=== PATIENT | female | born 1940 | race Caucasian/White ===

== ENCOUNTER 2016-12-18 16:09 | Emergency (ER) | payer OTHER ==
[~2016-12-18] VITALS: Ht 152.4 cm; Wt 51.8 kg
[~2016-12-18 16:09] MED LIST: ASPI-99 PO; IMOD2TAB PO; MORP30SU PO; PARO40TA PO; REME15TA PO; REST30CA PO; SYNT50TA PO
[2016-12-18 16:25] VITALS: BP 139/80; PULSE 84; RESP 17; TEMP 97.5; O2SAT 97
[2016-12-18 16:42] VITALS: BP 139/80; PULSE 85; RESP 16; TEMP 98.1; O2SAT 97
[2016-12-18 16:56] VITALS: O2SAT 97
--- NOTE | 2016-12-18 16:56 | PD ---
HPI Chief Complaint: General Weakness Time Seen by Provider: 16:45 Travel History International Travel<30 days: No Contact w/Intl Traveler<30days: No Traveled to known affect area: No History of Present Illness HPI This is a 76-year-old female presents via EMS for evaluation of fatigue. For the past 4-5 days the patient has had excessive fatigue as well as a dry cough, congestion. Her primary care physician Dr. Deng wilburn and a five-day course of azithromycin which she started 4 days ago. She has been feeling improved but she has been sleeping a lot. Today she woke up and went back to bed and reportedly her was attempting to wake her up was unable to and so paramedics were recalled. The patient woke up shortly after the paramedics arrived. The patient reports that she currently feels some fatigue but is otherwise without complaint. She denies chest pain or shortness of breath, nausea or vomiting, abdominal pain, diarrhea or constipation, dysuria, headache , blurred vision. She has a history of COPD, hypothyroidism, chronic back pain for which she takes morphine. She reports that her morphine is locked up at home and she has no axis to it, her administers it to her as prescribed and she has not taken any today. She has been seen here in the past for opiate overdose several times. She has no other complaints at this time. PFSH Past Medical History Arthritis: No Asthma: No Autoimmune Disease: No Blood Disorders: No Anxiety: Yes Depression: Yes Heart Rhythm Problems: No Cancer: No Cardiovascular Problems: No High Cholesterol: No Chemotherapy: No Chest Pain: Yes (AUGUST 2014) Congestive Heart Failure: No COPD: Yes Cerebrovascular Accident: No Diabetes: No Diminished Hearing: No Endocrine: Yes Gastrointestinal Disorders: No GERD: No Genitourinary: No Headaches: No Hiatal Hernia: No Hypertension: No Immune Disorder: No Implanted Vascular Access Dvce: No Kidney Stones: No Musculoskeletal: No Neurologic: Yes (SEIZURES) Psychiatric: No Reproductive: No Respiratory: Yes (?COPD) Immunizations Current: Yes Migraines: No Pneumonia: Yes Radiation Therapy: No Renal Failure: No Seizures: Yes Sickle Cell Disease: No Sleep Apnea: No Thyroid Disease: Yes (HYPOTHYROIDISM) Ulcer: No PNEUMOCCOCAL Vaccine (Year): 1 ?: Not Menopausal: Yes : 12 Para: 8 Miscarriage: 4 Tubal Ligation: Yes Past Surgical History Abdominal Surgery: Yes (cholesectomy) AICD: No Appendectomy: Yes Arteriovenous Shunt: No Cardiac Surgery: No Cholecystectomy: Yes (1984) Ear Surgery: No Endocrine Surgery: No Eye Surgery: No Genitourinary Surgery: No Gynecologic Surgery: Yes Hysterectomy: Yes Insulin Pump: No Joint Replacement: No Neurologic Surgery: No Oral Surgery: No Pacemaker: No Thoracic Surgery: No Other Surgery: Yes Social History Alcohol Use: No Tobacco Use: No Substance Use: No Allergies-Medications (Allergen,Severity, Reaction): Coded Allergies: Phenergan (Verified Allergy, Severe, Restlessness, 12/18/16) Talwin (Verified Allergy, Severe, Hallucinations, 12/18/16) Reported Meds & Prescriptions Reported Meds & Active Scripts Active Imodium A-D (Loperamide HCl) 2 Mg Tab 2 Mg PO ONCE PRN DO NOT EXCEED 8 CAPSULES/TABLETS 24 HOURS Paxil (Paroxetine HCl) 40 Mg Tab 40 Mg PO DAILY Reported Morphine Sulfate Ir 30 mg Tab (Morphine Sulfate) 30 Mg Tab 30 Mg PO Q6H PRN Synthroid 50 mcg (Levothyroxine Sodium) 50 Mcg Tab 50 Mcg PO DAILY Remeron 15 mg (Mirtazapine) 15 Mg Tab 15 Tab PO HS Aspirin 81 Mg Tab 81 Mg PO DAILY Restoril 30 mg (Temazepam) 30 Mg Cap 30 Mg PO HS Review of Systems Except as stated in HPI: all other systems reviewed are Neg Physical Exam Narrative GENERAL: Pleasant well-developed well-nourished female in no acute distress alert and interactive. SKIN: Warm and dry. HEAD: Atraumatic. Normocephalic. EYES: Pupils equal and round. No scleral icterus. No injection or drainage. ENT: No nasal bleeding or discharge. Mucous membranes pink and moist. NECK: Trachea midline. No JVD. CARDIOVASCULAR: Regular rate and rhythm. No murmur appreciated. RESPIRATORY: No accessory muscle use. Clear to auscultation. Breath sounds equal bilaterally. GASTROINTESTINAL: Abdomen soft, non-tender, nondistended. Hepatic and splenic margins not palpable. MUSCULOSKELETAL: No obvious deformities. No clubbing. No cyanosis. No edema. NEUROLOGICAL: Awake and alert. No obvious cranial nerve deficits. Motor grossly within normal limits. Normal speech. PSYCHIATRIC: Appropriate mood and affect; insight and judgment normal. Data Data Last Documented VS Vital Signs Date Time Temp Pulse Resp B/P Pulse Ox O2 Delivery O2 Flow Rate FiO2 12/18/16 16:56 97 Room Air 12/18/16 16:42 98.1 85 16 139/80 Orders Electrocardiogram (12/18/16 16:54) Complete Blood Count With Diff (12/18/16 16:54) Comprehensive Metabolic Panel (12/18/16 16:54) Creatine Kinase (Cpk) (12/18/16 16:54) Troponin I (12/18/16 16:54) Thyroid Stimulating Hormone (12/18/16 16:54) Urinalysis - C+S If Indicated (12/18/16 16:54) Chest, Single Ap (12/18/16 16:54) Ecg Monitoring (12/18/16 16:54) Iv Access Insert/Monitor (12/18/16 16:54) Oximetry (12/18/16 16:54) Sodium Chloride 0.9% Flush (Ns Flush) (12/18/16 17:00) Drug Screen, Random Urine (12/18/16 16:54) Alcohol (Ethanol) (12/18/16 16:54) Influenzae A/B Antigen (12/18/16 16:54) Labs Laboratory Tests Test 12/18/16 12/18/16 12/18/16 17:00 17:30 19:15 White Blood Count 5.6 TH/MM3 Red Blood Count 4.50 MIL/MM3 Hemoglobin 14.0 GM/DL Hematocrit 41.9 % Mean Corpuscular Volume 93.0 FL Mean Corpuscular Hemoglobin 31.1 PG Mean Corpuscular Hemoglobin 33.5 % Concent Red Cell Distribution Width 15.0 % Platelet Count 120 TH/MM3 Mean Platelet Volume 10.0 FL Neutrophils (%) (Auto) 72.0 % Lymphocytes (%) (Auto) 18.3 % Monocytes (%) (Auto) 7.9 % Eosinophils (%) (Auto) 1.1 % Basophils (%) (Auto) 0.7 % Neutrophils # (Auto) 4.0 TH/MM3 Lymphocytes # (Auto) 1.0 TH/MM3 Monocytes # (Auto) 0.4 TH/MM3 Eosinophils # (Auto) 0.1 TH/MM3 Basophils # (Auto) 0.0 TH/MM3 CBC Comment DIFF FINAL Differential Comment Urine Color YELLOW Urine Turbidity CLEAR Urine pH 6.5 Urine Specific [place] 1.007 Urine Protein NEG mg/dL Urine Glucose (UA) NEG mg/dL Urine Ketones TRACE mg/dL Urine Occult Blood NEG Urine Nitrite NEG Urine Bilirubin NEG Urine Urobilinogen LESS THAN 2.0 MG/DL Urine Leukocyte Esterase NEG Urine RBC LESS THAN 1 /hpf Urine WBC LESS THAN 1 /hpf Urine Squamous Epithelial <1 /hpf Cells Microscopic Urinalysis Comment CATH-CULT NOT IND Urine Opiates Screen POS Urine Barbiturates Screen NEG Urine Amphetamines Screen NEG Urine Benzodiazepines Screen POS Urine Cocaine Screen NEG Urine Cannabinoids Screen NEG Sodium Level 141 MEQ/L Potassium Level 4.5 MEQ/L Chloride Level 109 MEQ/L Carbon Dioxide Level 28.5 MEQ/L Anion Gap 4 MEQ/L Blood Urea Nitrogen 8 MG/DL Creatinine 0.79 MG/DL Estimat Glomerular Filtration 71 ML/MIN Rate Random Glucose 102 MG/DL Calcium Level 8.1 MG/DL Total Bilirubin 0.5 MG/DL Aspartate Amino Transf 24 U/L (AST/SGOT) Alanine Aminotransferase 19 U/L (ALT/SGPT) Alkaline Phosphatase 186 U/L Total Creatine Kinase 58 U/L Troponin I LESS THAN 0.02 NG/ML Total Protein 6.2 GM/DL Albumin 3.0 GM/DL Thyroid Stimulating Hormone 0.959 uIU/ML 3rd Gen Ethyl Alcohol Level LESS THAN 3 MG/DL MDM Medical Decision Making Medical Screen Exam Complete: Yes Emergency Medical Condition: Yes Medical Record Reviewed: Yes Differential Diagnosis Opiate overdose, bronchitis, sepsis, pneumonia, COPD exacerbation, electrolyte imbalance, dehydration Narrative Course This is a 76 year old female who has been having increased fatigue as well as a cough and congestion over the past 4-5 days, just completed a five-day course of azithromycin. Reportedly family members were having difficulty arousing her and so paramedics were called. Since her arrival here she has been awake, alert , properly interactive. Physical examination is reassuring. She's been ambulatory back and forth from the restroom with no difficulty. Plan is for basic lab work, chest x-ray, EKG, ECG monitoring pulse oximetry. The patient's laboratory imaging studies been reviewed. CBC reveals a platelet count of 120 otherwise unremarkable. CMP reveals calcium 8.1, ALP 186, total protein 6.2 otherwise unremarkable. TSH 0.959 toxicology positive for opiates and benzodiazepines urinalysis reveals trace ketones. Chest x-ray reveals no evidence of pneumonia. I suspect that her upper respiratory symptoms are viral in nature. This pointed time the plan is to discharge the patient home in the care of her daughter for follow-up with primary care physician. She is stable for discharge. Diagnosis Primary Impression: Upper respiratory infection Qualified Code: J06.9 - Upper respiratory tract infection, unspecified type Additional Impression: Medication side effect Qualified Code: T88.7XXA - Medication side effect, initial encounter Additional Instructions: Stay well-hydrated and well-nourished. Follow-up with primary care physician. Return for any emergent medical conditions. Med/Other Pt SpecificInfo: No Change to Meds Disposition: 01 DISCHARGE HOME Condition: Stable Eliseo Haro Dec 18, 2016 16:56
[2016-12-18] MEDS ORDERED: SODIUM CHLORIDE 0.9% FLUSH 5 ML FLUSH IV FLUSH PRN (17:00)
--- NOTE | 2016-12-18 17:18 | RADRPT ---
EXAM DATE/TIME: 12/18/2016 16:52 [facility] COMPARISON: CHEST SINGLE AP, August 31, 2015, 13:47. INDICATIONS : Cough MEDICAL HISTORY : Hypertension. Myocardial infarction. SURGICAL HISTORY : CABG. ENCOUNTER: Initial ACUITY: 4 - 6 days PAIN SCORE: 0/10 LOCATION: Bilateral chest FINDINGS: A single view of the chest demonstrates the lungs to be symmetrically aerated without evidence of mas s, infiltrate or effusion. Mild cardiomegaly. Osseous structures are intact. CONCLUSION: Mild cardiomegaly. Clear lungs. Thomas Roberts Jr., MD on December 18, 2016 at 17:15 Board Certified Radiologist. This report was verified electronically.
[2016-12-18 17:59] LABS: BASOPHIL % 0.7 % (0.0-2.0); EOSINOPHIL # 0.1 TH/MM3 (0-0.4); EOSINOPHIL % 1.1 % (0.0-4.0); HEMATOCRIT 41.9 % (35.0-46.0); HEMO FLAGS DIFF FINAL; LYMPH % 18.3 % (9.0-44.0); MEAN CORPUSCULAR HEMOGLOBIN 31.1 PG (27.0-34.0); MEAN CORPUSCULAR HGB CONC 33.5 % (32.0-36.0); MONO % 7.9 % (0.0-8.0); PLATELET COUNT 120 TH/MM3 (150-450); WHITE BLOOD COUNT 5.6 TH/MM3 (4.0-11.0)
[2016-12-18 18:06] LABS: BLOOD, URINE NEG (NEG); GLUCOSE,URINE NEG (NEG); KETONE, URINE TRACE mg/dL (NEG); NITRITE,URINE NEG (NEG); PH, URINE 6.5 (5.0-8.5); SQUAMOUS EPITHELIAL CELL URINE <1 /hpf (0-5); URINE COLOR YELLOW (YELLW/STRAW)
[2016-12-18 18:07] LABS: COMMENT (UR) CATH-CULT NOT IND; CULTURE IF INDICATED CATH CULTURE NOT IND
[2016-12-18 18:11] LABS: AMPHETAMINE, URINE NEG (NEG); BARBITURATES, URINE NEG (NEG); COCAINE, URINE NEG (NEG)
[2016-12-18 20:01] LABS: ANION GAP 4 MEQ/L (5-15); AST (GOT) 24 U/L (15-37); BICARBONATE 28.5 MEQ/L (21.0-32.0); BLOOD UREA NITROGEN 8 MG/DL (7-18); CHLORIDE 109 MEQ/L (98-107); GLOMERULAR FILTRATION RATE 71 ML/MIN (>89); POTASSIUM 4.5 MEQ/L (3.5-5.1); SODIUM (NA) 141 MEQ/L (136-145)
[2016-12-18 20:07] LABS: ALT (GPT) 19 U/L (10-53)
[2016-12-18 20:12] LABS: ALKALINE PHOSPHATASE 186 U/L (45-117); TOTAL BILIRUBIN ADULT 0.5 MG/DL (0.2-1.0)
[2016-12-18 20:15] LABS: CREATINE KINASE 58 U/L (26-192)
[2016-12-18 20:41] VITALS: BP 106/74
--- NOTE | 2016-12-19 12:08 | EKG ---
Date Performed: 12/18/2016 Time Performed: 18:26:47 PTAGE: 76 years EKG: Sinus rhythm NORMAL ECG Compared to prior tracing no significant change DOCTOR: Mac Bergman Interpretating Date/Time 12/19/2016 12:06:19
== END 2016-12-18 20:46 | disposition home or self-care (01) ==
LOC: NEDAMB 16:09
DX: J06.9 Acute upper respiratory infection, unspecified (principal); T88.7XXA Unspecified adverse effect of drug or medicament, initial encounter; R53.83 Other fatigue; I51.7 Cardiomegaly; J44.9 Chronic obstructive pulmonary disease, unspecified; E03.9 Hypothyroidism, unspecified; R56.9 Unspecified convulsions; F41.9 Anxiety disorder, unspecified; F32.9 Major depressive disorder, single episode, unspecified
CPT/HCPCS: 71010; 80053; 80307; 81001; 82550; 84443; 84484; 85025; 87804; 93005

== ENCOUNTER 2017-07-08 18:43 | Emergency (ER) | payer OTHER ==
[~2017-07-08] VITALS: Ht 152.4 cm; Wt 47.0 kg
[2017-07-08 18:45] VITALS: BP 134/70; PULSE 102; RESP 13; TEMP 98.7; O2SAT 98
--- NOTE | 2017-07-08 19:13 | PD ---
HPI Chief Complaint: General Weakness Time Seen by Provider: 19:12 Travel History International Travel<30 days: No Contact w/Intl Traveler<30days: No Traveled to known affect area: No History of Present Illness HPI 76-year-old female came to the emergency room with history of not feeling well for past 1 month. Patient says that she has been nauseous and decrease appetite for one month. She has vomited once or twice during that period but overall has lost some weight. No history of diarrhea or constipation. She has had regular bowel movements that's like her usual. No history of blood in her vomit or stool. No history of cough, no history of fever or chills. Patient is a smoker and smokes half a pack for over 25 years. She appeared to be extremely anxious and shaky. Patient says that she has had issues with her nerves and her primary care will did not give anything for her nerves. She thinks that most of her problems are because she is anxious and depressed. Patient says everybody around me is dying. Patient does not have any suicidal thoughts. Vital signs were relatively stable. Patient is on antidepressant medication. She has not discussed about her condition and past 1 month with a primary care physician. Her son brought her in. No history of chest pain or any other new pains. [facility] Past Medical History Narrative Medical List of her past medical, surgical, social and family history is reviewed from the nursing note. Arthritis: No Asthma: No Autoimmune Disease: No Blood Disorders: No Anxiety: Yes Depression: Yes Heart Rhythm Problems: No Cancer: No Cardiovascular Problems: No High Cholesterol: No Chemotherapy: No Chest Pain: Yes (AUGUST 2014) Congestive Heart Failure: No COPD: Yes Cerebrovascular Accident: No Diabetes: No Diminished Hearing: No Endocrine: Yes Gastrointestinal Disorders: No GERD: No Genitourinary: No Headaches: No Hiatal Hernia: No Hypertension: No Immune Disorder: No Implanted Vascular Access Dvce: No Kidney Stones: No Musculoskeletal: No Neurologic: Yes (SEIZURES) Psychiatric: No Reproductive: No Respiratory: Yes (?COPD) Immunizations Current: Yes Migraines: No Pneumonia: Yes Radiation Therapy: No Renal Failure: No Seizures: Yes Sickle Cell Disease: No Sleep Apnea: No Thyroid Disease: Yes (HYPOTHYROIDISM) Ulcer: No PNEUMOCCOCAL Vaccine (Year): 1 Menopausal: Yes : 12 Para: 8 Miscarriage: 4 Tubal Ligation: Yes Past Surgical History Abdominal Surgery: Yes (cholesectomy) AICD: No Appendectomy: Yes Arteriovenous Shunt: No Cardiac Surgery: No Cholecystectomy: Yes (1984) Ear Surgery: No Endocrine Surgery: No Eye Surgery: No Genitourinary Surgery: No Gynecologic Surgery: Yes Hysterectomy: Yes Insulin Pump: No Joint Replacement: No Neurologic Surgery: No Oral Surgery: No Pacemaker: No Thoracic Surgery: No Other Surgery: Yes Social History Alcohol Use: No Tobacco Use: Yes Substance Use: No Allergies-Medications (Allergen,Severity, Reaction): Coded Allergies: pentazocine (Unverified Allergy, Severe, Hallucinations, 01/09/17) promethazine (Unverified Allergy, Severe, Restlessness, 01/09/17) Comments List of her allergies reviewed from the nursing note. Reported Meds & Prescriptions Reported Meds & Active Scripts Active Reported Synthroid (Levothyroxine Sodium) 50 Mcg Tab 50 Mcg PO DAILY Restoril (Temazepam) 30 Mg Cap 30 Mg PO HS PRN Paxil (Paroxetine HCl) 10 Mg Tab 40 Mg PO DAILY Morphabond ER 12 HR (Morphine Sulfate) 30 Mg Tab 30 Mg PO Q6HR Narrative Medication List of her home medications reviewed from the nursing note. Review of Systems Except as stated in HPI: all other systems reviewed are Neg General / Constitutional: Positive: Weight Loss Gastrointestinal: Positive: Loss of Appetite Psychiatric: Positive: Anxiety Physical Exam Narrative GENERAL: Awake, alert, anxious, mild distress SKIN: Focused skin assessment warm/dry. HEAD: Atraumatic. Normocephalic. EYES: Pupils equal and round. No scleral icterus. No injection or drainage. ENT: No nasal bleeding or discharge. Mucous membranes pink and moist. NECK: Trachea midline. No JVD. CARDIOVASCULAR: Regular rate and rhythm. No murmur appreciated. RESPIRATORY: No accessory muscle use. Clear to auscultation. Breath sounds equal bilaterally. GASTROINTESTINAL: Abdomen soft, non-tender, nondistended. Hepatic and splenic margins not palpable. MUSCULOSKELETAL: No obvious deformities. No clubbing. No cyanosis. No edema. NEUROLOGICAL: Awake and alert. No obvious cranial nerve deficits. Motor grossly within normal limits. Normal speech. Fine tremors PSYCHIATRIC: Appropriate mood and affect; insight and judgment normal. Data Data Last Documented VS Vital Signs Date Time Temp Pulse Resp B/P (MAP) Pulse Ox O2 Delivery O2 Flow Rate FiO2 07/08/17 21:42 76 16 131/77 (95) 98 07/08/17 18:45 98.7 Orders Orders Complete Blood Count With Diff (07/08/17 19:20) Comprehensive Metabolic Panel (07/08/17 19:20) Electrocardiogram (07/08/17 ) Urinalysis - C+S If Indicated (07/08/17 19:20) Chest, Single Ap (07/08/17 ) Sodium Chlorid 0.9% 500 Ml Inj (Ns 500 M (07/08/17 19:30) Thyroid Stimulating Hormone (07/08/17 19:23) Ed Discharge Order (07/08/17 21:33) Labs Laboratory Tests Test 07/08/17 19:35 07/08/17 20:45 White Blood Count 4.8 TH/MM3 Red Blood Count 4.24 MIL/MM3 Hemoglobin 13.1 GM/DL Hematocrit 38.6 % Mean Corpuscular Volume 91.0 FL Mean Corpuscular Hemoglobin 30.9 PG Mean Corpuscular Hemoglobin Concent 33.9 % Red Cell Distribution Width 14.6 % Platelet Count 134 TH/MM3 Mean Platelet Volume 9.6 FL Neutrophils (%) (Auto) 58.6 % Lymphocytes (%) (Auto) 31.6 % Monocytes (%) (Auto) 7.7 % Eosinophils (%) (Auto) 1.0 % Basophils (%) (Auto) 1.1 % Neutrophils # (Auto) 2.8 TH/MM3 Lymphocytes # (Auto) 1.5 TH/MM3 Monocytes # (Auto) 0.4 TH/MM3 Eosinophils # (Auto) 0.0 TH/MM3 Basophils # (Auto) 0.1 TH/MM3 CBC Comment DIFF FINAL Differential Comment Blood Urea Nitrogen 15 MG/DL Creatinine 1.02 MG/DL Random Glucose 90 MG/DL Total Protein 6.4 GM/DL Albumin 3.3 GM/DL Calcium Level 8.0 MG/DL Alkaline Phosphatase 148 U/L Aspartate Amino Transf (AST/SGOT) 16 U/L Alanine Aminotransferase (ALT/SGPT) 14 U/L Total Bilirubin 0.3 MG/DL Sodium Level 135 MEQ/L Potassium Level 4.0 MEQ/L Chloride Level 102 MEQ/L Carbon Dioxide Level 25.0 MEQ/L Anion Gap 8 MEQ/L Estimat Glomerular Filtration Rate 53 ML/MIN Thyroid Stimulating Hormone 3rd Gen 3.040 uIU/ML Urine Color LIGHT-YELLOW Urine Turbidity CLEAR Urine pH 7.0 Urine Specific [place] 1.007 Urine Protein NEG mg/dL Urine Glucose (UA) NEG mg/dL Urine Ketones NEG mg/dL Urine Occult Blood NEG Urine Nitrite NEG Urine Bilirubin NEG Urine Urobilinogen LESS THAN 2.0 MG/DL Urine Leukocyte Esterase MOD Urine RBC 2 /hpf Urine WBC 1 /hpf Urine Squamous Epithelial Cells 2 /hpf Urine Bacteria RARE /hpf Microscopic Urinalysis Comment CULT NOT INDICATED MDM Medical Decision Making Medical Screen Exam Complete: Yes Emergency Medical Condition: Yes Medical Record Reviewed: Yes Interpretation(s) Twelve-lead EKG was reviewed by me. Normal sinus rhythm, normal axis, nonspecific ST-T wave changes. Heart rate of 87 bpm. Differential Diagnosis Left right abnormality, dehydration, lung malignancy, Narrative Course 8:38 PM blood test results are back mostly and they're within acceptable limits. TSH is pending. Chest x-rays negative. Patient was given some IV fluid bolus. At this point her symptoms have been prolonged and rather vague. Initial test results are within normal limit. I have let her know that she would need to follow up with her primary care and need to address this if any further testing is needed. Any other testing would be beyond the realm of emergency room given her vagueness of the complaint. Patient understands. Awaiting for the UA. If UA is negative patient will be discharged home. Procedures EKG Prior to Arrival: No Diagnosis Primary Impression: Generalized weakness Additional Impression: Anxiety Referrals: Primary Care Physician Additional Instructions: Please follow-up with your primary care in next couple days. Please reiterate all your symptoms to primary care and asked for a psychiatric referral. If your primary care feels necessary he could order some more tests as an outpatient. Return to the ER if condition worsens or any other new concerns. Med/Other Pt SpecificInfo: No Change to Meds Disposition: 01 DISCHARGE HOME Condition: Stable Zeb Tran MD Jul 08, 2017 19:13
[2017-07-08] MEDS ORDERED: SODIUM CHLORID 0.9% 500 ML INJ 500 ML IV ONE (19:30)
[2017-07-08] MEDS ORDERED: REST30CA PO (19:41)
[2017-07-08] MEDS ORDERED: PAXI10TA8 PO (19:41)
[2017-07-08] MEDS ORDERED: LEVO.05 PO (19:41)
[2017-07-08] MEDS ORDERED: MORP-44 PO (19:41)
[2017-07-08 19:59] LABS: AUTOMATED NEUTROPHIL # 2.8 TH/MM3 (1.8-7.7); BASOPHIL # 0.1 TH/MM3 (0-0.2); BASOPHIL % 1.1 % (0.0-2.0); HEMATOCRIT 38.6 % (35.0-46.0); HEMOGLOBIN 13.1 GM/DL (11.6-15.3); LYMPH % 31.6 % (9.0-44.0); LYMPHOCYTE # 1.5 TH/MM3 (1.0-4.8); MEAN CORPUSCULAR HEMOGLOBIN 30.9 PG (27.0-34.0); MEAN CORPUSCULAR HGB CONC 33.9 % (32.0-36.0); MEAN PLATELET VOLUME 9.6 FL (7.0-11.0); MONO % 7.7 % (0.0-8.0); MONOCYTE # 0.4 TH/MM3 (0-0.9); NEUT % 58.6 % (16.0-70.0); PLATELET COUNT 134 TH/MM3 (150-450); RED BLOOD COUNT 4.24 MIL/MM3 (4.00-5.30); RED CELL DISTRIBUTION WIDTH 14.6 % (11.6-17.2); WHITE BLOOD COUNT 4.8 TH/MM3 (4.0-11.0)
--- NOTE | 2017-07-08 20:04 | RADRPT ---
EXAM DATE/TIME: 07/08/2017 19:29 [facility] COMPARISON: CHEST SINGLE AP, December 18, 2016, 16:52. INDICATIONS : Short of breath. MEDICAL HISTORY : Hypertension. Myocardial infarction. SURGICAL HISTORY : CABG. ENCOUNTER: Initial ACUITY: 1 day PAIN SCORE: 0/10 LOCATION: Bilateral chest FINDINGS: A single view of the chest demonstrates the lungs to be symmetrically aerated without evidence of mas s, infiltrate or effusion. The cardiomediastinal contours are unremarkable. Moderate severity scoli osis of the lumbar spine convex towards the right. Stable healed right rib fractures.. CONCLUSION: The lungs are clear. Thomas Jordan MD on July 08, 2017 at 20:01 Board Certified Radiologist. This report was verified electronically.
[2017-07-08 20:22] LABS: ALBUMIN 3.3 GM/DL (3.4-5.0); AST (GOT) 16 U/L (15-37); BLOOD UREA NITROGEN 15 MG/DL (7-18); CHLORIDE 102 MEQ/L (98-107); CREATININE 1.02 MG/DL (0.50-1.00); GLOMERULAR FILTRATION RATE 53 ML/MIN (>89); GLUCOSE,RANDOM 90 MG/DL (74-106); SODIUM (NA) 135 MEQ/L (136-145)
[2017-07-08 20:23] LABS: ALT (GPT) 14 U/L (10-53)
[2017-07-08 20:25] LABS: ALKALINE PHOSPHATASE 148 U/L (45-117); TOTAL BILIRUBIN ADULT 0.3 MG/DL (0.2-1.0); TOTAL PROTEIN 6.4 GM/DL (6.4-8.2)
[2017-07-08 21:30] LABS: BACTERIA, URINE RARE /hpf; BILIRUBIN, URINE NEG (NEG); BLOOD, URINE NEG (NEG); GLUCOSE,URINE NEG (NEG); KETONE, URINE NEG (NEG); NITRITE,URINE NEG (NEG); SQUAMOUS EPITHELIAL CELL URINE 2 /hpf (0-5); URINE COLOR LIGHT-YELLOW (YELLW/STRAW); URINE LEUKOCYTE ESTERASE MOD (NEG)
[2017-07-08 21:42] VITALS: BP 131/77
--- NOTE | 2017-07-09 10:52 | EKG ---
Date Performed: 07/08/2017 Time Performed: 19:38:16 PTAGE: 76 years EKG: Sinus rhythm LOW QRS VOLTAGE IN EXTREMITY LEADS BORDERLINE ECG Since the prior tracing, there has been no signifi cant change PREVIOUS TRACING : 12/18/2016 18.26 DOCTOR: Ilir Munson Interpretating Date/Time 07/09/2017 10:50:08
== END 2017-07-08 21:44 | disposition home or self-care (01) ==
LOC: NEPC 18:43
DX: R53.1 Weakness (principal); F41.9 Anxiety disorder, unspecified; F32.9 Major depressive disorder, single episode, unspecified; J44.9 Chronic obstructive pulmonary disease, unspecified; R56.9 Unspecified convulsions; E03.9 Hypothyroidism, unspecified; Z72.0 Tobacco use; Z79.899 Other long term (current) drug therapy; Z88.8 Allergy status to other drugs, medicaments and biological substances
CPT/HCPCS: 71045; 80053; 81001; 84443; 85025; 93005; 96360; 99284; J7040

== ENCOUNTER 2018-01-21 23:00 | Inpatient (IN) ==
[2018-01-21] MEDS ORDERED: Thiamine Inj 100 MG in Sodium Chlor 0.9% Inj 100 ML IV.SIG ONE (23:26)
--- NOTE | 2018-01-21 23:53 | XR ---
EXAM DATE: 01/21/2018 11:43 PM EDT AGE/SEX: 77 years / Female INDICATIONS: Cough. CLINICAL DATA: This is the patient's initial encounter. Patient reports that signs and symptoms have been present for 1 day and indicates a pain score of Nonresponsive. MEDICAL/SURGICAL HISTORY: Hypertension. Myocardial infarction. CABG. COMPARISON: [facility] [place], CHEST SINGLE AP, 07/08/2017. . FINDINGS: No acute infiltrate demonstrated. No pleural effusion or pneumothorax. Mild chronic interstitial opac ities are again noted. Old rib fractures with pleural thickening/scarring again seen on the right. Heart size stable, upper limits of normal. CONCLUSION: No acute cardiopulmonary disease demonstrated. Electronically signed by: Jace Pompa MD 01/21/2018 11:52 PM EDT
--- NOTE | 2018-01-22 00:05 | ED ---
HPI General Chief complaint: Overdose Stated complaint: Poss OD Time Seen by Provider: 01/21/18 23:11 Source: patient History of Present Illness HPI narrative: The patient is a 77 year old female who presents to the [facility] emergency department with a history of being brought in by ambulance services after ambulance services were called for an attempted overdose. The history is quite confusing according to ambulance services. The patient lives with her son and daughter. The patient according to the son has her medications administered by him on a daily basis. However, the patient's daughter reports that the patient intentionally overdosed on Unisom, 36 tablets every 3 days. The timeframe was later adjusted by the family to 36 tablets over 8 days. The patient herself denies any suicidal ideations depression. The patient is confused on examination. The patient is oriented only to person , however not place, time, or situation, therefore the patient's history is limited from her. Patient's history will be obtained from reviewing the electronic medical record as the family has not arrived. The patient's family arrived, the patient's daughter reports that they have been administering the patient's normal medications, however somehow she was able to obtain a bottle of Unisom. They estimate that she took approximately 36 tablets over the last 3-8 days. Related Data Home Medications Medication Instructions Recorded Confirmed diphenhydramine HCl [Unisom 50 mg PO Q4-6H PRN 01/22/18 01/22/18 Sleepgels] levothyroxine 50 mcg PO DAILY 01/22/18 01/22/18 mirtazapine 15 mg PO HS 01/22/18 01/22/18 morphine 30 mg PO TID 01/22/18 01/22/18 paroxetine HCl 40 mg PO DAILY 01/22/18 01/22/18 temazepam 1 tab PO DAILY 01/22/18 01/22/18 Allergies Allergy/AdvReac Type Severity Reaction Status Date / Time pentazocine Allergy Severe Hallucinati Unverified 01/09/17 16:28 ons promethazine Allergy Severe Restlessnes Unverified 01/09/17 16:28 s Review of Systems ROS: all other systems reviewed are negative (Except what is mentioned in the HPI.) PMFSH Social History Social History Substance History: No History of Abuse Second Hand Smoke Exposure: No Smoking Status: Never smoker How Often Do You Have a Drink Containing Alcohol: Unable to Obtain Recent Travel in [facility] within the Last 8 Weeks: No Recent Out of Country Travel within the Last 8 Weeks: No Immunization History Tetanus Immunization: Unsure Exam Const General: cooperative, no acute distress and well developed Nutritional Appearance: thin Orientation: alert, awake, oriented to person, not oriented to place, not oriented to time and confused [facility] Head: normocephalic and atraumatic Nose: no nasal discharge and no epistaxis Mouth: moist mucous membranes Throat: posterior oropharynx normal and uvula midline Eyes Sclera: normal sclerae Pupils: PERRL and dilated (8 mm bilaterally. They are reactive to light.) Neck Neck: no meningeal signs, trachea midline and no JVD Resp Effort & Inspection: no use of accessory muscles Auscultation: clear to auscultation bilaterally Cardio Rate: tachycardic (Tachycardia in the 1 teens, no pulse deficits to the extremities on simultaneous auscultation and palpation of her radial artery) Rhythm: regular rhythm Heart Sounds: no gallops, no murmurs and no rubs GI Inspection: non-distended Palpation: soft, no hepatosplenomegaly and nontender Auscultation: normal bowel sounds Back/Spine/Pelvis Back: no CVA tenderness Skin General: dry skin (warm) Neuro General: alert, awake and oriented (Person, however not place, time, or situation.) Cranial Nerves: CN's II-XI intact bilaterally and other Speech: speech normal Motor: strength 5/5 throughout and no movement abnormalities noted Sensory Exam: no sensory deficits noted Extrem General: normal to inspection (No calf tenderness on palpation. 2+ pulses in all 4 extremities.), no clubbing, no cyanosis and no edema Psych Affect: irritable affect Judgment: limited Course Consultations Consultation #1: The patient's case including history, pertinent physical examination findings, and laboratory studies were discussed with Dr. Kennedy. It was agreed that the patient would be admitted to the hospitalist service. Initial Documented Vital Signs Temperature 98 F 01/21/18 23:13 Pulse Rate 114 H 01/21/18 23:13 Respiratory Rate 18 01/21/18 23:13 Blood Pressure 134/74 01/21/18 23:13 Pulse Oximetry 98 01/21/18 23:13 Last Documented Vital Signs Temperature 98.3 F 01/22/18 02:57 Pulse Rate 102 H 01/22/18 02:57 Respiratory Rate 18 01/22/18 02:59 Blood Pressure 137/83 01/22/18 02:59 Pulse Oximetry 98 01/22/18 02:59 Medical Decision Making MDM Narrative Medical decision making narrative: During the course of the patient's emergency department visit, the patient's history, examination, and differential diagnosis were reviewed with the patient. The patient was placed on a site monitor with oximetry and frequent blood pressure monitoring. The patient had IV access obtained and blood work sent for analysis. Diagnostic evaluation was started regarding this patient's altered mentation and possible The patient was initially provided normal saline IV fluids, thiamine 100 mg IV. The patient's diagnostic workup is remarkable for a white count of 13.1, neutrophil percent 89.4, platelets 209, hemoglobin 12.2, PT PTT within normal limits, chemistry is remarkable for a troponin I of less than 0.02, CPK 331, TSH within normal limits, protein corrected calcium 7.5, GFR 66, CK-MB percent 1.6, alk phos 220, albumin 3.2, ammonia level within normal limits. Urinalysis shows trace leukocyte esterase, hazy urine, rare bacteria, 19 WBCs, culture indicated, urine drug screen is positive for opiates, salicylate less than 1.7, seen in 2, alcohol level less than 3. CT scan of the brain shows motion degradation, no acute abnormality, chest x-ray shows no acute cardiopulmonary disease. The patient's results were discussed with the patient, including the plan of care. I explained that further testing and/ or monitoring is indicated based on the patient's history, examination, and/ or laboratory findings. Therefore, I recommended admission for additional evaluation. The patient expressed understanding and was agreeable with this plan. The patient was admitted to the hospital in guarded condition and sent to a bed under the care of the [facility] service. Medical Screen Exam Complete: Yes Emergency Medical Condition: Yes Differential Diagnosis Differential Diagnosis: Anticholinergic toxidrome, versus sympathomimetic toxidrome, versus withdrawal syndrome, versus hepatic encephalopathy, versus electrolyte derangements, versus urinary tract infection, versus intracranial abnormality. Medical Records Medical records reviewed: Yes I reviewed the patient's medical records. Lab Data Lab results reviewed: Yes I reviewed the patient's lab results. Result diagrams: 01/21/18 23:59 01/21/18 23:59 Lab Results 01/21/18 01/21/18 01/21/18 Range/Units 23:55 23:59 23:59 WBC 13.1 H (4.0-11.0) th/mm3 RBC 4.03 (4.00-5.30) mil/mm3 Hgb 12.2 (11.6-15.3) gm/dL Hct 36.7 (35.0-46.0) % MCV 91.1 (80.0-100.0) fL MCH 30.2 (27.0-34.0) pg MCHC 33.1 (32.0-36.0) % RDW 14.3 (11.6-17.2) % Plt Count 209 (150-450) th/mm3 MPV 9.6 (7.0-11.0) fL Neut % (Auto) 89.4 H (16.0-70.0) % Lymph % (Auto) 3.8 L (9.0-44.0) % [place] % (Auto) 6.7 (0.0-8.0) % Eos % (Auto) 0.0 (0.0-4.0) % Baso % (Auto) 0.1 (0.0-2.0) % Neut # (Auto) 11.7 H (1.8-7.7) th/mm3 Lymph # (Auto) 0.5 L (1.0-4.8) th/mm3 [place] # (Auto) 0.9 (0.0-0.9) th/mm3 Eos # (Auto) 0.0 (0.0-0.4) th/mm3 Baso # (Auto) 0.0 (0.0-0.2) th/mm3 WBC Differential . Differential Comment Auto diff final PT 11.4 (9.8-11.6) sec INR 1.1 Ratio APTT 27.1 (24.3-30.1) sec Sodium (136-145) meq/L Potassium (3.5-5.1) meq/L Chloride (98-107) meq/L Carbon Dioxide (21.0-32.0) meq/L Anion Gap (5-15) meq/L BUN (7-18) mg/dL Creatinine (0.50-1.00) mg/dL Estimated GFR (>89) mL/min Random Glucose (74-106) mg/dL Calcium (8.5-10.1) mg/dL Prot Corrected Calcium (8.5-10.1) mg/dL Total Bilirubin (0.2-1.0) mg/dL AST (15-37) U/L ALT (10-53) U/L Alkaline Phosphatase (45-117) U/L Ammonia 31 (11-32) mcmol/L Total Creatine Kinase (26-192) U/L CK-MB (CK-2) (0.5-3.6) ng/mL CK-MB (CK-2) % (0.0-4.0) % Troponin I (0.02-0.05) ng/mL Total Protein (6.4-8.2) g/dL Albumin (3.4-5.0) g/dL TSH (0.358-3.740) uIU/mL Urine Color (Yellw/Straw) Urine Clarity (Clear) Urine pH (5.0-8.5) Ur Specific [place] (1.002-1.035) Urine Protein (Neg-Trace) mg/dL Urine Glucose (UA) (Negative) mg/dL Urine Ketones (Negative) mg/dL Urine Occult Blood (Negative) Urine Nitrate (Negative) Urine Bilirubin (Negative) Urine Urobilinogen (Less than 2) mg/dL Ur Leukocyte Esterase (Negative) Urine RBC (0-3) /hpf Urine WBC (0-5) /hpf Ur Squamous Epith Cells (0-5) /hpf Urine Bacteria (None) /hpf Hyaline Casts (0-3) /lpf Urine Mucus (Occasional) /lpf Micro UA Comment Ur Microscopic Review Urine Culture Comments Salicylates (2.8-20.0) mg/dL Urine Opiates Screen (Neg) Acetaminophen (10.0-30.0) mcg/mL Ur Barbiturates Screen (Neg) Ur Amphetamines Screen (Neg) U Benzodiazepines Scrn (Neg) Urine Cocaine Screen (Neg) U Cannabinoids Screen (Neg) Serum Alcohol (0-5) mg/dL 01/21/18 01/21/18 01/22/18 Range/Units 23:59 23:59 01:20 WBC (4.0-11.0) th/mm3 RBC (4.00-5.30) mil/mm3 Hgb (11.6-15.3) gm/dL Hct (35.0-46.0) % MCV (80.0-100.0) fL MCH (27.0-34.0) pg MCHC (32.0-36.0) % RDW (11.6-17.2) % Plt Count (150-450) th/mm3 MPV (7.0-11.0) fL Neut % (Auto) (16.0-70.0) % Lymph % (Auto) (9.0-44.0) % [place] % (Auto) (0.0-8.0) % Eos % (Auto) (0.0-4.0) % Baso % (Auto) (0.0-2.0) % Neut # (Auto) (1.8-7.7) th/mm3 Lymph # (Auto) (1.0-4.8) th/mm3 [place] # (Auto) (0.0-0.9) th/mm3 Eos # (Auto) (0.0-0.4) th/mm3 Baso # (Auto) (0.0-0.2) th/mm3 WBC Differential Differential Comment PT (9.8-11.6) sec INR Ratio APTT (24.3-30.1) sec Sodium 138 (136-145) meq/L Potassium 3.5 (3.5-5.1) meq/L Chloride 102 (98-107) meq/L Carbon Dioxide 24.9 (21.0-32.0) meq/L Anion Gap 11 (5-15) meq/L BUN 8 (7-18) mg/dL Creatinine 0.84 (0.50-1.00) mg/dL Estimated GFR 66 L (>89) mL/min Random Glucose 106 (74-106) mg/dL Calcium 7.4 L* (8.5-10.1) mg/dL Prot Corrected Calcium 7.5 L (8.5-10.1) mg/dL Total Bilirubin 0.7 (0.2-1.0) mg/dL AST 25 (15-37) U/L ALT 16 (10-53) U/L Alkaline Phosphatase 220 H (45-117) U/L Ammonia (11-32) mcmol/L Total Creatine Kinase 331 H (26-192) U/L CK-MB (CK-2) 5.4 H (0.5-3.6) ng/mL CK-MB (CK-2) % 1.6 (0.0-4.0) % Troponin I Less than 0.02 L (0.02-0.05) ng/mL Total Protein 6.9 (6.4-8.2) g/dL Albumin 3.2 L (3.4-5.0) g/dL TSH 1.040 (0.358-3.740) uIU/mL Urine Color (Yellw/Straw) Urine Clarity (Clear) Urine pH (5.0-8.5) Ur Specific [place] (1.002-1.035) Urine Protein (Neg-Trace) mg/dL Urine Glucose (UA) (Negative) mg/dL Urine Ketones (Negative) mg/dL Urine Occult Blood (Negative) Urine Nitrate (Negative) Urine Bilirubin (Negative) Urine Urobilinogen (Less than 2) mg/dL Ur Leukocyte Esterase (Negative) Urine RBC (0-3) /hpf Urine WBC (0-5) /hpf Ur Squamous Epith Cells (0-5) /hpf Urine Bacteria (None) /hpf Hyaline Casts (0-3) /lpf Urine Mucus (Occasional) /lpf Micro UA Comment Ur Microscopic Review Urine Culture Comments Salicylates Less than 1.7 L (2.8-20.0) mg/dL Urine Opiates Screen Pos H (Neg) Acetaminophen Less than 2.0 L (10.0-30.0) mcg/mL Ur Barbiturates Screen Neg (Neg) Ur Amphetamines Screen Neg (Neg) U Benzodiazepines Scrn Neg (Neg) Urine Cocaine Screen Neg (Neg) U Cannabinoids Screen Neg (Neg) Serum Alcohol Less than 3 (0-5) mg/dL 01/22/18 Range/Units 01:20 WBC (4.0-11.0) th/mm3 RBC (4.00-5.30) mil/mm3 Hgb (11.6-15.3) gm/dL Hct (35.0-46.0) % MCV (80.0-100.0) fL MCH (27.0-34.0) pg MCHC (32.0-36.0) % RDW (11.6-17.2) % Plt Count (150-450) th/mm3 MPV (7.0-11.0) fL Neut % (Auto) (16.0-70.0) % Lymph % (Auto) (9.0-44.0) % [place] % (Auto) (0.0-8.0) % Eos % (Auto) (0.0-4.0) % Baso % (Auto) (0.0-2.0) % Neut # (Auto) (1.8-7.7) th/mm3 Lymph # (Auto) (1.0-4.8) th/mm3 [place] # (Auto) (0.0-0.9) th/mm3 Eos # (Auto) (0.0-0.4) th/mm3 Baso # (Auto) (0.0-0.2) th/mm3 WBC Differential Differential Comment PT (9.8-11.6) sec INR Ratio APTT (24.3-30.1) sec Sodium (136-145) meq/L Potassium (3.5-5.1) meq/L Chloride (98-107) meq/L Carbon Dioxide (21.0-32.0) meq/L Anion Gap (5-15) meq/L BUN (7-18) mg/dL Creatinine (0.50-1.00) mg/dL Estimated GFR (>89) mL/min Random Glucose (74-106) mg/dL Calcium (8.5-10.1) mg/dL Prot Corrected Calcium (8.5-10.1) mg/dL Total Bilirubin (0.2-1.0) mg/dL AST (15-37) U/L ALT (10-53) U/L Alkaline Phosphatase (45-117) U/L Ammonia (11-32) mcmol/L Total Creatine Kinase (26-192) U/L CK-MB (CK-2) (0.5-3.6) ng/mL CK-MB (CK-2) % (0.0-4.0) % Troponin I (0.02-0.05) ng/mL Total Protein (6.4-8.2) g/dL Albumin (3.4-5.0) g/dL TSH (0.358-3.740) uIU/mL Urine Color Yellow (Yellw/Straw) Urine Clarity Hazy H (Clear) Urine pH 7.0 (5.0-8.5) Ur Specific [place] 1.010 (1.002-1.035) Urine Protein Negative (Neg-Trace) mg/dL Urine Glucose (UA) Negative (Negative) mg/dL Urine Ketones Negative (Negative) mg/dL Urine Occult Blood Negative (Negative) Urine Nitrate Negative (Negative) Urine Bilirubin Negative (Negative) Urine Urobilinogen 2.0 H (Less than 2) mg/dL Ur Leukocyte Esterase Trace H (Negative) Urine RBC Less than 1 (0-3) /hpf Urine WBC 19 H (0-5) /hpf Ur Squamous Epith Cells <1 (0-5) /hpf Urine Bacteria Rare H (None) /hpf Hyaline Casts 1 (0-3) /lpf Urine Mucus Few H (Occasional) /lpf Micro UA Comment Cath-culture ind Ur Microscopic Review Not Reportable Urine Culture Comments Cath-cult indicated Salicylates (2.8-20.0) mg/dL Urine Opiates Screen (Neg) Acetaminophen (10.0-30.0) mcg/mL Ur Barbiturates Screen (Neg) Ur Amphetamines Screen (Neg) U Benzodiazepines Scrn (Neg) Urine Cocaine Screen (Neg) U Cannabinoids Screen (Neg) Serum Alcohol (0-5) mg/dL Imaging Data Radiologist's impression: Chest X-Ray 01/21/18 23:26 CONCLUSION: No acute cardiopulmonary disease demonstrated. Head CT 01/21/18 23:26 CONCLUSION: Motion degraded study. No acute abnormality demonstrated. . ECG Data Attestation: I personally reviewed and interpreted this ECG as follows: Interpretation: The patient had a EKG done on arrival. The patient's EKG revealed sinus tachycardia rate of 104, QRS duration 82 ms, QTC 408 ms. Nonspecific T-wave abnormalities are noted. No acute ST segment elevation. Discharge Plan Discharge Disposition Patient Disposition: 30 Still Patient Discharge Details Diagnosis: Altered mental status, Acute drug overdose Physicians Team ED Provider: Kristen Bergman Primary Care Provider: Bibi Vilchis Attending Provider: Juventino Kennedy Other Providers: [employer] Status ED Status: Admitted Observation Patient
[2018-01-22 00:07] LABS: Baso % (Auto) 0.1 % (0.0-2.0); Hematocrit 36.7 % (35.0-46.0); Hemoglobin 12.2 gm/dL (11.6-15.3); Lymph # (Auto) 0.5 th/mm3 (1.0-4.8); Lymph % (Auto) 3.8 % (9.0-44.0); Mean Corpuscular HGB Conc 33.1 % (32.0-36.0); Mean Corpuscular Hemoglobin 30.2 pg (27.0-34.0); Mean Corpuscular Volume 91.1 fL (80.0-100.0); Mean Platelet Volume 9.6 fL (7.0-11.0); Mono # (Auto) 0.9 th/mm3 (0.0-0.9); Mono % (Auto) 6.7 % (0.0-8.0); Neut # (Auto) 11.7 th/mm3 (1.8-7.7); Neut % (Auto) 89.4 % (16.0-70.0); Platelet Count 209 th/mm3 (150-450); Red Blood Count 4.03 mil/mm3 (4.00-5.30); Red Cell Distribution Width 14.3 % (11.6-17.2); White Blood Count 13.1 th/mm3 (4.0-11.0)
--- NOTE | 2018-01-22 00:08 | CT ---
EXAM DATE: 01/21/2018 11:59 PM EDT AGE/SEX: 77 years / Female INDICATIONS: Altered mental status. CLINICAL DATA: This is the patient's initial encounter. Patient reports that signs and symptoms have been present for 1 day and indicates a pain score of Nonresponsive. MEDICAL/SURGICAL HISTORY: Non-responsive. Non-responsive. RADIATION DOSE: 29.22 CTDI (mGy) [place] [facility] [place]. . TECHNIQUE: CT of the head without contrast. Using automated exposure control and adjustment of the mA and/or kV according to patient size, radiation dose was kept as low as reasonably achievable to ob tain optimal diagnostic quality images. DICOM format image data is available electronically for revi ew and comparison. FINDINGS: Study is motion degraded. Cerebrum: The ventricles are normal for age. No evidence of midline shift, mass lesion, hemorrhage or acute infarction. No extraaxial fluid collections are seen. Atrophy and chronic white matter mancini ges are again noted. Posterior Fossa: The cerebellum and brainstem are intact. The 4th ventricle is midline. The cerebe llopontine angle is unremarkable. Extracranial: The visualized portion of the orbits is intact. Skull: The calvaria is intact. No evidence of skull fracture. CONCLUSION: Motion degraded study. No acute abnormality demonstrated. . Electronically signed by: Jace Pompa MD 01/22/2018 12:07 AM EDT
[2018-01-22 00:23] LABS: Activated Partial Thrombo Time 27.1 sec (24.3-30.1); INR 1.1 Ratio; Prothrombin Time 11.4 sec (9.8-11.6)
[2018-01-22] MEDS: Sod Chloride 0.9% Inj 1,000 ML IV.CONT SCH ×5 (00:41→17:44)
[2018-01-22 00:48] LABS: Alanine Aminotransferase 16 U/L (10-53); Albumin 3.2 g/dL (3.4-5.0); Alkaline Phosphatase 220 U/L (45-117); Anion Gap 11 meq/L (5-15); Aspartate Aminotransferase 25 U/L (15-37); Blood Urea Nitrogen 8 mg/dL (7-18); Calcium 7.4 mg/dL (8.5-10.1); Carbon Dioxide 24.9 meq/L (21.0-32.0); Chloride 102 meq/L (98-107); Creatine Kinase 331 U/L (26-192); Glomerular Filtration Rate 66 mL/min (>89); Glucose,Random 106 mg/dL (74-106); Potassium 3.5 meq/L (3.5-5.1); Sodium 138 meq/L (136-145); Total Protein 6.9 g/dL (6.4-8.2)
[2018-01-22 01:04] LABS: CKMB Percent 1.6 % (0.0-4.0); Creatine Kinase MB 5.4 ng/mL (0.5-3.6)
[2018-01-22 01:42] LABS: Bacteria,Urine Rare /hpf; Bilirubin,Urine Negative (Negative); Clarity,Urine Hazy (Clear); Color,Urine Yellow (Yellw/Straw); Glucose,Urine (UA) Negative (Negative); Hyaline Casts,Urine 1 /lpf (0-3); Leukocyte Esterase,Urine Trace (Negative); Mucus,Urine Few /lpf (Occasional); Nitrite,Urine Negative (Negative); Squamous Epithelial Cell,Urine <1 /hpf (0-5)
[2018-01-22 01:45] LABS: Amphetamine Screen,Urine Neg (Neg); Barbiturate Screen,Urine Neg (Neg); Cannabinoid Screen,Urine Neg (Neg); Cocaine Screen,Urine Neg (Neg)
[2018-01-22 01:46] LABS: Opiate Screen,Urine Pos (Neg)
[2018-01-22] MEDS ORDERED: Bisacodyl 10 MG Supp RECTAL PRN (02:31)
--- NOTE | 2018-01-22 04:56 | P.HPIM ---
History of Present Illness Primary Care Physician: Bibi Vilchis MD History of Present Illness: 77-year-old female with history of hypothyroidism, insomnia, chronic pain who presents with altered mental status. Patient appears to have internal stimuli. Family reports that she has had about 36 tablets of Unisom over the past week. Patient denies any pain, however is very distracted and with disjointed speech. Family not at bedside during exam, and history is obtained from chart review. Review of Systems All other systems reviewed negative except as stated in HPI [facility] - History History Provided By: Patient - Medical History Medical History: Medical History (Last Updated 01/22/18 @ 04:51 by Juventino Kennedy MD) COPD (chronic obstructive pulmonary disease) Chronic back pain History of hysterectomy Hypertension Hypothyroidism Seizure disorder - Surgical History Surgical History: Surgical History (Last Updated 01/22/18 @ 04:51 by Juventino Kennedy MD) History of cholecystectomy - Family History Family History: Family History (Last Updated 01/22/18 @ 04:52 by Juventino Kennedy MD) Other Family history unobtainable - Tobacco History Second Hand Smoke Exposure: No Smoking Status: Never smoker - Alcohol History How Often Do You Have a Drink Containing Alcohol: Unable to Obtain - Substance Use History Substance History: No History of Abuse - Travel History Recent Travel in the [place] Within the Last 8 Weeks: No Recent Travel Out of the Country Within the Last 8 Weeks: No - Immunization History Tetanus Immunization: Unsure Medications and Allergies Active Medications: Active Medications Al Hydroxide/Mg Hydroxide (Milk Of Magnesia Liq) 30 ml PO Q12H PRN PRN Reason: Mild Constipation Bisacodyl (Dulcolax Supp) 10 mg RECTAL DAILY PRN PRN Reason: SEVERE CONSITIPATION Sodium Chloride (Ns Inj) 1,000 mls @ 125 mls/hr IV.CONT .Q8H JOSEPH Last Infusion: 01/22/18 04:03 Dose: 100 mls/hr Ceftriaxone Sodium 1,000 mg/ (Sodium Chloride) 100 mls @ 200 mls/hr IV.SIG Q24H JOSEPH Last Admin: 01/22/18 03:15 Dose: 200 mls/hr Sodium Chloride (Ns Inj) 1,000 mls @ 100 mls/hr IV.CONT .Q10H JOSEPH Lactulose (Lactulose Liq) 30 ml PO DAILY PRN PRN Reason: SEVERE CONSITIPATION Sennosides (Senokot) 17.2 mg PO Q12H PRN PRN Reason: Moderate Constipation Sodium Chloride (Ns Flush) 2 ml IV.FLUSH PRN PRN PRN Reason: FLUSH AFTER USING IV ACCESS Allergies Allergy/AdvReac Type Severity Reaction Status Date / Time pentazocine Allergy Severe Hallucinati Verified 01/22/18 04:04 ons promethazine Allergy Severe Restlessnes Verified 01/22/18 04:04 s Home Medications Medication Instructions Recorded Confirmed Type diphenhydramine HCl [Unisom 50 mg PO Q4-6H PRN 01/22/18 01/22/18 History Sleepgels] levothyroxine 50 mcg PO DAILY 01/22/18 01/22/18 History mirtazapine 15 mg PO HS 01/22/18 01/22/18 History morphine 30 mg PO TID 01/22/18 01/22/18 History paroxetine HCl 40 mg PO DAILY 01/22/18 01/22/18 History temazepam 1 tab PO DAILY 01/22/18 01/22/18 History Exam Vital signs: Vital Signs 01/21/18 23:13 01/21/18 23:40 01/22/18 02:57 Temperature 98 F 98.3 F Pulse Rate 114 H 102 H Respiratory Rate 18 18 Blood Pressure 134/74 Pulse Oximetry 98 98 01/22/18 02:59 Temperature Pulse Rate Respiratory Rate 18 Blood Pressure 137/83 Pulse Oximetry 98 Intake & Output 01/21/18 01/21/18 01/22/18 06:59 18:59 06:59 Weight 45.359 kg Narrative: GENERAL: Patient lying in bed. Appears comfortable. Disoriented. SKIN: Warm and dry. HEAD: Atraumatic. Normocephalic. EYES: Pupils equal and round. No scleral icterus. No injection or drainage. ENT: No nasal bleeding or discharge. Mucous membranes pink and moist. NECK: Trachea midline. No JVD. CARDIOVASCULAR: Regular rate and rhythm. RESPIRATORY: No accessory muscle use. Clear to auscultation. Breath sounds equal bilaterally. GASTROINTESTINAL: Abdomen soft, non-tender, nondistended. Hepatic and splenic margins not palpable. MUSCULOSKELETAL: Extremities without clubbing, cyanosis, or edema. No obvious deformities. NEUROLOGICAL: Awake. No obvious cranial nerve deficits, with the exception of patient refuses to open her eyes. Patient with bilateral upper lower extremity dyskinesia PSYCHIATRIC: Appropriate mood and affect; insight and judgment normal. Results - Labs CBC & Chem 7: 01/21/18 23:59 01/21/18 23:59 Labs: Short CBC 01/21/18 Range/Units 23:59 WBC 13.1 H (4.0-11.0) th/mm3 Hgb 12.2 (11.6-15.3) gm/dL Hct 36.7 (35.0-46.0) % Plt Count 209 (150-450) th/mm3 BMP 01/21/18 23:59 Sodium 138 Potassium 3.5 Chloride 102 Carbon Dioxide 24.9 BUN 8 Creatinine 0.84 Calcium 7.4 L* Cardiac Enzymes 01/21/18 Range/Units 23:59 Total Creatine Kinase 331 H (26-192) U/L CK-MB (CK-2) 5.4 H (0.5-3.6) ng/mL Troponin I Less than 0.02 L (0.02-0.05) ng/mL Liver Function 01/21/18 Range/Units 23:59 Total Bilirubin 0.7 (0.2-1.0) mg/dL AST 25 (15-37) U/L ALT 16 (10-53) U/L Alkaline Phosphatase 220 H (45-117) U/L Albumin 3.2 L (3.4-5.0) g/dL Urine 01/22/18 Range/Units 01:20 Urine Color Yellow (Yellw/Straw) Urine Clarity Hazy H (Clear) Urine pH 7.0 (5.0-8.5) Ur Specific [place] 1.010 (1.002-1.035) Urine Protein Negative (Neg-Trace) mg/dL Urine Glucose (UA) Negative (Negative) mg/dL - Imaging Impressions Chest X-Ray 01/21/18 23:26 CONCLUSION: No acute cardiopulmonary disease demonstrated. Head CT 01/21/18 23:26 CONCLUSION: Motion degraded study. No acute abnormality demonstrated. . Caprini VTE Risk Assessment Caprini VTE Risk Assessment: Moderate/High Risk (score >= 2) Caprini Risk Assessment Model: Point Value = 1 Point Value = 2 Point Value = 3 Point Value = 5 Age 41-60 Minor surgery BMI > 25 kg/m2 Swollen legs Varicose veins or History of unexplained or recurrent spontaneous Oral contraceptives or hormone replacement Sepsis (< 1 month) Serious lung disease, including pneumonia (< 1 month) Abnormal pulmonary function Acute myocardial infarction Congestive heart failure (< 1 month) History of inflammatory bowel disease Medical patient at bed rest Age 61-74 Arthroscopic surgery Major open surgery (> 45 min) Laparoscopic surgery (> 45 min) Malignancy Confined to bed (> 72 hours) Immobilizing plaster cast Central venous access Age >= 75 History of VTE Family history of VTE Factor V Leiden Prothrombin 42912P Lupus anticoagulant Anticardiolipin antibodies Elevated serum homocysteine Heparin-induced thrombocytopenia Other congenital or acquired thrombophilia Stroke (< 1 month) Elective arthroplasty Hip, pelvis, or leg fracture Acute spinal cord injury (< 1 month) Prophylaxis Regimen: Total Risk Factor Score Risk Level Prophylaxis Regimen 0-1 Low Early ambulation 2 Moderate Order ONE of the following: *Sequential Compression Device (SCD) *Heparin 5000 units SQ BID 3-4 Higher Order ONE of the following medications: *Heparin 5000 units SQ TID *Enoxaparin/Lovenox 40 mg SQ daily (WT < 150 kg, CrCl > 30 mL/min) *Enoxaparin/Lovenox 30 mg SQ daily (WT < 150 kg, CrCl > 10-29 mL/min) *Enoxaparin/Lovenox 30 mg SQ BID (WT < 150 kg, CrCl > 30 mL/min) AND/OR *Sequential Compression Device (SCD) 5 or more Highest Order ONE of the following medications: *Heparin 5000 units SQ TID (Preferred with Epidurals) *Enoxaparin/Lovenox 40 mg SQ daily (WT < 150 kg, CrCl > 30 mL/min) *Enoxaparin/Lovenox 30 mg SQ daily (WT < 150 kg, CrCl > 10-29 mL/min) *Enoxaparin/Lovenox 30 mg SQ BID (WT < 150 kg, CrCl > 30 mL/min) AND *Sequential Compression Device (SCD) Assessment and Plan - Plan //Suspected overdose //Toxic encephalopathy = Patient reportedly overdosed on 36 tablets of Unisom over the past week Placed on normal saline at 100 mL/h. Avoid sedating medications Order EEG. //Seizure disorder. Will check EEG. //Hypothyroidism. On replacement. Will check TSH. //COPD. Duo nebs as needed. //Chronic back pain. Patient is on high-dose narcotic pain meds at home. Hold narcotic meds for now. Discussed Condition With: Patient, nurse, ED physician.
--- NOTE | 2018-01-22 09:01 | P.CONNEU ---
History of Present Illness Service: Neurology Primary Care Provider: Bibi Vilchis MD Family Provider: Bibi Vilchis MD Chief Complaint: Involuntary movements History of Present Illness: 77-year-old female brought in by [facility] for apparent overdose of Unisom. Neurology consult for involuntary movements. She seen in 2016 felt of a possible drug-induced, metabolic encephalopathy from opiates and benzos. There is also some history of seizures. EEG done at that time was negative for any active seizure activity. CT brain scan in the ER was negative for any acute lesion. Patient is a very poor historian medical chart reviewed. Review of Systems All other systems reviewed negative except as stated in HPI [facility] - History History Provided By: Patient - Medical History Medical History: Medical History (Last Updated 01/22/18 @ 04:51 by Juventino Kennedy MD) COPD (chronic obstructive pulmonary disease) Chronic back pain History of hysterectomy Hypertension Hypothyroidism Seizure disorder - Surgical History Surgical History: Surgical History (Last Updated 01/22/18 @ 04:51 by Juventino Kennedy MD) History of cholecystectomy - Family History Family History: Family History (Last Updated 01/22/18 @ 04:52 by Juventino Kennedy MD) Other Family history unobtainable - Tobacco History Second Hand Smoke Exposure: No Smoking Status: Never smoker - Alcohol History How Often Do You Have a Drink Containing Alcohol: Unable to Obtain - Substance Use History Substance History: No History of Abuse - Travel History Recent Travel in the USA Within the Last 8 Weeks: No Recent Travel Out of the Country Within the Last 8 Weeks: No - Immunization History Tetanus Immunization: Unsure Medications and Allergies Active Medications: Active Medications Al Hydroxide/Mg Hydroxide (Milk Of Magnamarjit Liq) 30 ml PO Q12H PRN PRN Reason: Mild Constipation Albuterol (Duoneb Neb (Prn)) 1 ampul NEB Q2HR NEB PRN PRN Reason: SHORTNESS OF BREATH Bisacodyl (Dulcolax Supp) 10 mg RECTAL DAILY PRN PRN Reason: SEVERE CONSITIPATION Sodium Chloride (Ns Inj) 1,000 mls @ 125 mls/hr IV.CONT .Q8H [facility] Last Infusion: 01/22/18 07:35 Dose: 125 mls/hr Ceftriaxone Sodium 1,000 mg/ (Sodium Chloride) 100 mls @ 200 mls/hr IV.SIG Q24H [facility] Last Admin: 01/22/18 03:15 Dose: 200 mls/hr Sodium Chloride (Ns Inj) 1,000 mls @ 100 mls/hr IV.CONT .Q10H [facility] Last Admin: 01/22/18 05:02 Dose: Not Given Lactulose (Lactulose Liq) 30 ml PO DAILY PRN PRN Reason: SEVERE CONSITIPATION Sennosides (Senokot) 17.2 mg PO Q12H PRN PRN Reason: Moderate Constipation Sodium Chloride (Ns Flush) 2 ml IV.FLUSH PRN PRN PRN Reason: FLUSH AFTER USING IV ACCESS Allergies Allergy/AdvReac Type Severity Reaction Status Date / Time pentazocine Allergy Severe Hallucinati Verified 01/22/18 04:04 ons promethazine Allergy Severe Restlessnes Verified 01/22/18 04:04 s Home Medications Medication Instructions Recorded Confirmed Type diphenhydramine HCl [Unisom 50 mg PO Q4-6H PRN 01/22/18 01/22/18 History Sleepgels] levothyroxine 50 mcg PO DAILY 01/22/18 01/22/18 History mirtazapine 15 mg PO HS 01/22/18 01/22/18 History morphine 30 mg PO TID 01/22/18 01/22/18 History paroxetine HCl 40 mg PO DAILY 01/22/18 01/22/18 History temazepam 1 tab PO DAILY 01/22/18 01/22/18 History Exam Vital signs: Vital Signs 01/21/18 23:13 01/21/18 23:40 01/22/18 02:57 Temperature 98 F 98.3 F Pulse Rate 114 H 102 H Respiratory Rate 18 18 Blood Pressure 134/74 Pulse Oximetry 98 98 01/22/18 02:59 01/22/18 06:34 01/22/18 07:37 Temperature 99.7 F H Pulse Rate 104 H 98 H Respiratory Rate 18 19 15 Blood Pressure 137/83 141/65 H 122/76 Pulse Oximetry 98 96 Intake & Output 01/21/18 01/22/18 01/22/18 18:59 06:59 18:59 Intake Total Balance Weight 45.359 kg Intake: IV Narrative: GENERAL: Patient lying in bed. Appears comfortable. Disoriented. SKIN: Warm and dry. HEAD: Atraumatic. Normocephalic. EYES: Pupils equal and round. No scleral icterus. No injection or drainage. ENT: No nasal bleeding or discharge. Mucous membranes pink and moist. NECK: Trachea midline. No JVD. CARDIOVASCULAR: Regular rate and rhythm. RESPIRATORY: No accessory muscle use. Clear to auscultation. GASTROINTESTINAL: Abdomen soft, non-tender, nondistended. MUSCULOSKELETAL: Extremities without clubbing, cyanosis, or edema. No obvious deformities. NEUROLOGICAL: Awake alert but confused articulate speech not following not oriented, resist pupillary exam, oral buccal, oral lingual dyskinesias, no involuntary movements are limbs localized all 4 limbs no tremors PSYCHIATRIC: Confused - Constitutional no acute distress - Routine HEENT Exam Head: Present: normocephalic Results - Labs CBC & Chem 7: 01/21/18 23:59 01/21/18 23:59 Labs: Laboratory Results - last 24 hr 01/21/18 01/21/18 01/21/18 23:55 23:59 23:59 WBC 13.1 H RBC 4.03 Hgb 12.2 Hct 36.7 MCV 91.1 MCH 30.2 MCHC 33.1 RDW 14.3 Plt Count 209 MPV 9.6 Neut % (Auto) 89.4 H Lymph % (Auto) 3.8 L [place] % (Auto) 6.7 Eos % (Auto) 0.0 Baso % (Auto) 0.1 Neut # (Auto) 11.7 H Lymph # (Auto) 0.5 L [place] # (Auto) 0.9 Eos # (Auto) 0.0 Baso # (Auto) 0.0 WBC Differential . Differential Comment Auto diff final PT 11.4 INR 1.1 APTT 27.1 Sodium Potassium Chloride Carbon Dioxide Anion Gap BUN Creatinine Estimated GFR Random Glucose Calcium Prot Corrected Calcium Total Bilirubin AST ALT Alkaline Phosphatase Ammonia 31 Total Creatine Kinase CK-MB (CK-2) CK-MB (CK-2) % Troponin I Total Protein Albumin TSH Urine Color Urine Clarity Urine pH Ur Specific [place] Urine Protein Urine Glucose (UA) Urine Ketones Urine Occult Blood Urine Nitrate Urine Bilirubin Urine Urobilinogen Ur Leukocyte Esterase Urine RBC Urine WBC Ur Squamous Epith Cells Urine Bacteria Hyaline Casts Urine Mucus Micro UA Comment Ur Microscopic Review Urine Culture Comments Salicylates Urine Opiates Screen Acetaminophen Ur Barbiturates Screen Ur Amphetamines Screen U Benzodiazepines Scrn Urine Cocaine Screen U Cannabinoids Screen Serum Alcohol 01/21/18 01/21/18 01/21/18 23:59 23:59 23:59 WBC RBC Hgb Hct MCV MCH MCHC RDW Plt Count MPV Neut % (Auto) Lymph % (Auto) [place] % (Auto) Eos % (Auto) Baso % (Auto) Neut # (Auto) Lymph # (Auto) [place] # (Auto) Eos # (Auto) Baso # (Auto) WBC Differential Differential Comment PT INR APTT Sodium 138 Potassium 3.5 Chloride 102 Carbon Dioxide 24.9 Anion Gap 11 BUN 8 Creatinine 0.84 Estimated GFR 66 L Random Glucose 106 Calcium 7.4 L* Prot Corrected Calcium 7.5 L Total Bilirubin 0.7 AST 25 ALT 16 Alkaline Phosphatase 220 H Ammonia Total Creatine Kinase 331 H CK-MB (CK-2) 5.4 H CK-MB (CK-2) % 1.6 Troponin I Less than 0.02 L Total Protein 6.9 Albumin 3.2 L TSH 1.040 1.030 Urine Color Urine Clarity Urine pH Ur Specific [place] Urine Protein Urine Glucose (UA) Urine Ketones Urine Occult Blood Urine Nitrate Urine Bilirubin Urine Urobilinogen Ur Leukocyte Esterase Urine RBC Urine WBC Ur Squamous Epith Cells Urine Bacteria Hyaline Casts Urine Mucus Micro UA Comment Ur Microscopic Review Urine Culture Comments Salicylates Less than 1.7 L Urine Opiates Screen Acetaminophen Less than 2.0 L Ur Barbiturates Screen Ur Amphetamines Screen U Benzodiazepines Scrn Urine Cocaine Screen U Cannabinoids Screen Serum Alcohol Less than 3 01/22/18 01/22/18 01:20 01:20 WBC RBC Hgb Hct MCV MCH MCHC RDW Plt Count MPV Neut % (Auto) Lymph % (Auto) [place] % (Auto) Eos % (Auto) Baso % (Auto) Neut # (Auto) Lymph # (Auto) [place] # (Auto) Eos # (Auto) Baso # (Auto) WBC Differential Differential Comment PT INR APTT Sodium Potassium Chloride Carbon Dioxide Anion Gap BUN Creatinine Estimated GFR Random Glucose Calcium Prot Corrected Calcium Total Bilirubin AST ALT Alkaline Phosphatase Ammonia Total Creatine Kinase CK-MB (CK-2) CK-MB (CK-2) % Troponin I Total Protein Albumin TSH Urine Color Yellow Urine Clarity Hazy H Urine pH 7.0 Ur Specific [place] 1.010 Urine Protein Negative Urine Glucose (UA) Negative Urine Ketones Negative Urine Occult Blood Negative Urine Nitrate Negative Urine Bilirubin Negative Urine Urobilinogen 2.0 H Ur Leukocyte Esterase Trace H Urine RBC Less than 1 Urine WBC 19 H Ur Squamous Epith Cells <1 Urine Bacteria Rare H Hyaline Casts 1 Urine Mucus Few H Micro UA Comment Cath-culture ind Ur Microscopic Review Not Reportable Urine Culture Comments Cath-cult indicated Salicylates Urine Opiates Screen Pos H Acetaminophen Ur Barbiturates Screen Neg Ur Amphetamines Screen Neg U Benzodiazepines Scrn Neg Urine Cocaine Screen Neg U Cannabinoids Screen Neg Serum Alcohol - Imaging Impressions Chest X-Ray 01/21/18 23:26 CONCLUSION: No acute cardiopulmonary disease demonstrated. Head CT 01/21/18 23:26 CONCLUSION: Motion degraded study. No acute abnormality demonstrated. . Review/Management - Diagnosis (1) Acute encephalopathy Code(s): G93.40 - Encephalopathy, unspecified Status: Acute Current Visit: Yes (2) Altered mental status Code(s): R41.82 - Altered mental status, unspecified Status: Acute Current Visit: Yes (3) Acute drug overdose Code(s): T50.901A - Poisoning by unspecified drugs, medicaments and biological substances, accidental (unintentional), initial encounter Status: Acute Current Visit: Yes - Review/Management Plan: Oral buccal dyskinesias, encephalopathy likely related to excessive medication intake and thus likely a drug-induced encephalopathy UA essentially negative. Mild leukocytosis Recommendations EEG Hydration Telemetry monitoring Corrected calcium Check an ammonia level, ESR CRP and B12 We will consider Cogentin in the future if needed Follow exam (2) Altered mental status Qualifiers: Altered mental status type: disorientation Qualified Code(s): R41.0 - Disorientation, unspecified (3) Acute drug overdose Qualifiers: Encounter type: initial encounter Injury intent: undetermined intent Qualified Code(s): T50.904A - Poisoning by unspecified drugs, medicaments and biological substances, undetermined, initial encounter
--- NOTE | 2018-01-22 09:57 | P.PNIM ---
Subjective Interval history: 77-year-old female with history of hypothyroidism, insomnia, chronic pain who presents with altered mental status. Patient appears to have internal stimuli. Family reports that she has had about 36 tablets of Unisom over the past week. Patient denies any pain, however is very distracted and with disjointed speech. Family not at bedside during exam, and history is obtained from chart review. 01-22 PATIENT REMAINS VERY CONFUSED HAVING LIP SMACKING MOVEMENTS NOT ABLE TO GIVE GOOD HISTORY NOT SURE IF THIS IS BASELINE OR DUE TO UNISOM FARIHA RN AND PT AND PSYCHIATRY AM LAB Physical Exam Vital signs: Vital Signs 01/21/18 23:13 01/21/18 23:40 01/22/18 02:57 Temperature 98 F 98.3 F Pulse Rate 114 H 102 H Respiratory Rate 18 18 Blood Pressure 134/74 Pulse Oximetry 98 98 01/22/18 02:59 01/22/18 06:34 01/22/18 07:37 Temperature 99.7 F H Pulse Rate 104 H 98 H Respiratory Rate 18 19 15 Blood Pressure 137/83 141/65 H 122/76 Pulse Oximetry 98 96 Intake & Output 01/21/18 01/22/18 01/22/18 18:59 06:59 18:59 Intake Total 101 / 101 Balance 101 / 101 Weight 45.359 kg Intake: IV / 101 Narrative: GENERAL: Patient lying in bed. Appears comfortable. Disoriented.--VERY CONFUSED-LIP SMACKING BEHAVIORS--APPEARS MUCH OLDER THAN STATED AGE SKIN: Warm and dry. HEAD: Atraumatic. Normocephalic. EYES: Pupils equal and round. No scleral icterus. No injection or drainage. ENT: No nasal bleeding or discharge. Mucous membranes pink and moist. NECK: Trachea midline. No JVD. CARDIOVASCULAR: Regular rate and rhythm. S1, S2 NO S3 OR S4 RESPIRATORY: No accessory muscle use. Clear to auscultation. Breath sounds equal bilaterally. GASTROINTESTINAL: Abdomen soft, non-tender, nondistended. Hepatic and splenic margins not palpable. MUSCULOSKELETAL: Extremities without clubbing, cyanosis, or edema. No obvious deformities. NEUROLOGICAL: Awake. No obvious cranial nerve deficits, with the exception of patient refuses to open her eyes. Patient with bilateral upper lower extremity dyskinesia PSYCHIATRIC: INAppropriate mood and affect; insight and judgment ANnormal. Results - Labs CBC & Chem 7: 01/21/18 23:59 01/21/18 23:59 Laboratory Results - last 24 hr 01/21/18 01/21/18 01/21/18 23:55 23:59 23:59 WBC 13.1 H RBC 4.03 Hgb 12.2 Hct 36.7 MCV 91.1 MCH 30.2 MCHC 33.1 RDW 14.3 Plt Count 209 MPV 9.6 Neut % (Auto) 89.4 H Lymph % (Auto) 3.8 L [place] % (Auto) 6.7 Eos % (Auto) 0.0 Baso % (Auto) 0.1 Neut # (Auto) 11.7 H Lymph # (Auto) 0.5 L [place] # (Auto) 0.9 Eos # (Auto) 0.0 Baso # (Auto) 0.0 WBC Differential . Differential Comment Auto diff final PT 11.4 INR 1.1 APTT 27.1 Sodium Potassium Chloride Carbon Dioxide Anion Gap BUN Creatinine Estimated GFR Random Glucose Calcium Prot Corrected Calcium Total Bilirubin AST ALT Alkaline Phosphatase Ammonia 31 Total Creatine Kinase CK-MB (CK-2) CK-MB (CK-2) % Troponin I Total Protein Albumin TSH Urine Color Urine Clarity Urine pH Ur Specific [place] Urine Protein Urine Glucose (UA) Urine Ketones Urine Occult Blood Urine Nitrate Urine Bilirubin Urine Urobilinogen Ur Leukocyte Esterase Urine RBC Urine WBC Ur Squamous Epith Cells Urine Bacteria Hyaline Casts Urine Mucus Micro UA Comment Ur Microscopic Review Urine Culture Comments Salicylates Urine Opiates Screen Acetaminophen Ur Barbiturates Screen Ur Amphetamines Screen U Benzodiazepines Scrn Urine Cocaine Screen U Cannabinoids Screen Serum Alcohol 01/21/18 01/21/18 01/21/18 23:59 23:59 23:59 WBC RBC Hgb Hct MCV MCH MCHC RDW Plt Count MPV Neut % (Auto) Lymph % (Auto) [place] % (Auto) Eos % (Auto) Baso % (Auto) Neut # (Auto) Lymph # (Auto) [place] # (Auto) Eos # (Auto) Baso # (Auto) WBC Differential Differential Comment PT INR APTT Sodium 138 Potassium 3.5 Chloride 102 Carbon Dioxide 24.9 Anion Gap 11 BUN 8 Creatinine 0.84 Estimated GFR 66 L Random Glucose 106 Calcium 7.4 L* Prot Corrected Calcium 7.5 L Total Bilirubin 0.7 AST 25 ALT 16 Alkaline Phosphatase 220 H Ammonia Total Creatine Kinase 331 H CK-MB (CK-2) 5.4 H CK-MB (CK-2) % 1.6 Troponin I Less than 0.02 L Total Protein 6.9 Albumin 3.2 L TSH 1.040 1.030 Urine Color Urine Clarity Urine pH Ur Specific [place] Urine Protein Urine Glucose (UA) Urine Ketones Urine Occult Blood Urine Nitrate Urine Bilirubin Urine Urobilinogen Ur Leukocyte Esterase Urine RBC Urine WBC Ur Squamous Epith Cells Urine Bacteria Hyaline Casts Urine Mucus Micro UA Comment Ur Microscopic Review Urine Culture Comments Salicylates Less than 1.7 L Urine Opiates Screen Acetaminophen Less than 2.0 L Ur Barbiturates Screen Ur Amphetamines Screen U Benzodiazepines Scrn Urine Cocaine Screen U Cannabinoids Screen Serum Alcohol Less than 3 01/22/18 01/22/18 01:20 01:20 WBC RBC Hgb Hct MCV MCH MCHC RDW Plt Count MPV Neut % (Auto) Lymph % (Auto) [place] % (Auto) Eos % (Auto) Baso % (Auto) Neut # (Auto) Lymph # (Auto) [place] # (Auto) Eos # (Auto) Baso # (Auto) WBC Differential Differential Comment PT INR APTT Sodium Potassium Chloride Carbon Dioxide Anion Gap BUN Creatinine Estimated GFR Random Glucose Calcium Prot Corrected Calcium Total Bilirubin AST ALT Alkaline Phosphatase Ammonia Total Creatine Kinase CK-MB (CK-2) CK-MB (CK-2) % Troponin I Total Protein Albumin TSH Urine Color Yellow Urine Clarity Hazy H Urine pH 7.0 Ur Specific [place] 1.010 Urine Protein Negative Urine Glucose (UA) Negative Urine Ketones Negative Urine Occult Blood Negative Urine Nitrate Negative Urine Bilirubin Negative Urine Urobilinogen 2.0 H Ur Leukocyte Esterase Trace H Urine RBC Less than 1 Urine WBC 19 H Ur Squamous Epith Cells <1 Urine Bacteria Rare H Hyaline Casts 1 Urine Mucus Few H Micro UA Comment Cath-culture ind Ur Microscopic Review Not Reportable Urine Culture Comments Cath-cult indicated Salicylates Urine Opiates Screen Pos H Acetaminophen Ur Barbiturates Screen Neg Ur Amphetamines Screen Neg U Benzodiazepines Scrn Neg Urine Cocaine Screen Neg U Cannabinoids Screen Neg Serum Alcohol - Imaging Impressions Chest X-Ray 01/21/18 23:26 CONCLUSION: No acute cardiopulmonary disease demonstrated. Head CT 01/21/18 23:26 CONCLUSION: Motion degraded study. No acute abnormality demonstrated. . Assessment and Plan - Plan Suspected overdose Toxic encephalopathy = Patient reportedly overdosed on 36 tablets of Unisom over the past week Placed on normal saline at 100 mL/h. Avoid sedating medications Order EEG.--WAS REFUSED BY PATINENT Seizure disorder. Will check EEG. Hypothyroidism. On replacement. Will check TSH. COPD. Duo nebs as needed. Chronic back pain. Patient is on high-dose narcotic pain meds at home. Hold narcotic meds for now. CONSULT PSYCHIATRY PT AND OT ST MAY NEED SNF VS INPATIENT PSYCHIATRY AM LABS Code Status: FULL CODE Discussed Condition With: RN AND PT AND PSYCHIATRY Discharge Planning: SNF VS INPATIENT PSYCHIATRY
[2018-01-22 11:30] LABS: C-Reactive Protein 5.57 mg/dL (0.00-0.30)
[2018-01-22] MEDS: Levothyroxine 50 MCG Tablet PO SCH (13:24)
--- NOTE | 2018-01-22 14:59 | P.CONPSY ---
Provisional Diagnosis Admission Date: January 22, 2018 02:09 Pike I.: R/O benzo withdrawal, R/O MDD History of Present Illness Service: ER Primary Care Provider: Bibi Vilchis MD Family Provider: Bibi Vilchis MD Chief Complaint: Involuntary movements History of Present Illness: The patient is a 77-year-old woman, domiciled with her son and in [facility], retired, with no previous psychiatric history, no previous suicide attempts, no prepsychotic hospitalizations, who has been taking medications for sleep, brought in by [facility] for apparent overdose of Unisom. I n 2016 felt of a possible drug-induced, metabolic encephalopathy from opiates and benzos. There is also some history of seizures. EEG done at that time was negative for any active seizure activity. CT brain scan in the ER was negative for any acute lesion. Patient was consulted to psychiatry to address potential suicidal overdose. However, the patient is known cooperative, very disorganized , having continuous involuntary movement of the periorbital region. Unable to provide any significant information for the psychiatric assessment at this moment. However, I spoke with her son Sami Stephenson, , clarifies that the patient does not have any psychiatric history. He does not think that the patient tried to commit suicide. Even though he states that the patient has been coping poorly with the of her youngest son a couple years ago, but he does not think that she is depressed enough to commit suicide. He is very is that the patient was on benzodiazepines for insomnia for a long time, her PCP discontinue this medication and the patient could not sleep for a couple weeks and then she "overtook" the [id number] medications. PPHx: The patient does not have any previous psychiatric history. No previous suicide attempts, no previous psychiatric hospitalizations Substance Hx: Not substance or alcohol use history Family Hx: No family psychiatric Social: The patient was born and raised in [place], she lives in [facility] [place] with her and son, she is retired, her highest level of education is high school [employer] - History History Provided By: Patient - Medical History Medical History: Medical History (Last Reviewed 01/22/18 @ 14:27 by Mario Muir) COPD (chronic obstructive pulmonary disease) Chronic back pain History of hysterectomy Hypertension Hypothyroidism Seizure disorder - Surgical History Surgical History: Surgical History (Last Reviewed 01/22/18 @ 14:27 by Mario Muir) History of cholecystectomy - Family History Family History: Family History (Last Updated 01/22/18 @ 04:52 by Juventino Kennedy MD) Other Family history unobtainable - Tobacco History Second Hand Smoke Exposure: No Smoking Status: Never smoker - Alcohol History How Often Do You Have a Drink Containing Alcohol: Unable to Obtain - Substance Use History Substance History: No History of Abuse - Travel History Recent Travel in the [place] Within the Last 8 Weeks: No Recent Travel Out of the Country Within the Last 8 Weeks: No - Immunization History Tetanus Immunization: Unsure Medications and Allergies Active Medications: Active Medications Al Hydroxide/Mg Hydroxide (Milk Of Magnesia Liq) 30 ml PO Q12H PRN PRN Reason: Mild Constipation Albuterol (Duoneb Neb (Prn)) 1 ampul NEB Q2HR NEB PRN PRN Reason: SHORTNESS OF BREATH Bisacodyl (Dulcolax Supp) 10 mg RECTAL DAILY PRN PRN Reason: SEVERE CONSITIPATION Sodium Chloride (Ns Inj) 1,000 mls @ 125 mls/hr IV.CONT .Q8H [facility] Last Admin: 01/22/18 11:13 Dose: 125 mls/hr Ceftriaxone Sodium 1,000 mg/ (Sodium Chloride) 100 mls @ 200 mls/hr IV.SIG Q24H [facility] Last Infusion: 01/22/18 04:00 Dose: Infused Sodium Chloride (Ns Inj) 1,000 mls @ 100 mls/hr IV.CONT .Q10H [facility] Last Admin: 01/22/18 05:02 Dose: Not Given Lactulose (Lactulose Liq) 30 ml PO DAILY PRN PRN Reason: SEVERE CONSITIPATION Levothyroxine Sodium (Synthroid) 50 mcg PO DAILY@0600 [facility] Last Admin: 01/22/18 13:24 Dose: 50 mcg Sennosides (Senokot) 17.2 mg PO Q12H PRN PRN Reason: Moderate Constipation Sodium Chloride (Ns Flush) 2 ml IV.FLUSH PRN PRN PRN Reason: FLUSH AFTER USING IV ACCESS Allergies Allergy/AdvReac Type Severity Reaction Status Date / Time pentazocine Allergy Severe Hallucinati Verified 01/22/18 04:04 ons promethazine Allergy Severe Restlessnes Verified 01/22/18 04:04 s Home Medications Medication Instructions Recorded Confirmed Type diphenhydramine HCl [Unisom 50 mg PO Q4-6H PRN 01/22/18 01/22/18 History Sleepgels] levothyroxine 50 mcg PO DAILY 01/22/18 01/22/18 History mirtazapine 15 mg PO HS 01/22/18 01/22/18 History morphine 30 mg PO TID 01/22/18 01/22/18 History paroxetine HCl 40 mg PO DAILY 01/22/18 01/22/18 History temazepam 1 tab PO DAILY 01/22/18 01/22/18 History Exam Vital signs: Vital Signs 01/21/18 23:13 01/21/18 23:40 01/22/18 02:57 Temperature 98 F 98.3 F Pulse Rate 114 H 102 H Respiratory Rate 18 18 Blood Pressure 134/74 Pulse Oximetry 98 98 01/22/18 02:59 01/22/18 06:34 01/22/18 07:37 Temperature 99.7 F H Pulse Rate 104 H 98 H Respiratory Rate 18 19 15 Blood Pressure 137/83 141/65 H 122/76 Pulse Oximetry 98 96 01/22/18 11:40 Temperature 98.7 F Pulse Rate 113 H Respiratory Rate Blood Pressure 132/76 Pulse Oximetry 94 L Intake & Output 01/21/18 01/22/18 01/22/18 18:59 06:59 18:59 Intake Total 201 / 201 1000 / 1000 Balance 201 / 201 1000 / 1000 Weight 45.359 kg Intake: IV 201 / 201 1000 / 1000 NS Inj 1,000 ML @ 125 mls/hr IV 1000 / [address] [facility] Rx#:[id number] Rocephin Inj 1,000 MG In NS Inj 100 / 100 100 ML @ 200 mls/hr IV.SIG Q24H [facility] Rx#:[id number] Mental Status Examination Appearance: Appropriate Consciousness: Clouded Orientation: Person Speech: Incoherent Suicidal Ideation: No Suicidal Plan: No Suicidal Intention: No Homicidal Ideation: No Homicidal Plan: No Homicidal Intention: No Insight: Poor Judgment: Poor (MSE is limited due to altered mental status.) Assessment and Plan - Assessment (1) Acute drug overdose Code(s): T50.901A - Poisoning by unspecified drugs, medicaments and biological substances, accidental (unintentional), initial encounter Status: Acute (2) Delirium due to another medical condition Code(s): F05 - Delirium due to known physiological condition Status: Acute - Plan Plan: Estimated LOS: [] days The patient presents poorly cooperative, lethargic, with abnormal perioral movements. No providing any significant information for the psychiatric assessment at this moment. However she seems to be a little bit restless, with autonomic instability, elevated heart rate and blood pressure, her son suggested the patient has not been taking benzodiazepine for a couple of days. Benzodiazepine withdrawal in this case should be highly suspected. Order [facility] protocol. No psychiatric admission is indicated at this moment. I will follow- up. Justification for Continued Inpatient Stay: No admission is indicated at the moment (1) Acute drug overdose Qualifiers: Encounter type: initial encounter Injury intent: undetermined intent Qualified Code(s): T50.904A - Poisoning by unspecified drugs, medicaments and biological substances, undetermined, initial encounter
--- NOTE | 2018-01-22 16:14 | ECG ---
Date Performed: 01/22/2018 Time Performed: 03:09:06 PTAGE: 77 years EKG: SINUS TACHYCARDIA NONSPECIFIC T-WAVE ABNORMALITY Since the previous tracing, no significant change noted ABNORMAL RHYTHM ECG NO PREVIOUS TRACING DOCTOR: Tobias Weldon Interpretating Date/Time 01/22/2018 16:12:42
--- NOTE | 2018-01-22 16:15 | ECG ---
Date Performed: 01/22/2018 Time Performed: 09:16:29 PTAGE: 77 years EKG: SINUS TACHYCARDIA LOW QRS VOLTAGE IN EXTREMITY LEADS NONSPECIFIC T-WAVE ABNORMALITY Since t he previous tracing, no significant change noted ABNORMAL RHYTHM ECG PREVIOUS TRACING : 01/22/2018 03.09 DOCTOR: Tobias Weldon Interpretating Date/Time 01/22/2018 16:12:51
[2018-01-22] MEDS: Folic Acid 1 MG Tablet PO SCH (17:43)
[2018-01-22] MEDS: LORazepam 1 MG Tablet PO PRN (17:44)
[2018-01-22] MEDS: Multivitamin/Minerals Therapeutic Tablet PO SCH (17:47)
[2018-01-22] MEDS: Haloperidol Inj 5 MG/ML Ampul IV.PUSH PRN (21:46)
[2018-01-23] MEDS: Sod Chloride 0.9% Inj 1,000 ML IV.CONT SCH ×6 (00:27→23:10)
[2018-01-23] MEDS ORDERED: Gadobutrol PF 2 MMOL/2 ML Vial (for RAD) IV.SIG ONE ×2 (02:10→21:26)
[2018-01-23] MEDS: LORazepam 1 MG Tablet PO PRN (05:01)
[2018-01-23] MEDS: Levothyroxine 50 MCG Tablet PO SCH (05:04)
[2018-01-23 08:54] LABS: Baso % (Auto) 0.2 % (0.0-2.0); Hematocrit 31.5 % (35.0-46.0); Hemoglobin 10.5 gm/dL (11.6-15.3); Lymph # (Auto) 0.7 th/mm3 (1.0-4.8); Lymph % (Auto) 6.3 % (9.0-44.0); Mean Corpuscular HGB Conc 33.4 % (32.0-36.0); Mean Corpuscular Hemoglobin 30.6 pg (27.0-34.0); Mean Corpuscular Volume 91.7 fL (80.0-100.0); Mean Platelet Volume 9.4 fL (7.0-11.0); Mono # (Auto) 0.9 th/mm3 (0.0-0.9); Mono % (Auto) 8.5 % (0.0-8.0); Neut # (Auto) 8.9 th/mm3 (1.8-7.7); Platelet Count 173 th/mm3 (150-450); Red Blood Count 3.43 mil/mm3 (4.00-5.30); Red Cell Distribution Width 14.4 % (11.6-17.2); White Blood Count 10.5 th/mm3 (4.0-11.0)
[2018-01-23 09:06] LABS: INR 1.3 Ratio; Prothrombin Time 13.4 sec (9.8-11.6)
--- NOTE | 2018-01-23 09:17 | P.PNNEU ---
Subjective Subjective Comments: No acute events, still confused Active Medications: Active Medications Al Hydroxide/Mg Hydroxide (Milk Of Magnesia Liq) 30 ml PO Q12H PRN PRN Reason: Mild Constipation Albuterol (Duoneb Neb (Prn)) 1 ampul NEB Q2HR NEB PRN PRN Reason: SHORTNESS OF BREATH Bisacodyl (Dulcolax Supp) 10 mg RECTAL DAILY PRN PRN Reason: SEVERE CONSITIPATION Clonidine HCl (Catapres) 0.1 mg PO Q6H PRN PRN Reason: For SBP >/= 180, DBP >/= 100 Flumazenil (Romazecon Inj) 0.2 mg IV.PUSH Q1M PRN PRN Reason: OVERSEDATION Folic Acid (Folic Acid) 1 mg PO DAILY [facility] Stop: 01/27/18 16:29 Last Admin: 01/22/18 17:43 Dose: Not Given Haloperidol Lactate (Haldol Inj) 1 mg IV.PUSH Q15M PRN PRN Reason: for severe agitation Last Admin: 01/22/18 21:46 Dose: 1 mg Sodium Chloride (Ns Inj) 1,000 mls @ 125 mls/hr IV.CONT .Q8H [facility] Last Admin: 01/23/18 02:33 Dose: 125 mls/hr Ceftriaxone Sodium 1,000 mg/ (Sodium Chloride) 100 mls @ 200 mls/hr IV.SIG Q24H [facility] Last Infusion: 01/23/18 06:23 Dose: Infused Sodium Chloride (Ns Inj) 1,000 mls @ 100 mls/hr IV.CONT .Q10H [facility] Last Admin: 01/23/18 00:27 Dose: Not Given Lactulose (Lactulose Liq) 30 ml PO DAILY PRN PRN Reason: SEVERE CONSITIPATION Levothyroxine Sodium (Synthroid) 50 mcg PO DAILY@0600 [facility] Last Admin: 01/23/18 05:04 Dose: 50 mcg Lorazepam (Ativan) 1 mg PO Q4H PRN PRN Reason: for CIWA 8-10 Last Admin: 01/23/18 05:01 Dose: 1 mg Lorazepam (Ativan) 2 mg PO Q2H PRN PRN Reason: for CIWA 11-14 Lorazepam (Ativan Inj) 2 mg IV.PUSH Q2H PRN PRN Reason: for CIWA 11-14 Lorazepam (Ativan Inj) 2 mg IV.PUSH Q1H PRN PRN Reason: for CIWA 15-20 Lorazepam (Ativan Inj) 2 mg IV.PUSH Q15M PRN PRN Reason: for CIWA > 20 Lorazepam (Ativan Inj) 1 mg IV.PUSH Q4H PRN PRN Reason: for CIWA 8-10 Last Admin: 01/22/18 17:56 Dose: 1 mg Multivitamins/Minerals (Theragran-M) 1 tab PO DAILY [facility] Stop: 01/27/18 16:29 Last Admin: 01/22/18 17:47 Dose: Not Given Ondansetron HCl (Zofran Inj) 4 mg IV.PUSH Q6H PRN PRN Reason: NAUSEA OR VOMITING Pantoprazole Sodium (Protonix) 40 mg PO DAILY [facility] Last Admin: 01/22/18 17:44 Dose: Not Given Sennosides (Senokot) 17.2 mg PO Q12H PRN PRN Reason: Moderate Constipation Sodium Chloride (Ns Flush) 2 ml IV.FLUSH PRN PRN PRN Reason: FLUSH AFTER USING IV ACCESS Thiamine HCl (Vitamin B1) 100 mg PO DAILY [facility] Last Admin: 01/22/18 17:44 Dose: Not Given Allergies/Adverse Reactions: Allergies Allergy/AdvReac Type Severity Reaction Status Date / Time pentazocine Allergy Severe Hallucinati Verified 01/22/18 04:04 ons promethazine Allergy Severe Restlessnes Verified 01/22/18 04:04 s Review of Systems All other systems reviewed negative except as stated in HPI Physical Exam Vital signs: Vital Signs 01/22/18 11:40 01/22/18 16:00 01/22/18 16:20 Temperature 98.7 F 98.4 F Pulse Rate 113 H 108 H 101 H Respiratory Rate 18 Blood Pressure 132/76 126/80 Pulse Oximetry 94 L 94 L 01/22/18 19:36 01/22/18 20:01 01/22/18 23:23 Temperature 99.7 F H 98.2 F 100.5 F H Pulse Rate 123 H 98 H 113 H Respiratory Rate 18 17 Blood Pressure 123/61 133/72 130/76 Pulse Oximetry 97 90 L 94 L 01/23/18 03:48 01/23/18 07:56 01/23/18 08:11 Temperature 98.7 F 98.5 F Pulse Rate 99 H 110 H 108 H Respiratory Rate 18 22 Blood Pressure 140/71 123/77 Pulse Oximetry 94 L 96 Intake & Output 01/22/18 01/23/18 01/23/18 18:59 06:59 18:59 Intake Total 1999 1100 / 1100 Balance 1999 1100 / 1100 Weight 44.9 kg Intake: IV 1999 1100 / 1100 NS Inj 1,000 ML @ 125 mls/hr IV 1999 1000 / 1000 .CONT .Q8H [facility] Rx#:[id number] Rocephin Inj 1,000 MG In NS Inj 100 / 100 100 ML @ 200 mls/hr IV.SIG Q24H [facility] Rx#:[id number] Narrative: GENERAL: Patient lying in bed. Appears comfortable. Disoriented. SKIN: Warm and dry. HEAD: Atraumatic. Normocephalic. EYES: Pupils equal and round. No scleral icterus. No injection or drainage. ENT: No nasal bleeding or discharge. Mucous membranes pink and moist. NECK: Trachea midline. No JVD. CARDIOVASCULAR: Regular rate and rhythm. RESPIRATORY: No accessory muscle use. Clear to auscultation. Breath sounds equal bilaterally. GASTROINTESTINAL: Abdomen soft, non-tender, nondistended. Hepatic and splenic margins not palpable. MUSCULOSKELETAL: Extremities without clubbing, cyanosis, or edema. No obvious deformities. NEUROLOGICAL: Awake mild orofacial dyskinesias, not following mumbles, moving all limbs to gravity no resting tremor no rigidity PSYCHIATRIC: Confused poor insight - Constitutional no acute distress - Routine HEENT Exam Head: Present: normocephalic Eye: Present: EOMI Objective Laboratory Results - last 24 hr 01/22/18 01/22/18 01/22/18 10:57 10:57 10:57 WBC RBC Hgb Hct MCV MCH MCHC RDW Plt Count MPV Neut % (Auto) Lymph % (Auto) [place] % (Auto) Eos % (Auto) Baso % (Auto) Neut # (Auto) Lymph # (Auto) [place] # (Auto) Eos # (Auto) Baso # (Auto) WBC Differential Differential Comment ESR 37 H PT INR POC Glucose C-Reactive Protein 5.57 H Vitamin B12 353 TSH Free T4 1.17 01/22/18 01/22/18 01/22/18 10:57 17:21 23:35 WBC RBC Hgb Hct MCV MCH MCHC RDW Plt Count MPV Neut % (Auto) Lymph % (Auto) [place] % (Auto) Eos % (Auto) Baso % (Auto) Neut # (Auto) Lymph # (Auto) [place] # (Auto) Eos # (Auto) Baso # (Auto) WBC Differential Differential Comment ESR PT INR POC Glucose 86 95 C-Reactive Protein Vitamin B12 TSH 0.642 Free T4 01/23/18 01/23/18 08:10 08:10 WBC 10.5 RBC 3.43 L Hgb 10.5 L Hct 31.5 L MCV 91.7 MCH 30.6 MCHC 33.4 RDW 14.4 Plt Count 173 MPV 9.4 Neut % (Auto) 85.0 H Lymph % (Auto) 6.3 L [place] % (Auto) 8.5 H Eos % (Auto) 0.0 Baso % (Auto) 0.2 Neut # (Auto) 8.9 H Lymph # (Auto) 0.7 L [place] # (Auto) 0.9 Eos # (Auto) 0.0 Baso # (Auto) 0.0 WBC Differential . Differential Comment Auto diff final ESR PT 13.4 H INR 1.3 POC Glucose C-Reactive Protein Vitamin B12 TSH Free T4 Review/Management - Diagnosis (1) Acute encephalopathy Code(s): G93.40 - Encephalopathy, unspecified Status: Acute Current Visit: Yes (2) Altered mental status Code(s): R41.82 - Altered mental status, unspecified Status: Acute Current Visit: Yes (3) Acute drug overdose Code(s): T50.901A - Poisoning by unspecified drugs, medicaments and biological substances, accidental (unintentional), initial encounter Status: Acute Current Visit: Yes - Review/Management Plan: Oral buccal dyskinesias, encephalopathy likely related to excessive medication intake and thus likely a drug-induced encephalopathy UA essentially negative. Mild leukocytosis Patient had a trial of IV Ativan Recommendations EEG pending MRI brain scan pending Discussed with RN Follow exam (2) Altered mental status Qualifiers: Altered mental status type: disorientation Qualified Code(s): R41.0 - Disorientation, unspecified (3) Acute drug overdose Qualifiers: Encounter type: initial encounter Injury intent: undetermined intent Qualified Code(s): T50.904A - Poisoning by unspecified drugs, medicaments and biological substances, undetermined, initial encounter
[2018-01-23 09:38] LABS: Albumin 2.8 g/dL (3.4-5.0); Calcium 6.9 mg/dL (8.5-10.1); Carbon Dioxide 19.6 meq/L (21.0-32.0); Magnesium 1.8 mg/dL (1.5-2.5); Phosphorus 1.6 mg/dL (2.5-4.9); Total Protein 6.3 g/dL (6.4-8.2)
[2018-01-23 09:44] LABS: Potassium 2.8 meq/L (3.5-5.1)
[2018-01-23] MEDS: SODIUM CHLOR 0.9% IV.SIG SCH ×2 (10:52→19:37)
[2018-01-23] MEDS: ACYCLOVIR IV.SIG SCH ×2 (10:52→19:37)
--- NOTE | 2018-01-23 10:57 | P.PNIM ---
Subjective Interval history: 77-year-old female with history of hypothyroidism, insomnia, chronic pain who presents with altered mental status. Patient appears to have internal stimuli. Family reports that she has had about 36 tablets of Unisom over the past week. Patient denies any pain, however is very distracted and with disjointed speech. Family not at bedside during exam, and history is obtained from chart review. 01-22 PATIENT REMAINS VERY CONFUSED HAVING LIP SMACKING MOVEMENTS NOT ABLE TO GIVE GOOD HISTORY NOT SURE IF THIS IS BASELINE OR DUE TO UNISOM DW RN AND PT AND PSYCHIATRY AM LAB 01-23 PATIENT STILL DOING LIP SMACKING MOVEMENTS NOT ABLE TO GET GOOD HISTORY MAKE FULL ADMIT CONSULT PALLIATIVE CARE REPLACE POTASSIUM AND MAGNESIUM FARIHA RN AND CM Physical Exam Vital signs: Vital Signs 01/22/18 11:40 01/22/18 16:00 01/22/18 16:20 Temperature 98.7 F 98.4 F Pulse Rate 113 H 108 H 101 H Respiratory Rate 18 Blood Pressure 132/76 126/80 Pulse Oximetry 94 L 94 L 01/22/18 19:36 01/22/18 20:01 01/22/18 23:23 Temperature 99.7 F H 98.2 F 100.5 F H Pulse Rate 123 H 98 H 113 H Respiratory Rate 18 17 Blood Pressure 123/61 133/72 130/76 Pulse Oximetry 97 90 L 94 L 01/23/18 03:48 01/23/18 07:56 01/23/18 08:11 Temperature 98.7 F 98.5 F Pulse Rate 99 H 110 H 108 H Respiratory Rate 18 22 Blood Pressure 140/71 123/77 Pulse Oximetry 94 L 96 Intake & Output 01/22/18 01/23/18 01/23/18 18:59 06:59 18:59 Intake Total 1999 1100 / 1100 Balance 1999 1100 / 1100 Weight 44.9 kg Intake: IV 1999 1100 / 1100 NS Inj 1,000 ML @ 125 mls/hr IV 1999 1000 / 1000 .CONT .Q8H [facility] Rx#:[id number] Rocephin Inj 1,000 MG In NS Inj 100 / 100 100 ML @ 200 mls/hr IV.SIG Q24H [facility] Rx#:[id number] Narrative: GENERAL: Patient lying in bed. Appears comfortable. Disoriented. SKIN: Warm and dry. HEAD: Atraumatic. Normocephalic. EYES: Pupils equal and round. No scleral icterus. No injection or drainage. ENT: No nasal bleeding or discharge. Mucous membranes pink and moist. NECK: Trachea midline. No JVD. CARDIOVASCULAR: Regular rate and rhythm. RESPIRATORY: No accessory muscle use. Clear to auscultation. Breath sounds equal bilaterally. GASTROINTESTINAL: Abdomen soft, non-tender, nondistended. Hepatic and splenic margins not palpable. MUSCULOSKELETAL: Extremities without clubbing, cyanosis, or edema. No obvious deformities. NEUROLOGICAL: Awake mild orofacial dyskinesias, not following mumbles, moving all limbs to gravity no resting tremor no rigidity PSYCHIATRIC: Confused poor insight Results - Labs CBC & Chem 7: 01/23/18 08:10 01/23/18 08:10 Laboratory Results - last 24 hr 01/22/18 01/22/18 01/22/18 10:57 10:57 10:57 WBC RBC Hgb Hct MCV MCH MCHC RDW Plt Count MPV Neut % (Auto) Lymph % (Auto) [place] % (Auto) Eos % (Auto) Baso % (Auto) Neut # (Auto) Lymph # (Auto) [place] # (Auto) Eos # (Auto) Baso # (Auto) WBC Differential Differential Comment ESR 37 H PT INR Sodium Potassium Chloride Carbon Dioxide Anion Gap BUN Creatinine Estimated GFR POC Glucose Random Glucose Calcium Prot Corrected Calcium Phosphorus Magnesium Total Bilirubin AST ALT Alkaline Phosphatase C-Reactive Protein 5.57 H Total Protein Albumin Vitamin B12 353 TSH Free T4 1.17 01/22/18 01/22/18 01/22/18 10:57 17:21 23:35 WBC RBC Hgb Hct MCV MCH MCHC RDW Plt Count MPV Neut % (Auto) Lymph % (Auto) [place] % (Auto) Eos % (Auto) Baso % (Auto) Neut # (Auto) Lymph # (Auto) [place] # (Auto) Eos # (Auto) Baso # (Auto) WBC Differential Differential Comment ESR PT INR Sodium Potassium Chloride Carbon Dioxide Anion Gap BUN Creatinine Estimated GFR POC Glucose 86 95 Random Glucose Calcium Prot Corrected Calcium Phosphorus Magnesium Total Bilirubin AST ALT Alkaline Phosphatase C-Reactive Protein Total Protein Albumin Vitamin B12 TSH 0.642 Free T4 01/23/18 01/23/18 01/23/18 08:10 08:10 08:10 WBC 10.5 RBC 3.43 L Hgb 10.5 L Hct 31.5 L MCV 91.7 MCH 30.6 MCHC 33.4 RDW 14.4 Plt Count 173 MPV 9.4 Neut % (Auto) 85.0 H Lymph % (Auto) 6.3 L [place] % (Auto) 8.5 H Eos % (Auto) 0.0 Baso % (Auto) 0.2 Neut # (Auto) 8.9 H Lymph # (Auto) 0.7 L [place] # (Auto) 0.9 Eos # (Auto) 0.0 Baso # (Auto) 0.0 WBC Differential . Differential Comment Auto diff final ESR PT 13.4 H INR 1.3 Sodium 146 H Potassium 2.8 L* Chloride 113 H D Carbon Dioxide 19.6 L Anion Gap 13 BUN 12 Creatinine 0.74 Estimated GFR 76 L POC Glucose Random Glucose 90 Calcium 6.9 L* Prot Corrected Calcium 7.3 L* Phosphorus 1.6 L Magnesium 1.8 Total Bilirubin 0.5 AST 37 ALT 17 Alkaline Phosphatase 178 H C-Reactive Protein Total Protein 6.3 L D Albumin 2.8 L Vitamin B12 TSH Free T4 01/23/18 09:35 WBC RBC Hgb Hct MCV MCH MCHC RDW Plt Count MPV Neut % (Auto) Lymph % (Auto) [place] % (Auto) Eos % (Auto) Baso % (Auto) Neut # (Auto) Lymph # (Auto) [place] # (Auto) Eos # (Auto) Baso # (Auto) WBC Differential Differential Comment ESR PT INR Sodium Potassium Chloride Carbon Dioxide Anion Gap BUN Creatinine Estimated GFR POC Glucose 103 Random Glucose Calcium Prot Corrected Calcium Phosphorus Magnesium Total Bilirubin AST ALT Alkaline Phosphatase C-Reactive Protein Total Protein Albumin Vitamin B12 TSH Free T4 - Imaging Chest X-Ray 01/21/18 23:26 CONCLUSION: No acute cardiopulmonary disease demonstrated. Head CT 01/21/18 23:26 CONCLUSION: Motion degraded study. No acute abnormality demonstrated. . - Procedures NONE Assessment and Plan - Plan Suspected overdose Toxic encephalopathy = Patient reportedly overdosed on 36 tablets of Unisom over the past week Placed on normal saline at 100 mL/h. Avoid sedating medications Order EEG.--WAS REFUSED BY PATINENT Seizure disorder. Will check EEG. Hypothyroidism. On replacement. Will check TSH. COPD. Duo nebs as needed. Chronic back pain. Patient is on high-dose narcotic pain meds at home. Hold narcotic meds for now. Hypokalemia will replace and recheck in a.m. Hypomagnesia will replace and recheck in a.m. CONSULT PSYCHIATRY PT AND OT ST MAY NEED SNF VS INPATIENT PSYCHIATRY AM LABS MAKE FULL ADMIT REPLACE POTASSIUM REPLACE MAGNESIUM AM LABS PALLIATIVE CARE CONSULT NGT VS DOBBHOFF IF NOT ABLE TO EAT SOON Code Status: FULL CODE Discussed Condition With: RN AND CM AND PT Discharge Planning: SNF VS INPATIENT PSYCHIATRY
[2018-01-23] MEDS: Haloperidol Inj 5 MG/ML Ampul IV.PUSH PRN ×2 (11:03→11:32)
[2018-01-23] MEDS ORDERED: Magnesium Sulfate Inj 2 GM in Sodium Chlor 0.9% Inj 96 ML IV.SIG ONE (13:00)
[2018-01-23] MEDS ORDERED: Acetaminophen 650 MG Supp RECTAL PRN (13:15)
--- NOTE | 2018-01-23 13:44 | P.CONPAL ---
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 statutes, her will serve as her decision-maker, supported by her children. No prior healthcare surrogate's or living will are available. Goals: To be determined CODE STATUS: FULL CODE by default SYMPTOMS: * Confusion: At this time she does not even appear to be oriented to self. She cannot tell me her name. She has reportedly taken a very large number of Unisom tablets (diphenhydramine) over the prior week. Her son states she has a paradoxical reaction to medications. Family's wish is to continue to monitor for now to see if she regains her baseline mentation. She has Haldol and Ativan available as needed. Restrained use of narcotics is being used due to her age and altered mental status. * Dyskinesia: This is a new finding and neurology is evaluating. There is some suspicion that this could be related to her high doses of diphenhydramine lately. If this becomes a chronic finding, the use of Cogentin and suggested by neurology. SUMMARY This is a 77-year-old female who presented with altered mental status after having imbibed 36 (presumably) 25 mg Unisom (diphenhydramine) over the prior week. She is cared for at home by her and son and is normally able to walk around the home and is conversant. At this time she is hallucinating and unable to follow commands. She is unable to state her name. She is being monitored for benzodiazepine withdrawal with [facility] protocol. Pending family meeting to determine goals of care. She is at risk further decline, complications and readmissions. Palliative care will continue to follow the patient during hospital course as condition evolves, to assist patient/decision-maker with understanding of their medical conditions, weighing benefits/burdens of treatment options, for clarification of goals of treatment. Additionally will assist with any symptoms of palliative concern. . Appreciation Thank you for the opportunity to participate in the care of Sarah Roth. Attestation Attestation: To help prompt me to consider important information that might be impacting today's encounter and assessment, information from prior notes written by myself or my colleagues may have been "brought forward" into today's note. My signature on this note, however, is an attestation that I personally performed the exam, history, and/or decision-making noted today, and, unless otherwise indicated, the interactions with patient, family, and staff as well as the review of records all occurred today. I also attest that the listed assessment and stated plan reflect my best clinical judgment today based on the combination of historical information, prior notes, and today's exam/ interactions. When time spent is documented, it refers only to time spent today by the signer, or if indicated, combined time spent today by collaborating physician/nurse practitioner. .
[2018-01-23] MEDS: Potassium Chloride Inj 20 MEQ in Sodium Chlor 0.9% Inj 100 ML IV.SIG SCH ×2 (14:50→22:38)
[2018-01-23] MEDS: Multivitamin/Minerals Therapeutic Tablet PO SCH (14:51)
[2018-01-23] MEDS: Folic Acid 1 MG Tablet PO SCH (14:51)
--- NOTE | 2018-01-23 16:04 | MG ---
cc: Paolo Che MD, PhD TEST NUMBER: [id number] TECHNIQUE: A 17-channel EEG. DESCRIPTION: Background rhythm reveals alpha rhythm, frequency is about 8 Hz. There is significant muscle artifact throughout the tracing. I do not see any epileptiform discharges or lateralizing features. The patient described as having chewing activity throughout the recording. Photic results in a symmetrical driving response. INTERPRETATION: Overall appears to be normal alpha activity, although somewhat obscured by muscle artifact, but no definite epileptiform features are seen. Paolo Che MD, PhD ADAN/catherine , 03:45 PM , 03:51 PM
[2018-01-23] MEDS: Piperacil/Tazo 3.375 GM Premix 50 ML IV.SIG SCH (17:44)
[2018-01-23 18:10] LABS: Hemoglobin A1c 5.1 % (4.3-6.0)
--- NOTE | 2018-01-23 21:38 | MR ---
EXAM DATE: 01/23/2018 9:28 PM EDT AGE/SEX: 77 years / Female INDICATIONS: Altered mental status. CLINICAL DATA: This is the patient's subsequent encounter. Patient reports that signs and symptoms h ave been present for 2 days and indicates a pain score of 0/10. MEDICAL/SURGICAL HISTORY: . COPD, Chronic Back pain, HTN, Seizure, Hypothyroidism . Gastric By pass (20+yrs) [place] [facility] [place] 05/02/2011. . TECHNIQUE: Multiplanar, multisequence examination of the brain was performed without and with 4ml ml Gadavist (gadobutrol) contrast as a single exam dose. FINDINGS: Cerebrum: The ventricles and cortical sulci are mildly widened. There is expansion of the extra-axia l spaces. There are small old lacunar infarct at the basal ganglia regions. No evidence of midline sh ift, mass lesion, hemorrhage or acute infarction. The pituitary gland and suprasellar cistern are no rmal in configuration. White Matter: There are a few scattered minimal areas of increased signal within the cerebral white matter. Posterior Fossa: The cerebellum and brainstem are intact. The 4th ventricle is midline. The cerebel lopontine angle is unremarkable. The cerebellar tonsils are normal in position. Diffusion Imaging: No focal areas of restricted diffusion are seen. No evidence of acute infarction . Extracranial: The visualized portions of the orbits and paranasal sinuses are unremarkable. Post Contrast: No abnormal areas of parenchymal or dural enhancement. No evidence of blood-brain ba rrier breakdown. CONCLUSION: 1. No acute abnormality. 2. Atrophy. Electronically signed by: Jace Rodriguez MD 01/23/2018 9:36 PM EDT
[2018-01-24] MEDS: Piperacil/Tazo 3.375 GM Premix 50 ML IV.SIG SCH ×4 (00:02→22:54)
[2018-01-24] MEDS: Potassium Chloride Inj 20 MEQ in Sodium Chlor 0.9% Inj 100 ML IV.SIG SCH ×3 (01:44→23:16)
[2018-01-24] MEDS: Sod Chloride 0.9% Inj 1,000 ML IV.CONT SCH ×2 (03:32→05:56)
[2018-01-24] MEDS: SODIUM CHLOR 0.9% IV.SIG SCH ×2 (03:34→14:14)
[2018-01-24] MEDS: ACYCLOVIR IV.SIG SCH ×2 (03:34→14:14)
[2018-01-24 05:18] LABS: Baso % (Auto) 0.3 % (0.0-2.0); Hematocrit 32.3 % (35.0-46.0); Hemoglobin 10.5 gm/dL (11.6-15.3); Lymph # (Auto) 0.8 th/mm3 (1.0-4.8); Lymph % (Auto) 7.1 % (9.0-44.0); Mean Corpuscular HGB Conc 32.6 % (32.0-36.0); Mean Corpuscular Hemoglobin 30.4 pg (27.0-34.0); Mean Corpuscular Volume 93.2 fL (80.0-100.0); Mean Platelet Volume 8.9 fL (7.0-11.0); Mono % (Auto) 9.3 % (0.0-8.0); Neut # (Auto) 9.1 th/mm3 (1.8-7.7); Neut % (Auto) 83.3 % (16.0-70.0); Platelet Count 196 th/mm3 (150-450); Red Blood Count 3.47 mil/mm3 (4.00-5.30); Red Cell Distribution Width 14.6 % (11.6-17.2); White Blood Count 10.9 th/mm3 (4.0-11.0)
[2018-01-24] MEDS ORDERED: Metoprolol Tartrate 25 MG Tablet PO ONE (06:26)
[2018-01-24] MEDS ORDERED: Sodium Chloride 0.45 % Inj 1,000 ML IV.CONT SCH (06:30)
[2018-01-24] MEDS: Levothyroxine 50 MCG Tablet PO SCH (06:50)
[2018-01-24 08:25] LABS: Alanine Aminotransferase 20 U/L (10-53); Albumin 2.7 g/dL (3.4-5.0); Alkaline Phosphatase 156 U/L (45-117); Anion Gap 11 meq/L (5-15); Aspartate Aminotransferase 33 U/L (15-37); Blood Urea Nitrogen 14 mg/dL (7-18); Calcium 7.5 mg/dL (8.5-10.1); Carbon Dioxide 22.5 meq/L (21.0-32.0); Chloride 125 meq/L (98-107); Glomerular Filtration Rate 79 mL/min (>89); Glucose,Random 109 mg/dL (74-106); Magnesium 2.4 mg/dL (1.5-2.5); Phosphorus 1.6 mg/dL (2.5-4.9); Total Protein 6.1 g/dL (6.4-8.2)
[2018-01-24 08:29] LABS: Sodium 158 meq/L (136-145)
[2018-01-24] MEDS ORDERED: ACYCLOVIR IV.SIG SCH ×2 (09:00→14:00)
[2018-01-24] MEDS ORDERED: SODIUM CHLOR 0.9% IV.SIG SCH ×2 (09:00→14:00)
--- NOTE | 2018-01-24 09:27 | P.PNIM ---
Subjective Interval history: 77-year-old female with history of hypothyroidism, insomnia, chronic pain who presents with altered mental status. Patient appears to have internal stimuli. Family reports that she has had about 36 tablets of Unisom over the past week. Patient denies any pain, however is very distracted and with disjointed speech. Family not at bedside during exam, and history is obtained from chart review. 01-22 PATIENT REMAINS VERY CONFUSED HAVING LIP SMACKING MOVEMENTS NOT ABLE TO GIVE GOOD HISTORY NOT SURE IF THIS IS BASELINE OR DUE TO UNISOM DW RN AND PT AND PSYCHIATRY AM LAB 01-23 PATIENT STILL DOING LIP SMACKING MOVEMENTS NOT ABLE TO GET GOOD HISTORY MAKE FULL ADMIT CONSULT PALLIATIVE CARE REPLACE POTASSIUM AND MAGNESIUM DW RN AND CM 01-24 Patient remains quite altered at this time Has been seen by palliative care yesterday Not able to pass swallow eval yet Was given Ativan last night Had issues with heart rate was started on Lopressor Discussed with RN and patient encasement Physical Exam Vital signs: Vital Signs 01/23/18 12:31 01/23/18 12:38 01/23/18 15:56 Temperature 100.7 F H 99.4 F Pulse Rate 117 H 118 H Respiratory Rate 24 45 H 24 Blood Pressure 114/82 139/71 Pulse Oximetry 94 L 94 L 01/23/18 17:07 01/24/18 00:00 01/24/18 04:00 Temperature 98.7 F 99.1 F Pulse Rate 115 H 75 116 H Respiratory Rate 19 18 Blood Pressure 110/68 116/62 Pulse Oximetry 94 L 92 L 01/24/18 07:47 Temperature 98.1 F Pulse Rate 104 H Respiratory Rate 18 Blood Pressure 119/85 Pulse Oximetry 93 L Intake & Output 01/23/18 01/24/18 01/24/18 18:59 06:59 18:59 Intake Total 369 / 369 3688 / 3688 Balance 369 / 369 3688 / 3688 Intake: IV 369 / 369 3688 / 3688 NS Inj 1,000 ML @ 100 mls/hr IV 3000 / 3000 .CONT .Q10H [facility] Rx#:[id number] Zovirax Inj 450 MG In NS Inj 109 / 109 218 / 218 100 ML @ 109 mls/hr IV.SIG Q8H [facility] Rx#:[id number] Magnesium Sulfate Inj 2 GM In 100 / 100 NS Inj 96 ML @ 50 mls/hr IV.SIG ONCE ONE Rx#:[id number] Zosyn 3.375 GM Premix 50 ML @ 50 / 50 50 / 50 100 mls/hr IV.SIG Q8H [facility] Rx#: [id number] KCl Inj 20 MEQ In NS Inj 100 ML 110 / 110 220 / 220 @ 50 mls/hr IV.SIG Q2H [facility] Rx# :[id number] Flagyl 500 MG Inj 100 ML @ 100 200 / 200 mls/hr IV.SIG Q8H [facility] Rx#: [id number] Other: # Voids 3 Date of Last Bowel Movement 01/23/18 # Bowel Movements 3 Narrative: GENERAL: Patient lying in bed. Appears comfortable. Disoriented. SKIN: Warm and dry. HEAD: Atraumatic. Normocephalic. EYES: Pupils equal and round. No scleral icterus. No injection or drainage. ENT: No nasal bleeding or discharge. Mucous membranes pink and moist. Lip smacking NECK: Trachea midline. No JVD. CARDIOVASCULAR: Regular rate and rhythm. RESPIRATORY: No accessory muscle use. Clear to auscultation. Breath sounds equal bilaterally. GASTROINTESTINAL: Abdomen soft, non-tender, nondistended. Hepatic and splenic margins not palpable. MUSCULOSKELETAL: Extremities without clubbing, cyanosis, or edema. No obvious deformities. NEUROLOGICAL: Awake mild orofacial dyskinesias, not following mumbles, moving all limbs to gravity no resting tremor no rigidity PSYCHIATRIC: Confused poor insight Results - Labs CBC & Chem 7: 01/24/18 04:54 01/24/18 07:14 Laboratory Results - last 24 hr 01/22/18 01/22/18 01/22/18 01:20 10:57 10:57 WBC RBC Hgb Hct MCV MCH MCHC RDW Plt Count MPV Neut % (Auto) Lymph % (Auto) [place] % (Auto) Eos % (Auto) Baso % (Auto) Neut # (Auto) Lymph # (Auto) [place] # (Auto) Eos # (Auto) Baso # (Auto) WBC Differential Differential Comment Sodium Potassium Chloride Carbon Dioxide Anion Gap BUN Creatinine Estimated GFR POC Glucose Random Glucose Hemoglobin A1c 5.1 Lactic Acid Calcium Prot Corrected Calcium Phosphorus Magnesium Total Bilirubin AST ALT Alkaline Phosphatase Ammonia Total Protein Albumin Urine Color Yellow Urine Clarity Hazy H Urine pH 7.0 Ur Specific [place] 1.010 Urine Protein Negative Urine Glucose (UA) Negative Urine Ketones Negative Urine Occult Blood Negative Urine Nitrate Negative Urine Bilirubin Negative Urine Urobilinogen 2.0 H Ur Leukocyte Esterase Trace H Urine RBC Less than 1 Urine WBC 19 H Ur Squamous Epith Cells <1 Urine Bacteria Rare H Hyaline Casts 1 Urine Mucus Few H Micro UA Comment Cath-culture ind Urine Culture Comments Cath-cult indicated St C. diff Tox Epid 027 RPR Nonreactive C. difficile (PCR) 01/23/18 01/23/18 01/23/18 08:10 09:35 11:08 WBC RBC Hgb Hct MCV MCH MCHC RDW Plt Count MPV Neut % (Auto) Lymph % (Auto) [place] % (Auto) Eos % (Auto) Baso % (Auto) Neut # (Auto) Lymph # (Auto) [place] # (Auto) Eos # (Auto) Baso # (Auto) WBC Differential Differential Comment Sodium 146 H Potassium 2.8 L* Chloride 113 H D Carbon Dioxide 19.6 L Anion Gap 13 BUN 12 Creatinine 0.74 Estimated GFR 76 L POC Glucose 103 Random Glucose 90 Hemoglobin A1c Lactic Acid Calcium 6.9 L* Prot Corrected Calcium 7.3 L* Phosphorus 1.6 L Magnesium 1.8 Total Bilirubin 0.5 AST 37 ALT 17 Alkaline Phosphatase 178 H Ammonia Total Protein 6.3 L D Albumin 2.8 L Urine Color Urine Clarity Urine pH Ur Specific [place] Urine Protein Urine Glucose (UA) Urine Ketones Urine Occult Blood Urine Nitrate Urine Bilirubin Urine Urobilinogen Ur Leukocyte Esterase Urine RBC Urine WBC Ur Squamous Epith Cells Urine Bacteria Hyaline Casts Urine Mucus Micro UA Comment Urine Culture Comments St C. diff Tox Epid 027 Negative RPR C. difficile (PCR) Negative 01/23/18 01/23/18 01/24/18 13:17 18:20 03:18 WBC RBC Hgb Hct MCV MCH MCHC RDW Plt Count MPV Neut % (Auto) Lymph % (Auto) [place] % (Auto) Eos % (Auto) Baso % (Auto) Neut # (Auto) Lymph # (Auto) [place] # (Auto) Eos # (Auto) Baso # (Auto) WBC Differential Differential Comment Sodium Potassium Chloride Carbon Dioxide Anion Gap BUN Creatinine Estimated GFR POC Glucose 124 H 112 H 116 H Random Glucose Hemoglobin A1c Lactic Acid Calcium Prot Corrected Calcium Phosphorus Magnesium Total Bilirubin AST ALT Alkaline Phosphatase Ammonia Total Protein Albumin Urine Color Urine Clarity Urine pH Ur Specific [place] Urine Protein Urine Glucose (UA) Urine Ketones Urine Occult Blood Urine Nitrate Urine Bilirubin Urine Urobilinogen Ur Leukocyte Esterase Urine RBC Urine WBC Ur Squamous Epith Cells Urine Bacteria Hyaline Casts Urine Mucus Micro UA Comment Urine Culture Comments St C. diff Tox Epid 027 RPR C. difficile (PCR) 01/24/18 01/24/18 01/24/18 04:54 04:54 04:54 WBC 10.9 RBC 3.47 L Hgb 10.5 L Hct 32.3 L MCV 93.2 MCH 30.4 MCHC 32.6 RDW 14.6 Plt Count 196 MPV 8.9 Neut % (Auto) 83.3 H Lymph % (Auto) 7.1 L [place] % (Auto) 9.3 H Eos % (Auto) 0.0 Baso % (Auto) 0.3 Neut # (Auto) 9.1 H Lymph # (Auto) 0.8 L [place] # (Auto) 1.0 H Eos # (Auto) 0.0 Baso # (Auto) 0.0 WBC Differential . Differential Comment Auto diff final Sodium Potassium Chloride Carbon Dioxide Anion Gap BUN Creatinine Estimated GFR POC Glucose Random Glucose Hemoglobin A1c Lactic Acid 0.7 Calcium Prot Corrected Calcium Phosphorus Magnesium Total Bilirubin AST ALT Alkaline Phosphatase Ammonia 43 H Total Protein Albumin Urine Color Urine Clarity Urine pH Ur Specific [place] Urine Protein Urine Glucose (UA) Urine Ketones Urine Occult Blood Urine Nitrate Urine Bilirubin Urine Urobilinogen Ur Leukocyte Esterase Urine RBC Urine WBC Ur Squamous Epith Cells Urine Bacteria Hyaline Casts Urine Mucus Micro UA Comment Urine Culture Comments St C. diff Tox Epid 027 RPR C. difficile (PCR) 01/24/18 07:14 WBC RBC Hgb Hct MCV MCH MCHC RDW Plt Count MPV Neut % (Auto) Lymph % (Auto) [place] % (Auto) Eos % (Auto) Baso % (Auto) Neut # (Auto) Lymph # (Auto) [place] # (Auto) Eos # (Auto) Baso # (Auto) WBC Differential Differential Comment Sodium 158 H* D Potassium 3.0 L Chloride 125 H D Carbon Dioxide 22.5 Anion Gap 11 BUN 14 Creatinine 0.72 Estimated GFR 79 L POC Glucose Random Glucose 109 H Hemoglobin A1c Lactic Acid Calcium 7.5 L Prot Corrected Calcium Phosphorus 1.6 L Magnesium 2.4 D Total Bilirubin 0.5 AST 33 ALT 20 Alkaline Phosphatase 156 H Ammonia Total Protein 6.1 L Albumin 2.7 L Urine Color Urine Clarity Urine pH Ur Specific [place] Urine Protein Urine Glucose (UA) Urine Ketones Urine Occult Blood Urine Nitrate Urine Bilirubin Urine Urobilinogen Ur Leukocyte Esterase Urine RBC Urine WBC Ur Squamous Epith Cells Urine Bacteria Hyaline Casts Urine Mucus Micro UA Comment Urine Culture Comments St C. diff Tox Epid 027 RPR C. difficile (PCR) Microbiology 01/22/18 01:20 Catheterized Urine Urine Culture - Final Escherichia coli 01/23/18 11:08 Stool Stool Occult Blood (JALEN) - Final Hemoccult positive - Imaging Impressions Head MRI 01/23/18 09:17 CONCLUSION: 1. No acute abnormality. 2. Atrophy. - Procedures NONE Assessment and Plan - Plan Suspected overdose Toxic encephalopathy = Patient reportedly overdosed on 36 tablets of Unisom over the past week Placed on normal saline at 100 mL/h. Avoid sedating medications Order EEG.--WAS REFUSED BY PATINENT Seizure disorder. Will check EEG. Hypothyroidism. On replacement. Will check TSH. COPD. Duo nebs as needed. Chronic back pain. Patient is on high-dose narcotic pain meds at home. Hold narcotic meds for now. Hypokalemia will replace and recheck in a.m.-we will replace again with IV Hypernatremia will switch IV fluids around--will replace again Hypomagnesia will replace and recheck in a.m.-- hypophosphatemia- monitor and replace CONSULT PSYCHIATRY PT AND OT ST MAY NEED SNF VS INPATIENT PSYCHIATRY AM LABS MAKE FULL ADMIT REPLACE POTASSIUM REPLACE MAGNESIUM AM LABS PALLIATIVE CARE CONSULT NGT VS DOBBHOFF IF NOT ABLE TO EAT SOON Code Status: FULL CODE Discussed Condition With: RN AND PT AND CM Discharge Planning: SNF VS INPATIENT PSYCHIATRY
[2018-01-24] MEDS: Folic Acid 1 MG Tablet PO SCH (13:15)
[2018-01-24] MEDS: Multivitamin/Minerals Therapeutic Tablet PO SCH (13:20)
[2018-01-24] MEDS: Potassium Chlor 20 mEq Premix 20 MEQ/100 ML PIGGYBACK IV.SIG SCH ×4 (13:55→23:50)
[2018-01-24] MEDS: Dextrose 5% in Water Inj 1,000 ML IV.CONT SCH ×2 (17:52→21:10)
--- NOTE | 2018-01-24 18:56 | P.PNPAL ---
Reason for Visit Reason for visit: a. To assist with evaluation and management of symptoms including: Confusion, dysphasia b. To assist medical decision maker(s) with: better understanding of current medical conditions; weighing benefits/burdens of medical treatment options; making medical treatment decisions. Subjective Subjective/Interval History: Patient seen today for medically necessary visit follow-up on symptoms of confusion and dysphasia and goals of medical treatment. She still remains confused but less tardive dyskinesia and seen yesterday. She is calling for her mother but her speech is improved and more clear today. She does not appear to be hallucinating as she was yesterday. She is not oriented to place, time or purpose. She does know her name today. She states she has to "go home because it is dark". Reminded her that she was in the hospital but received no response to that. She does not focus on the speaker or consistently follow commands. She was seen again by speech therapy today who notes she continues to have severe confusion, partial lethargy, unable to consistently follow commands with variable mentation. Tardive dyskinesia at that evaluation with labial puffing and constant jaw movement resulted in severely impaired bolus control. She was not triggering swallow consistently and majority of the bolus spilled anteriorly. She demonstrated wet cough with trials of thin liquid honey thick liquid and pured. She remains n.p.o. family at this time wishes to avoid placing an NG tube if at all possible. . Family/Friend Interactions: Spoke with patients daughterDarlene regarding patient's condition and gave update regarding patient's clinical condition and progress. Reviewed UA results with daughter. Daughter states that the family wishes her to be a FULL CODE. They state that at baseline she is alert and oriented and able to walk however has frequent falls, so someone always walks with her to prevent falls. Darlene stated that her mother's feet look entirely different than they do at home and are never curled as they are at this time. She is presuming that this is a residual effect from the overdose of diphenhydramine with the hope that this will resolve as her hospital course progresses. She believes her father does have some advanced directive paperwork, which he is trying to retrieve from the bilingual receptionist. We reviewed [place] statutes hierarchy of decision-makers noting that the would be the first decision-maker and if he were unable or unwilling this would default to the majority of her adult children without a completed healthcare surrogate being located. Palliative care contact information was provided future contact. . Objective Vital Signs: Vital Signs 01/24/18 00:00 01/24/18 04:00 01/24/18 07:47 Temperature 98.7 F 99.1 F 98.1 F Pulse Rate 75 116 H 104 H Respiratory Rate 19 18 18 Blood Pressure 110/68 116/62 119/85 Pulse Oximetry 94 L 92 L 93 L 01/24/18 12:00 01/24/18 15:53 Temperature 99.4 F 99.7 F H Pulse Rate 100 H 98 H Respiratory Rate 18 20 Blood Pressure 143/58 H 127/75 Pulse Oximetry 96 92 L Intake & Output 01/23/18 01/24/18 01/24/18 18:59 06:59 18:59 Intake Total 369 / 369 3688 / 3688 100 / 100 Balance 369 / 369 3688 / 3688 100 / 100 Intake: IV 369 / 369 3688 / 3688 100 / 100 NS Inj 1,000 ML @ 100 mls/hr IV 3000 / 3000 .CONT .Q10H JOSEPH Rx#:[id number] Zovirax Inj 450 MG In NS Inj 109 / 109 218 / 218 100 ML @ 109 mls/hr IV.SIG Q8H JOSEPH Rx#:[id number] Magnesium Sulfate Inj 2 GM In 100 / 100 NS Inj 96 ML @ 50 mls/hr IV.SIG ONCE ONE Rx#:[id number] Zosyn 3.375 GM Premix 50 ML @ 50 / 50 50 / 50 100 mls/hr IV.SIG Q8H JOSEPH Rx#: [id number] KCl 20 mEq Premix Inj 20 meq In 100 / 100 100 ml @ 50 mls/hr IV.SIG Q2H JOSEPH Rx#:[id number] KCl Inj 20 MEQ In NS Inj 100 ML 110 / 110 220 / 220 @ 50 mls/hr IV.SIG Q2H JOSEPH Rx# :[id number] Flagyl 500 MG Inj 100 ML @ 100 200 / 200 0 / 0 mls/hr IV.SIG Q8H JOSEPH Rx#: [id number] Other: # Voids 3 Date of Last Bowel Movement 01/23/18 # Bowel Movements 3 Physical Exam: CONSTITUTIONAL/GENERAL: This is an elderly, cachectic female, lying in bed confused, no acute distress. TUBES/LINES/DRAINS: PIV. SKIN: No jaundice, rashes, or lesions. Ecchymoses on upper extremities. No wounds seen anteriorly. Skin temperature appropriate. Not diaphoretic. HEAD: Atraumatic. Normocephalic. EYES: Pupils equal and round and reactive. Extraocular motions intact. No scleral icterus. No injection or drainage. Fundi not examined. ENT: Hearing grossly normal. Nose without bleeding or purulent drainage. Throat without visible erythema, exudates, masses, or lesions. CARDIOVASCULAR: Regular rate and rhythm with 2/6 systolic ejection murmur, without gallops, or rubs. No JVD. Peripheral pulses symmetric. RESPIRATORY/CHEST: Symmetric, unlabored respirations. Clear, diminished to auscultation. Breath sounds equal bilaterally. No wheezes, rales, or rhonchi. GASTROINTESTINAL: Abdomen soft, non-tender, nondistended. No hepato-splenomegaly , or palpable masses. No guarding. Bowel sounds present. GENITOURINARY: Without palpable bladder distension. Otoole catheter in place. MUSCULOSKELETAL: Extremities without clubbing, cyanosis, or edema. No joint tenderness or effusion noted. No calf tenderness. No mottling or clubbing. NEUROLOGICAL: Awake, confused, can tell me her name, moves all extremities spontaneously, not to command. Less dyskinesia after Ativan. Not oriented to time, place or purpose. PSYCHIATRIC: Calmer after receiving Ativan. . Diagnostic Tests Laboratory: Laboratory Results - last 72 hr 01/21/18 01/21/18 01/21/18 23:55 23:59 23:59 WBC 13.1 H RBC 4.03 Hgb 12.2 Hct 36.7 MCV 91.1 MCH 30.2 MCHC 33.1 RDW 14.3 Plt Count 209 MPV 9.6 Neut % (Auto) 89.4 H Lymph % (Auto) 3.8 L Titus % (Auto) 6.7 Eos % (Auto) 0.0 Baso % (Auto) 0.1 Neut # (Auto) 11.7 H Lymph # (Auto) 0.5 L Titus # (Auto) 0.9 Eos # (Auto) 0.0 Baso # (Auto) 0.0 WBC Differential . Differential Comment Auto diff final ESR PT 11.4 INR 1.1 APTT 27.1 Sodium Potassium Chloride Carbon Dioxide Anion Gap BUN Creatinine Estimated GFR POC Glucose Random Glucose Hemoglobin A1c Lactic Acid Calcium Prot Corrected Calcium Phosphorus Magnesium Total Bilirubin AST ALT Alkaline Phosphatase Ammonia 31 Total Creatine Kinase CK-MB (CK-2) CK-MB (CK-2) % Troponin I C-Reactive Protein Total Protein Albumin Vitamin B12 TSH Free T4 Urine Color Urine Clarity Urine pH Ur Specific Lindsay Urine Protein Urine Glucose (UA) Urine Ketones Urine Occult Blood Urine Nitrate Urine Bilirubin Urine Urobilinogen Ur Leukocyte Esterase Urine RBC Urine WBC Ur Squamous Epith Cells Urine Bacteria Hyaline Casts Urine Mucus Micro UA Comment Ur Microscopic Review Urine Culture Comments St C. diff Tox Epid 027 Salicylates Urine Opiates Screen Acetaminophen Ur Barbiturates Screen Ur Amphetamines Screen U Benzodiazepines Scrn Urine Cocaine Screen U Cannabinoids Screen Serum Alcohol RPR C. difficile (PCR) 01/21/18 01/21/18 01/21/18 23:59 23:59 23:59 WBC RBC Hgb Hct MCV MCH MCHC RDW Plt Count MPV Neut % (Auto) Lymph % (Auto) Titus % (Auto) Eos % (Auto) Baso % (Auto) Neut # (Auto) Lymph # (Auto) Titus # (Auto) Eos # (Auto) Baso # (Auto) WBC Differential Differential Comment ESR PT INR APTT Sodium 138 Potassium 3.5 Chloride 102 Carbon Dioxide 24.9 Anion Gap 11 BUN 8 Creatinine 0.84 Estimated GFR 66 L POC Glucose Random Glucose 106 Hemoglobin A1c Lactic Acid Calcium 7.4 L* Prot Corrected Calcium 7.5 L Phosphorus Magnesium Total Bilirubin 0.7 AST 25 ALT 16 Alkaline Phosphatase 220 H Ammonia Total Creatine Kinase 331 H CK-MB (CK-2) 5.4 H CK-MB (CK-2) % 1.6 Troponin I Less than 0.02 L C-Reactive Protein Total Protein 6.9 Albumin 3.2 L Vitamin B12 TSH 1.040 1.030 Free T4 Urine Color Urine Clarity Urine pH Ur Specific Lindsay Urine Protein Urine Glucose (UA) Urine Ketones Urine Occult Blood Urine Nitrate Urine Bilirubin Urine Urobilinogen Ur Leukocyte Esterase Urine RBC Urine WBC Ur Squamous Epith Cells Urine Bacteria Hyaline Casts Urine Mucus Micro UA Comment Ur Microscopic Review Urine Culture Comments St C. diff Tox Epid 027 Salicylates Less than 1.7 L Urine Opiates Screen Acetaminophen Less than 2.0 L Ur Barbiturates Screen Ur Amphetamines Screen U Benzodiazepines Scrn Urine Cocaine Screen U Cannabinoids Screen Serum Alcohol Less than 3 RPR C. difficile (PCR) 01/22/18 01/22/18 01/22/18 01:20 01:20 10:57 WBC RBC Hgb Hct MCV MCH MCHC RDW Plt Count MPV Neut % (Auto) Lymph % (Auto) Titus % (Auto) Eos % (Auto) Baso % (Auto) Neut # (Auto) Lymph # (Auto) Titus # (Auto) Eos # (Auto) Baso # (Auto) WBC Differential Differential Comment ESR PT INR APTT Sodium Potassium Chloride Carbon Dioxide Anion Gap BUN Creatinine Estimated GFR POC Glucose Random Glucose Hemoglobin A1c Lactic Acid Calcium Prot Corrected Calcium Phosphorus Magnesium Total Bilirubin AST ALT Alkaline Phosphatase Ammonia Total Creatine Kinase CK-MB (CK-2) CK-MB (CK-2) % Troponin I C-Reactive Protein 5.57 H Total Protein Albumin Vitamin B12 353 TSH Free T4 Urine Color Yellow Urine Clarity Hazy H Urine pH 7.0 Ur Specific Lindsay 1.010 Urine Protein Negative Urine Glucose (UA) Negative Urine Ketones Negative Urine Occult Blood Negative Urine Nitrate Negative Urine Bilirubin Negative Urine Urobilinogen 2.0 H Ur Leukocyte Esterase Trace H Urine RBC Less than 1 Urine WBC 19 H Ur Squamous Epith Cells <1 Urine Bacteria Rare H Hyaline Casts 1 Urine Mucus Few H Micro UA Comment Cath-culture ind Ur Microscopic Review Not Reportable Urine Culture Comments Cath-cult indicated St C. diff Tox Epid 027 Salicylates Urine Opiates Screen Pos H Acetaminophen Ur Barbiturates Screen Neg Ur Amphetamines Screen Neg U Benzodiazepines Scrn Neg Urine Cocaine Screen Neg U Cannabinoids Screen Neg Serum Alcohol RPR C. difficile (PCR) 01/22/18 01/22/18 01/22/18 10:57 10:57 10:57 WBC RBC Hgb Hct MCV MCH MCHC RDW Plt Count MPV Neut % (Auto) Lymph % (Auto) Titus % (Auto) Eos % (Auto) Baso % (Auto) Neut # (Auto) Lymph # (Auto) Titus # (Auto) Eos # (Auto) Baso # (Auto) WBC Differential Differential Comment ESR 37 H PT INR APTT Sodium Potassium Chloride Carbon Dioxide Anion Gap BUN Creatinine Estimated GFR POC Glucose Random Glucose Hemoglobin A1c 5.1 Lactic Acid Calcium Prot Corrected Calcium Phosphorus Magnesium Total Bilirubin AST ALT Alkaline Phosphatase Ammonia Total Creatine Kinase CK-MB (CK-2) CK-MB (CK-2) % Troponin I C-Reactive Protein Total Protein Albumin Vitamin B12 TSH Free T4 Urine Color Urine Clarity Urine pH Ur Specific Lindsay Urine Protein Urine Glucose (UA) Urine Ketones Urine Occult Blood Urine Nitrate Urine Bilirubin Urine Urobilinogen Ur Leukocyte Esterase Urine RBC Urine WBC Ur Squamous Epith Cells Urine Bacteria Hyaline Casts Urine Mucus Micro UA Comment Ur Microscopic Review Urine Culture Comments St C. diff Tox Epid 027 Salicylates Urine Opiates Screen Acetaminophen Ur Barbiturates Screen Ur Amphetamines Screen U Benzodiazepines Scrn Urine Cocaine Screen U Cannabinoids Screen Serum Alcohol RPR Nonreactive C. difficile (PCR) 01/22/18 01/22/18 01/22/18 10:57 10:57 17:21 WBC RBC Hgb Hct MCV MCH MCHC RDW Plt Count MPV Neut % (Auto) Lymph % (Auto) Titus % (Auto) Eos % (Auto) Baso % (Auto) Neut # (Auto) Lymph # (Auto) Titus # (Auto) Eos # (Auto) Baso # (Auto) WBC Differential Differential Comment ESR PT INR APTT Sodium Potassium Chloride Carbon Dioxide Anion Gap BUN Creatinine Estimated GFR POC Glucose 86 Random Glucose Hemoglobin A1c Lactic Acid Calcium Prot Corrected Calcium Phosphorus Magnesium Total Bilirubin AST ALT Alkaline Phosphatase Ammonia Total Creatine Kinase CK-MB (CK-2) CK-MB (CK-2) % Troponin I C-Reactive Protein Total Protein Albumin Vitamin B12 TSH 0.642 Free T4 1.17 Urine Color Urine Clarity Urine pH Ur Specific Lindsay Urine Protein Urine Glucose (UA) Urine Ketones Urine Occult Blood Urine Nitrate Urine Bilirubin Urine Urobilinogen Ur Leukocyte Esterase Urine RBC Urine WBC Ur Squamous Epith Cells Urine Bacteria Hyaline Casts Urine Mucus Micro UA Comment Ur Microscopic Review Urine Culture Comments St C. diff Tox Epid 027 Salicylates Urine Opiates Screen Acetaminophen Ur Barbiturates Screen Ur Amphetamines Screen U Benzodiazepines Scrn Urine Cocaine Screen U Cannabinoids Screen Serum Alcohol RPR C. difficile (PCR) 01/22/18 01/23/18 01/23/18 23:35 08:10 08:10 WBC 10.5 RBC 3.43 L Hgb 10.5 L Hct 31.5 L MCV 91.7 MCH 30.6 MCHC 33.4 RDW 14.4 Plt Count 173 MPV 9.4 Neut % (Auto) 85.0 H Lymph % (Auto) 6.3 L Titus % (Auto) 8.5 H Eos % (Auto) 0.0 Baso % (Auto) 0.2 Neut # (Auto) 8.9 H Lymph # (Auto) 0.7 L Titus # (Auto) 0.9 Eos # (Auto) 0.0 Baso # (Auto) 0.0 WBC Differential . Differential Comment Auto diff final ESR PT 13.4 H INR 1.3 APTT Sodium Potassium Chloride Carbon Dioxide Anion Gap BUN Creatinine Estimated GFR POC Glucose 95 Random Glucose Hemoglobin A1c Lactic Acid Calcium Prot Corrected Calcium Phosphorus Magnesium Total Bilirubin AST ALT Alkaline Phosphatase Ammonia Total Creatine Kinase CK-MB (CK-2) CK-MB (CK-2) % Troponin I C-Reactive Protein Total Protein Albumin Vitamin B12 TSH Free T4 Urine Color Urine Clarity Urine pH Ur Specific Lindsay Urine Protein Urine Glucose (UA) Urine Ketones Urine Occult Blood Urine Nitrate Urine Bilirubin Urine Urobilinogen Ur Leukocyte Esterase Urine RBC Urine WBC Ur Squamous Epith Cells Urine Bacteria Hyaline Casts Urine Mucus Micro UA Comment Ur Microscopic Review Urine Culture Comments St C. diff Tox Epid 027 Salicylates Urine Opiates Screen Acetaminophen Ur Barbiturates Screen Ur Amphetamines Screen U Benzodiazepines Scrn Urine Cocaine Screen U Cannabinoids Screen Serum Alcohol RPR C. difficile (PCR) 01/23/18 01/23/18 01/23/18 08:10 09:35 11:08 WBC RBC Hgb Hct MCV MCH MCHC RDW Plt Count MPV Neut % (Auto) Lymph % (Auto) Titus % (Auto) Eos % (Auto) Baso % (Auto) Neut # (Auto) Lymph # (Auto) Titus # (Auto) Eos # (Auto) Baso # (Auto) WBC Differential Differential Comment ESR PT INR APTT Sodium 146 H Potassium 2.8 L* Chloride 113 H D Carbon Dioxide 19.6 L Anion Gap 13 BUN 12 Creatinine 0.74 Estimated GFR 76 L POC Glucose 103 Random Glucose 90 Hemoglobin A1c Lactic Acid Calcium 6.9 L* Prot Corrected Calcium 7.3 L* Phosphorus 1.6 L Magnesium 1.8 Total Bilirubin 0.5 AST 37 ALT 17 Alkaline Phosphatase 178 H Ammonia Total Creatine Kinase CK-MB (CK-2) CK-MB (CK-2) % Troponin I C-Reactive Protein Total Protein 6.3 L D Albumin 2.8 L Vitamin B12 TSH Free T4 Urine Color Urine Clarity Urine pH Ur Specific Lindsay Urine Protein Urine Glucose (UA) Urine Ketones Urine Occult Blood Urine Nitrate Urine Bilirubin Urine Urobilinogen Ur Leukocyte Esterase Urine RBC Urine WBC Ur Squamous Epith Cells Urine Bacteria Hyaline Casts Urine Mucus Micro UA Comment Ur Microscopic Review Urine Culture Comments St C. diff Tox Epid 027 Negative Salicylates Urine Opiates Screen Acetaminophen Ur Barbiturates Screen Ur Amphetamines Screen U Benzodiazepines Scrn Urine Cocaine Screen U Cannabinoids Screen Serum Alcohol RPR C. difficile (PCR) Negative 01/23/18 01/23/18 01/24/18 13:17 18:20 03:18 WBC RBC Hgb Hct MCV MCH MCHC RDW Plt Count MPV Neut % (Auto) Lymph % (Auto) Titus % (Auto) Eos % (Auto) Baso % (Auto) Neut # (Auto) Lymph # (Auto) Titus # (Auto) Eos # (Auto) Baso # (Auto) WBC Differential Differential Comment ESR PT INR APTT Sodium Potassium Chloride Carbon Dioxide Anion Gap BUN Creatinine Estimated GFR POC Glucose 124 H 112 H 116 H Random Glucose Hemoglobin A1c Lactic Acid Calcium Prot Corrected Calcium Phosphorus Magnesium Total Bilirubin AST ALT Alkaline Phosphatase Ammonia Total Creatine Kinase CK-MB (CK-2) CK-MB (CK-2) % Troponin I C-Reactive Protein Total Protein Albumin Vitamin B12 TSH Free T4 Urine Color Urine Clarity Urine pH Ur Specific Lindsay Urine Protein Urine Glucose (UA) Urine Ketones Urine Occult Blood Urine Nitrate Urine Bilirubin Urine Urobilinogen Ur Leukocyte Esterase Urine RBC Urine WBC Ur Squamous Epith Cells Urine Bacteria Hyaline Casts Urine Mucus Micro UA Comment Ur Microscopic Review Urine Culture Comments St C. diff Tox Epid 027 Salicylates Urine Opiates Screen Acetaminophen Ur Barbiturates Screen Ur Amphetamines Screen U Benzodiazepines Scrn Urine Cocaine Screen U Cannabinoids Screen Serum Alcohol RPR C. difficile (PCR) 01/24/18 01/24/18 01/24/18 04:54 04:54 04:54 WBC 10.9 RBC 3.47 L Hgb 10.5 L Hct 32.3 L MCV 93.2 MCH 30.4 MCHC 32.6 RDW 14.6 Plt Count 196 MPV 8.9 Neut % (Auto) 83.3 H Lymph % (Auto) 7.1 L Titus % (Auto) 9.3 H Eos % (Auto) 0.0 Baso % (Auto) 0.3 Neut # (Auto) 9.1 H Lymph # (Auto) 0.8 L Titus # (Auto) 1.0 H Eos # (Auto) 0.0 Baso # (Auto) 0.0 WBC Differential . Differential Comment Auto diff final ESR PT INR APTT Sodium Potassium Chloride Carbon Dioxide Anion Gap BUN Creatinine Estimated GFR POC Glucose Random Glucose Hemoglobin A1c Lactic Acid 0.7 Calcium Prot Corrected Calcium Phosphorus Magnesium Total Bilirubin AST ALT Alkaline Phosphatase Ammonia 43 H Total Creatine Kinase CK-MB (CK-2) CK-MB (CK-2) % Troponin I C-Reactive Protein Total Protein Albumin Vitamin B12 TSH Free T4 Urine Color Urine Clarity Urine pH Ur Specific Lindsay Urine Protein Urine Glucose (UA) Urine Ketones Urine Occult Blood Urine Nitrate Urine Bilirubin Urine Urobilinogen Ur Leukocyte Esterase Urine RBC Urine WBC Ur Squamous Epith Cells Urine Bacteria Hyaline Casts Urine Mucus Micro UA Comment Ur Microscopic Review Urine Culture Comments St C. diff Tox Epid 027 Salicylates Urine Opiates Screen Acetaminophen Ur Barbiturates Screen Ur Amphetamines Screen U Benzodiazepines Scrn Urine Cocaine Screen U Cannabinoids Screen Serum Alcohol RPR C. difficile (PCR) 01/24/18 07:14 WBC RBC Hgb Hct MCV MCH MCHC RDW Plt Count MPV Neut % (Auto) Lymph % (Auto) Titus % (Auto) Eos % (Auto) Baso % (Auto) Neut # (Auto) Lymph # (Auto) Titus # (Auto) Eos # (Auto) Baso # (Auto) WBC Differential Differential Comment ESR PT INR APTT Sodium 158 H* D Potassium 3.0 L Chloride 125 H D Carbon Dioxide 22.5 Anion Gap 11 BUN 14 Creatinine 0.72 Estimated GFR 79 L POC Glucose Random Glucose 109 H Hemoglobin A1c Lactic Acid Calcium 7.5 L Prot Corrected Calcium Phosphorus 1.6 L Magnesium 2.4 D Total Bilirubin 0.5 AST 33 ALT 20 Alkaline Phosphatase 156 H Ammonia Total Creatine Kinase CK-MB (CK-2) CK-MB (CK-2) % Troponin I C-Reactive Protein Total Protein 6.1 L Albumin 2.7 L Vitamin B12 TSH Free T4 Urine Color Urine Clarity Urine pH Ur Specific Lindsay Urine Protein Urine Glucose (UA) Urine Ketones Urine Occult Blood Urine Nitrate Urine Bilirubin Urine Urobilinogen Ur Leukocyte Esterase Urine RBC Urine WBC Ur Squamous Epith Cells Urine Bacteria Hyaline Casts Urine Mucus Micro UA Comment Ur Microscopic Review Urine Culture Comments St C. diff Tox Epid 027 Salicylates Urine Opiates Screen Acetaminophen Ur Barbiturates Screen Ur Amphetamines Screen U Benzodiazepines Scrn Urine Cocaine Screen U Cannabinoids Screen Serum Alcohol RPR C. difficile (PCR) Result Diagrams: 01/24/18 04:54 01/24/18 07:14 Microbiology: Microbiology 01/22/18 01:20 Urine Culture - Final Catheterized Urine Escherichia coli 01/23/18 11:08 Stool Occult Blood (JALEN) - Final Stool Hemoccult positive Assessment and Plan Pertinent Non-Medical Issues: Psychosocial: Patient was born in [place] and moved to [place] many years ago. She raised 8 children, 7 of home remain alive. 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 She and her reside with their son for support. Spiritual: Credit Control Manager available. Legal: No advance directives completed. Ethical issues impacting care: None noted. . Important Contacts: Turner Son Jasbir Daughter Christi . Prognosis: Her prognosis is guarded. She is 77 with multiple medical issues to include COPD hypothyroidism pain, hypertension, seizure disorder and encephalopathy with increasingly frequent ED visits. She has chronic nutrition and electrolyte derangements and is in chronic pain. While she has no terminal disease, she has progressively worsening debility and is at risk for continued decline, hospitalizations and complications. . Code Status: Full Code Plan: PLAN: Legal decision maker: Patient is not capacitated to make her own decisions. Per [place] statutes, her will serve as her decision-maker, supported by her children. No prior healthcare surrogate's or living will are available. Goals: To be determined CODE STATUS: FULL CODE by default SYMPTOMS: * Confusion: At this time she does appear to be oriented to self. She can tell me her name. She had reportedly taken a very large number of Unisom tablets ( diphenhydramine) over the prior week. Her son states she has a paradoxical reaction to medications. Family's wish is to continue to monitor for now to see if she regains her baseline mentation. She has Haldol and Ativan available as needed. She has required Ativan today due to agitation. * Dysphasia: She is currently an n.p.o. status secondary to failing speech evaluation and showing clear signs of aspiration with all thicknesses. She remains on IV hydration. Family wishes to avoid placement of an NG tube if at all possible and hope for her recovery soon enough to avoid that. Palliative care will continue to follow the patient during hospital course as condition evolves, to assist patient/decision-maker with understanding of their medical conditions, weighing benefits/burdens of treatment options, for clarification of goals of treatment. Additionally will assist with any symptoms of palliative concern. . Attestation Attestation: To help prompt me to consider important information that might be impacting today's encounter and assessment, information from prior notes written by myself or my colleagues may have been "brought forward" into today's note. My signature on this note, however, is an attestation that I personally performed the exam, history, and/or decision-making noted today, and, unless otherwise indicated, the interactions with patient, family, and staff as well as the review of records all occurred today. I also attest that the listed assessment and stated plan reflect my best clinical judgment today based on the combination of historical information, prior notes, and today's exam/ interactions. When time spent is documented, it refers only to time spent today by the signer, or if indicated, combined time spent today by collaborating physician/nurse practitioner. .
[2018-01-25] MEDS: Dextrose 5% in Water Inj 1,000 ML IV.CONT SCH (06:58)
[2018-01-25] MEDS: ACYCLOVIR IV.SIG SCH (06:59)
[2018-01-25] MEDS: SODIUM CHLOR 0.9% IV.SIG SCH (06:59)
[2018-01-25] MEDS: Levothyroxine 50 MCG Tablet PO SCH (07:02)
--- NOTE | 2018-01-25 08:21 | P.PNNEU ---
Subjective Subjective Comments: No acute events. Denies any headache chest pain focal weakness Active Medications: Active Medications Acetaminophen (Tylenol Supp) 650 mg RECTAL Q6H PRN PRN Reason: FEVER Last Admin: 01/23/18 15:27 Dose: 650 mg Al Hydroxide/Mg Hydroxide (Milk Of Magnesia Liq) 30 ml PO Q12H PRN PRN Reason: Mild Constipation Albuterol (Duoneb Neb (Prn)) 1 ampul NEB Q2HR NEB PRN PRN Reason: SHORTNESS OF BREATH Bisacodyl (Dulcolax Supp) 10 mg RECTAL DAILY PRN PRN Reason: SEVERE CONSITIPATION Clonidine HCl (Catapres) 0.1 mg PO Q6H PRN PRN Reason: For SBP >/= 180, DBP >/= 100 Flumazenil (Romazecon Inj) 0.2 mg IV.PUSH Q1M PRN PRN Reason: OVERSEDATION Folic Acid (Folic Acid) 1 mg PO DAILY [facility] Stop: 01/27/18 16:29 Last Admin: 01/24/18 13:15 Dose: Not Given Haloperidol Lactate (Haldol Inj) 1 mg IV.PUSH Q15M PRN PRN Reason: for severe agitation Last Admin: 01/23/18 11:32 Dose: 1 mg Piperacillin/Tazobactam/Dextrose (Zosyn 3.375 Gm Premix) 50 mls @ 100 mls/hr IV.SIG Q8H [facility] Last Infusion: 01/25/18 00:31 Dose: Infused Metronidazole/Sodium Chloride (Flagyl 500 Mg Inj) 100 mls @ 100 mls/hr IV.SIG Q8H [facility] Last Admin: 01/25/18 06:57 Dose: 100 mls/hr Acyclovir Sodium 450 mg/ (Sodium Chloride) 109 mls @ 109 mls/hr IV.SIG Q12H [facility] Last Infusion: 01/25/18 07:52 Dose: Infused Dextrose (D5w Inj) 1,000 mls @ 100 mls/hr IV.CONT .Q10H [facility] Last Infusion: 01/25/18 07:53 Dose: 100 mls/hr Lactulose (Lactulose Liq) 30 ml PO DAILY PRN PRN Reason: SEVERE CONSITIPATION Lactulose (Lactulose Liq) 30 ml PO QID [facility] Last Admin: 01/24/18 21:07 Dose: Not Given Levothyroxine Sodium (Synthroid) 50 mcg PO DAILY@0600 [facility] Last Admin: 01/25/18 07:02 Dose: Not Given Lorazepam (Ativan) 1 mg PO Q4H PRN PRN Reason: for CIWA 8-10 Last Admin: 01/23/18 05:01 Dose: 1 mg Lorazepam (Ativan) 2 mg PO Q2H PRN PRN Reason: for CIWA 11-14 Lorazepam (Ativan Inj) 2 mg IV.PUSH Q2H PRN PRN Reason: for CIWA 11-14 Last Admin: 01/24/18 03:00 Dose: 2 mg Lorazepam (Ativan Inj) 2 mg IV.PUSH Q1H PRN PRN Reason: for CIWA 15-20 Lorazepam (Ativan Inj) 2 mg IV.PUSH Q15M PRN PRN Reason: for CIWA > 20 Lorazepam (Ativan Inj) 1 mg IV.PUSH Q4H PRN PRN Reason: for CIWA 8-10 Last Admin: 01/22/18 17:56 Dose: 1 mg Multivitamins/Minerals (Theragran-M) 1 tab PO DAILY [facility] Stop: 01/27/18 16:29 Last Admin: 01/24/18 13:20 Dose: Not Given Ondansetron HCl (Zofran Inj) 4 mg IV.PUSH Q6H PRN PRN Reason: NAUSEA OR VOMITING Pantoprazole Sodium (Protonix) 40 mg PO DAILY [facility] Last Admin: 01/24/18 13:16 Dose: Not Given Sennosides (Senokot) 17.2 mg PO Q12H PRN PRN Reason: Moderate Constipation Sodium Chloride (Ns Flush) 2 ml IV.FLUSH PRN PRN PRN Reason: FLUSH AFTER USING IV ACCESS Thiamine HCl (Vitamin B1) 100 mg PO DAILY [facility] Last Admin: 01/24/18 13:19 Dose: Not Given Allergies/Adverse Reactions: Allergies Allergy/AdvReac Type Severity Reaction Status Date / Time pentazocine Allergy Severe Hallucinati Verified 01/22/18 04:04 ons promethazine Allergy Severe Restlessnes Verified 01/22/18 04:04 s Review of Systems All other systems reviewed negative except as stated in HPI Physical Exam Vital signs: Vital Signs 01/24/18 12:00 01/24/18 15:53 01/24/18 20:00 Temperature 99.4 F 99.7 F H 99.1 F Pulse Rate 100 H 98 H 101 H Respiratory Rate 18 20 17 Blood Pressure 143/58 H 127/75 144/78 H Pulse Oximetry 96 92 L 96 01/25/18 00:00 01/25/18 04:00 01/25/18 07:11 Temperature 99.1 F 98.2 F Pulse Rate 98 H 94 H 97 H Respiratory Rate 17 17 Blood Pressure 121/80 129/77 Pulse Oximetry 96 95 Intake & Output 01/24/18 01/25/18 01/25/18 18:59 06:59 18:59 Intake Total 600 / 600 1750 / 1750 109 / 109 Balance 600 / 600 1750 / 1750 109 / 109 Intake: IV 100 / 100 1750 / 1750 109 / 109 Zovirax Inj 450 MG In NS Inj 109 / 109 100 ML @ 109 mls/hr IV.SIG Q12H [facility] Rx#:[id number] Zosyn 3.375 GM Premix 50 ML @ 100 / 100 100 mls/hr IV.SIG Q8H [facility] Rx#: [id number] KCl 20 mEq Premix Inj 20 meq In 100 / 100 300 / 300 100 ml @ 50 mls/hr IV.SIG Q2H [facility] Rx#:[id number] Flagyl 500 MG Inj 100 ML @ 100 0 / 0 200 / 200 mls/hr IV.SIG Q8H [facility] Rx#: [id number] Oral 500 / 500 0 / 0 Other: # Urine Diapers 1 Narrative: GENERAL: Patient lying in bed. Appears comfortable. SKIN: Warm and dry. HEAD: Atraumatic. Normocephalic. EYES: Pupils equal and round. No scleral icterus. No injection or drainage. ENT: No nasal bleeding or discharge. Mucous membranes pink and moist. NECK: Trachea midline. No JVD. CARDIOVASCULAR: Regular rate and rhythm. RESPIRATORY: No accessory muscle use. Clear to auscultation. Breath sounds equal bilaterally. GASTROINTESTINAL: Abdomen soft, non-tender, nondistended. Hepatic and splenic margins not palpable. MUSCULOSKELETAL: Extremities without clubbing, cyanosis, or edema. No obvious deformities. NEUROLOGICAL: More awake and alert but can drift back to sleep. Oriented 2 follows no tremors no facial asymmetry visual barros grossly full blink to threat, no drift PSYCHIATRIC: Calm pleasant - Constitutional no acute distress - Routine HEENT Exam Head: Present: normocephalic Objective Laboratory Results - last 24 hr 01/24/18 07:14 Sodium 158 H* D Potassium 3.0 L Chloride 125 H D Carbon Dioxide 22.5 Anion Gap 11 BUN 14 Creatinine 0.72 Estimated GFR 79 L Random Glucose 109 H Calcium 7.5 L Phosphorus 1.6 L Magnesium 2.4 D Total Bilirubin 0.5 AST 33 ALT 20 Alkaline Phosphatase 156 H Total Protein 6.1 L Albumin 2.7 L Microbiology 01/22/18 01:20 Urine Culture - Final Catheterized Urine Escherichia coli Review/Management - Diagnosis (1) Acute encephalopathy Code(s): G93.40 - Encephalopathy, unspecified Status: Acute Current Visit: Yes (2) Altered mental status Code(s): R41.82 - Altered mental status, unspecified Status: Acute Current Visit: Yes (3) Acute drug overdose Code(s): T50.901A - Poisoning by unspecified drugs, medicaments and biological substances, accidental (unintentional), initial encounter Status: Acute Current Visit: Yes - Review/Management Plan: Oral buccal dyskinesias, encephalopathy likely related to excessive medication intake and thus likely a drug-induced encephalopathy UA essentially negative. Mild leukocytosis Patient had a trial of IV Ativan EEG artifact no obvious seizure activity MRI brain did not show any acute stroke Recommendations Mental status much improved. Oriented 2 follows No tremulousness. Likely wearing off effect of Unisom We will DC IV acyclovir Therapy, and nutritional support Discharge planning the next couple days No driving Supervision over her medications at home may require home health care (2) Altered mental status Qualifiers: Altered mental status type: disorientation Qualified Code(s): R41.0 - Disorientation, unspecified (3) Acute drug overdose Qualifiers: Encounter type: initial encounter Injury intent: undetermined intent Qualified Code(s): T50.904A - Poisoning by unspecified drugs, medicaments and biological substances, undetermined, initial encounter
[2018-01-25] MEDS: Folic Acid 1 MG Tablet PO SCH (09:36)
[2018-01-25] MEDS: Multivitamin/Minerals Therapeutic Tablet PO SCH (09:36)
--- NOTE | 2018-01-25 12:48 | P.PNIM ---
Subjective Interval history: 77-year-old female with history of hypothyroidism, insomnia, chronic pain who presents with altered mental status. Patient appears to have internal stimuli. Family reports that she has had about 36 tablets of Unisom over the past week. Patient denies any pain, however is very distracted and with disjointed speech. Family not at bedside during exam, and history is obtained from chart review. 01-22 PATIENT REMAINS VERY CONFUSED HAVING LIP SMACKING MOVEMENTS NOT ABLE TO GIVE GOOD HISTORY NOT SURE IF THIS IS BASELINE OR DUE TO UNISOM DW RN AND PT AND PSYCHIATRY AM LAB 01-23 PATIENT STILL DOING LIP SMACKING MOVEMENTS NOT ABLE TO GET GOOD HISTORY MAKE FULL ADMIT CONSULT PALLIATIVE CARE REPLACE POTASSIUM AND MAGNESIUM DW RN AND CM 01-24 Patient remains quite altered at this time Has been seen by palliative care yesterday Not able to pass swallow eval yet Was given Ativan last night Had issues with heart rate was started on Lopressor Discussed with RN and patient encasement 01-25 much more ALERT ANSWERING QUESTIONS APPROPRIATELY NOT MOVING MUCH YET PASSED SWALLOW WITH PUREED AND THICKENED LIQUIDS INCREASE ACTIVITY WILL PROBABLY NEED SNF LABS STILL NOT AVAILABLE AM LABS Physical Exam Vital signs: Vital Signs 01/24/18 15:53 01/24/18 20:00 01/25/18 00:00 Temperature 99.7 F H 99.1 F 99.1 F Pulse Rate 98 H 101 H 98 H Respiratory Rate 20 17 17 Blood Pressure 127/75 144/78 H 121/80 Pulse Oximetry 92 L 96 96 01/25/18 04:00 01/25/18 07:11 01/25/18 08:37 Temperature 98.2 F 98.6 F Pulse Rate 94 H 97 H 70 Respiratory Rate 17 20 Blood Pressure 129/77 140/82 Pulse Oximetry 95 96 01/25/18 12:24 Temperature 97.9 F Pulse Rate 62 Respiratory Rate 20 Blood Pressure 140/62 Pulse Oximetry 98 Intake & Output 01/24/18 01/25/18 01/25/18 18:59 06:59 18:59 Intake Total 600 / 600 1750 / 1750 209 / 209 Balance 600 / 600 1750 / 1750 209 / 209 Weight 44.452 kg Intake: IV 100 / 100 1750 / 1750 209 / 209 Zovirax Inj 450 MG In NS Inj 109 / 109 100 ML @ 109 mls/hr IV.SIG Q12H [facility] Rx#:[id number] Zosyn 3.375 GM Premix 50 ML @ 100 / 100 100 mls/hr IV.SIG Q8H [facility] Rx#: [id number] KCl 20 mEq Premix Inj 20 meq In 100 / 100 300 / 300 100 ml @ 50 mls/hr IV.SIG Q2H [facility] Rx#:[id number] Flagyl 500 MG Inj 100 ML @ 100 0 / 0 200 / 200 100 / 100 mls/hr IV.SIG Q8H [facility] Rx#: [id number] Oral 500 / 500 0 / 0 Other: # Urine Diapers 1 Weight On Admission 44.452 kg Narrative: GENERAL: Patient lying in bed. Appears comfortable. SKIN: Warm and dry. HEAD: Atraumatic. Normocephalic. EYES: Pupils equal and round. No scleral icterus. No injection or drainage. ENT: No nasal bleeding or discharge. Mucous membranes pink and moist. NECK: Trachea midline. No JVD. CARDIOVASCULAR: Regular rate and rhythm. RESPIRATORY: No accessory muscle use. Clear to auscultation. Breath sounds equal bilaterally. GASTROINTESTINAL: Abdomen soft, non-tender, nondistended. Hepatic and splenic margins not palpable. MUSCULOSKELETAL: Extremities without clubbing, cyanosis, or edema. No obvious deformities. NEUROLOGICAL: More awake and alert but can drift back to sleep. Oriented 3 follows no tremors no facial asymmetry visual barros grossly full blink to threat, no drift PSYCHIATRIC: Calm pleasant Results - Labs CBC & Chem 7: 01/24/18 04:54 01/24/18 07:14 Laboratory Results - last 24 hr 01/25/18 08:23 POC Glucose 109 - Imaging Chest X-Ray 01/21/18 23:26 CONCLUSION: No acute cardiopulmonary disease demonstrated. Head CT 01/21/18 23:26 CONCLUSION: Motion degraded study. No acute abnormality demonstrated. . Head MRI 01/23/18 09:17 CONCLUSION: 1. No acute abnormality. 2. Atrophy. - Procedures NONE Assessment and Plan - Plan Suspected overdose Toxic encephalopathy = Patient reportedly overdosed on 36 tablets of Unisom over the past week Placed on normal saline at 100 mL/h. Avoid sedating medications Order EEG.--WAS REFUSED BY PATINENT Seizure disorder. Will check EEG. Hypothyroidism. On replacement. Will check TSH. COPD. Duo nebs as needed. Chronic back pain. Patient is on high-dose narcotic pain meds at home. Hold narcotic meds for now. Hypokalemia will replace and recheck in a.m.-we will replace again with IV Hypernatremia will switch IV fluids around--will replace again Hypomagnesia will replace and recheck in a.m.-- hypophosphatemia- monitor and replace CONSULT PSYCHIATRY PT AND OT ST MAY NEED SNF VS INPATIENT PSYCHIATRY AM LABS MAKE FULL ADMIT REPLACE POTASSIUM REPLACE MAGNESIUM AM LABS PALLIATIVE CARE CONSULT PASSED SWALLOW EVAL MUCH MORE ALERT TODAY NO CURRENT COMPLAINTS LABS STILL NOT DONE Code Status: FULL CODE Discussed Condition With: RN AND CM AND PT Discharge Planning: SNF VS INPATIENT PSYCHIATRY
[2018-01-25 13:51] LABS: Baso % (Auto) 0.4 % (0.0-2.0); Eos # (Auto) 0.1 th/mm3 (0.0-0.4); Eos % (Auto) 0.6 % (0.0-4.0); Hematocrit 34.1 % (35.0-46.0); Hemoglobin 11.3 gm/dL (11.6-15.3); Lymph % (Auto) 10.6 % (9.0-44.0); Mean Corpuscular HGB Conc 33.1 % (32.0-36.0); Mean Corpuscular Hemoglobin 30.3 pg (27.0-34.0); Mean Corpuscular Volume 91.7 fL (80.0-100.0); Mono # (Auto) 0.8 th/mm3 (0.0-0.9); Mono % (Auto) 8.5 % (0.0-8.0); Neut # (Auto) 7.9 th/mm3 (1.8-7.7); Neut % (Auto) 79.9 % (16.0-70.0); Platelet Count 191 th/mm3 (150-450); Red Blood Count 3.72 mil/mm3 (4.00-5.30); Red Cell Distribution Width 15.2 % (11.6-17.2); White Blood Count 9.9 th/mm3 (4.0-11.0)
[2018-01-25 14:38] LABS: Alanine Aminotransferase 19 U/L (10-53); Albumin 2.5 g/dL (3.4-5.0); Alkaline Phosphatase 129 U/L (45-117); Anion Gap 11 meq/L (5-15); Aspartate Aminotransferase 18 U/L (15-37); Blood Urea Nitrogen 11 mg/dL (7-18); Calcium 7.5 mg/dL (8.5-10.1); Carbon Dioxide 23.2 meq/L (21.0-32.0); Chloride 122 meq/L (98-107); Glomerular Filtration Rate Greater Than 89 mL/min (>89); Glucose,Random 111 mg/dL (74-106); Magnesium 2.1 mg/dL (1.5-2.5); Phosphorus 0.7 mg/dL (2.5-4.9); Total Protein 5.5 g/dL (6.4-8.2)
[2018-01-25 14:47] LABS: Potassium 2.7 meq/L (3.5-5.1); Sodium 156 meq/L (136-145)
[2018-01-25] MEDS ORDERED: Potassium Bicarbonate 25 MEQ Effervescent Tablet PO ONE ×3 (15:28→18:00)
[2018-01-25] MEDS: Piperacil/Tazo 3.375 GM Premix 50 ML IV.SIG SCH ×2 (15:43→22:42)
[2018-01-25] MEDS: KCL 20 mEq/Dextrose 5% Inj 1,000 ML IV.CONT SCH (16:19)
--- NOTE | 2018-01-25 17:12 | P.PNPAL ---
Reason for Visit Reason for visit: a. To assist with evaluation and management of symptoms including: Confusion, dyskinesias b. To assist medical decision maker(s) with: better understanding of current medical conditions; weighing benefits/burdens of medical treatment options; making medical treatment decisions. Subjective Subjective/Interval History: Patient seen to evaluate symptoms of confusion, dysphagia and assist in goals of medical treatment. She is much less confused today and able to answer questions appropriately. She is still very sleepy and dozes off during conversation. Her speech is much improved and now clear. She knows that she is at [facility], knows her name, states it is December and knows she is . No further dyskinetic movements are noted. No Ativan was required last evening. Her dysphagia has improved as well with improvement in dyskinesia and mental status. She passed her swallow evaluation today and has been cleared for honey consistency thickened liquids and pured food. Her speech is more understandable today. . Family/Friend Interactions: Spoke with patient's daughter, Christi, who does the healthcare communication for the family at the request of the father and the son. She manages several [employer]'s in the area and has more familiarity with medical knowledge. She states that they do not want a intermediate facility but they would be okay with home health. A previous home health company had sent in a nurse who was allergic to cats, which the family has several of, causing "great embarrassment to her parents, and she does not want them put through that again". She will accept [facility] at home as long as the nurses and staff sent to the home do not have issues with being around multiple cats. . Objective Vital Signs: Vital Signs 01/24/18 20:00 01/25/18 00:00 01/25/18 04:00 Temperature 99.1 F 99.1 F 98.2 F Pulse Rate 101 H 98 H 94 H Respiratory Rate 17 17 17 Blood Pressure 144/78 H 121/80 129/77 Pulse Oximetry 96 96 95 01/25/18 07:11 01/25/18 08:37 01/25/18 12:24 Temperature 98.6 F 97.9 F Pulse Rate 97 H 70 62 Respiratory Rate 20 20 Blood Pressure 140/82 140/62 Pulse Oximetry 96 98 Intake & Output 08/30/18 08/31/18 08/31/18 18:59 06:59 18:59 Intake Total 600 / 600 1750 / 1750 409 / 409 Balance 600 / 600 1750 / 1750 409 / 409 Weight 98 lb Intake: IV 100 / 100 1750 / 1750 409 / 409 Zovirax Inj 450 MG In NS Inj 109 / 109 100 ML @ 109 mls/hr IV.SIG Q12H JOSEPH Rx#:[id number] Zosyn 3.375 GM Premix 50 ML @ 100 / 100 100 / 100 100 mls/hr IV.SIG Q8H JOSEPH Rx#: [id number] KCl 20 mEq Premix Inj 20 meq In 100 / 100 300 / 300 100 ml @ 50 mls/hr IV.SIG Q2H JOSEPH Rx#:[id number] Flagyl 500 MG Inj 100 ML @ 100 0 / 0 200 / 200 200 / 200 mls/hr IV.SIG Q8H JOSEPH Rx#: [id number] Oral 500 / 500 0 / 0 Other: # Urine Diapers 1 Weight On Admission 98 lb Physical Exam: CONSTITUTIONAL/GENERAL: This is an elderly, cachectic female, lying in bed, in no acute distress. TUBES/LINES/DRAINS: PIV. SKIN: No jaundice, rashes, or lesions. Ecchymoses on upper extremities. No wounds seen anteriorly. Skin temperature appropriate. Not diaphoretic. HEAD: Atraumatic. Normocephalic. EYES: Pupils equal and round and reactive. Extraocular motions intact. No scleral icterus. No injection or drainage. Fundi not examined. ENT: Hearing grossly normal. Nose without bleeding or purulent drainage. Throat without visible erythema, exudates, masses, or lesions. NECK: Trachea midline. Supple, nontender. No palpable thyroid enlargement or nodularity. CARDIOVASCULAR: Regular rate and rhythm with 2/6 systolic ejection murmur, without gallops, or rubs. No JVD. Peripheral pulses symmetric. RESPIRATORY/CHEST: Symmetric, unlabored respirations. Clear, diminished to auscultation. Breath sounds equal bilaterally. No wheezes, rales, or rhonchi. GASTROINTESTINAL: Abdomen soft, non-tender, nondistended. No hepato-splenomegaly , or palpable masses. No guarding. Bowel sounds present. GENITOURINARY: Without palpable bladder distension. Otoole catheter in place. MUSCULOSKELETAL: Extremities without clubbing, cyanosis, or edema. No joint tenderness or effusion noted. No calf tenderness. No mottling or clubbing. LYMPHATICS: No palpable cervical or supraclavicular adenopathy. NEUROLOGICAL: Awake, oriented 3, no dyskinetic movements noted. Speech greatly improved. PSYCHIATRIC: Calm, lethargic. . Diagnostic Tests Laboratory: Laboratory Results - last 72 hr 01/22/18 01/22/18 01/22/18 01:20 10:57 10:57 WBC RBC Hgb Hct MCV MCH MCHC RDW Plt Count MPV Neut % (Auto) Lymph % (Auto) [place] % (Auto) Eos % (Auto) Baso % (Auto) Neut # (Auto) Lymph # (Auto) [place] # (Auto) Eos # (Auto) Baso # (Auto) WBC Differential Differential Comment PT INR Sodium Potassium Chloride Carbon Dioxide Anion Gap BUN Creatinine Estimated GFR POC Glucose Random Glucose Hemoglobin A1c 5.1 Lactic Acid Calcium Prot Corrected Calcium Phosphorus Magnesium Total Bilirubin AST ALT Alkaline Phosphatase Ammonia Total Protein Albumin Urine Color Yellow Urine Clarity Hazy H Urine pH 7.0 Ur Specific [place] 1.010 Urine Protein Negative Urine Glucose (UA) Negative Urine Ketones Negative Urine Occult Blood Negative Urine Nitrate Negative Urine Bilirubin Negative Urine Urobilinogen 2.0 H Ur Leukocyte Esterase Trace H Urine RBC Less than 1 Urine WBC 19 H Ur Squamous Epith Cells <1 Urine Bacteria Rare H Hyaline Casts 1 Urine Mucus Few H Micro UA Comment Cath-culture ind Urine Culture Comments Cath-cult indicated St C. diff Tox Epid 027 RPR Nonreactive C. difficile (PCR) 01/22/18 01/22/18 01/23/18 17:21 23:35 08:10 WBC 10.5 RBC 3.43 L Hgb 10.5 L Hct 31.5 L MCV 91.7 MCH 30.6 MCHC 33.4 RDW 14.4 Plt Count 173 MPV 9.4 Neut % (Auto) 85.0 H Lymph % (Auto) 6.3 L [place] % (Auto) 8.5 H Eos % (Auto) 0.0 Baso % (Auto) 0.2 Neut # (Auto) 8.9 H Lymph # (Auto) 0.7 L [place] # (Auto) 0.9 Eos # (Auto) 0.0 Baso # (Auto) 0.0 WBC Differential . Differential Comment Auto diff final PT INR Sodium Potassium Chloride Carbon Dioxide Anion Gap BUN Creatinine Estimated GFR POC Glucose 86 95 Random Glucose Hemoglobin A1c Lactic Acid Calcium Prot Corrected Calcium Phosphorus Magnesium Total Bilirubin AST ALT Alkaline Phosphatase Ammonia Total Protein Albumin Urine Color Urine Clarity Urine pH Ur Specific [place] Urine Protein Urine Glucose (UA) Urine Ketones Urine Occult Blood Urine Nitrate Urine Bilirubin Urine Urobilinogen Ur Leukocyte Esterase Urine RBC Urine WBC Ur Squamous Epith Cells Urine Bacteria Hyaline Casts Urine Mucus Micro UA Comment Urine Culture Comments St C. diff Tox Epid 027 RPR C. difficile (PCR) 01/23/18 01/23/18 01/23/18 08:10 08:10 09:35 WBC RBC Hgb Hct MCV MCH MCHC RDW Plt Count MPV Neut % (Auto) Lymph % (Auto) [place] % (Auto) Eos % (Auto) Baso % (Auto) Neut # (Auto) Lymph # (Auto) [place] # (Auto) Eos # (Auto) Baso # (Auto) WBC Differential Differential Comment PT 13.4 H INR 1.3 Sodium 146 H Potassium 2.8 L* Chloride 113 H D Carbon Dioxide 19.6 L Anion Gap 13 BUN 12 Creatinine 0.74 Estimated GFR 76 L POC Glucose 103 Random Glucose 90 Hemoglobin A1c Lactic Acid Calcium 6.9 L* Prot Corrected Calcium 7.3 L* Phosphorus 1.6 L Magnesium 1.8 Total Bilirubin 0.5 AST 37 ALT 17 Alkaline Phosphatase 178 H Ammonia Total Protein 6.3 L D Albumin 2.8 L Urine Color Urine Clarity Urine pH Ur Specific [place] Urine Protein Urine Glucose (UA) Urine Ketones Urine Occult Blood Urine Nitrate Urine Bilirubin Urine Urobilinogen Ur Leukocyte Esterase Urine RBC Urine WBC Ur Squamous Epith Cells Urine Bacteria Hyaline Casts Urine Mucus Micro UA Comment Urine Culture Comments St C. diff Tox Epid 027 RPR C. difficile (PCR) 01/23/18 01/23/18 01/23/18 11:08 13:17 18:20 WBC RBC Hgb Hct MCV MCH MCHC RDW Plt Count MPV Neut % (Auto) Lymph % (Auto) [place] % (Auto) Eos % (Auto) Baso % (Auto) Neut # (Auto) Lymph # (Auto) [place] # (Auto) Eos # (Auto) Baso # (Auto) WBC Differential Differential Comment PT INR Sodium Potassium Chloride Carbon Dioxide Anion Gap BUN Creatinine Estimated GFR POC Glucose 124 H 112 H Random Glucose Hemoglobin A1c Lactic Acid Calcium Prot Corrected Calcium Phosphorus Magnesium Total Bilirubin AST ALT Alkaline Phosphatase Ammonia Total Protein Albumin Urine Color Urine Clarity Urine pH Ur Specific [place] Urine Protein Urine Glucose (UA) Urine Ketones Urine Occult Blood Urine Nitrate Urine Bilirubin Urine Urobilinogen Ur Leukocyte Esterase Urine RBC Urine WBC Ur Squamous Epith Cells Urine Bacteria Hyaline Casts Urine Mucus Micro UA Comment Urine Culture Comments St C. diff Tox Epid 027 Negative RPR C. difficile (PCR) Negative 01/24/18 01/24/18 01/24/18 03:18 04:54 04:54 WBC 10.9 RBC 3.47 L Hgb 10.5 L Hct 32.3 L MCV 93.2 MCH 30.4 MCHC 32.6 RDW 14.6 Plt Count 196 MPV 8.9 Neut % (Auto) 83.3 H Lymph % (Auto) 7.1 L [place] % (Auto) 9.3 H Eos % (Auto) 0.0 Baso % (Auto) 0.3 Neut # (Auto) 9.1 H Lymph # (Auto) 0.8 L [place] # (Auto) 1.0 H Eos # (Auto) 0.0 Baso # (Auto) 0.0 WBC Differential . Differential Comment Auto diff final PT INR Sodium Potassium Chloride Carbon Dioxide Anion Gap BUN Creatinine Estimated GFR POC Glucose 116 H Random Glucose Hemoglobin A1c Lactic Acid 0.7 Calcium Prot Corrected Calcium Phosphorus Magnesium Total Bilirubin AST ALT Alkaline Phosphatase Ammonia Total Protein Albumin Urine Color Urine Clarity Urine pH Ur Specific [place] Urine Protein Urine Glucose (UA) Urine Ketones Urine Occult Blood Urine Nitrate Urine Bilirubin Urine Urobilinogen Ur Leukocyte Esterase Urine RBC Urine WBC Ur Squamous Epith Cells Urine Bacteria Hyaline Casts Urine Mucus Micro UA Comment Urine Culture Comments St C. diff Tox Epid 027 RPR C. difficile (PCR) 01/24/18 01/24/18 01/25/18 04:54 07:14 08:23 WBC RBC Hgb Hct MCV MCH MCHC RDW Plt Count MPV Neut % (Auto) Lymph % (Auto) [place] % (Auto) Eos % (Auto) Baso % (Auto) Neut # (Auto) Lymph # (Auto) [place] # (Auto) Eos # (Auto) Baso # (Auto) WBC Differential Differential Comment PT INR Sodium 158 H* D Potassium 3.0 L Chloride 125 H D Carbon Dioxide 22.5 Anion Gap 11 BUN 14 Creatinine 0.72 Estimated GFR 79 L POC Glucose 109 Random Glucose 109 H Hemoglobin A1c Lactic Acid Calcium 7.5 L Prot Corrected Calcium Phosphorus 1.6 L Magnesium 2.4 D Total Bilirubin 0.5 AST 33 ALT 20 Alkaline Phosphatase 156 H Ammonia 43 H Total Protein 6.1 L Albumin 2.7 L Urine Color Urine Clarity Urine pH Ur Specific [place] Urine Protein Urine Glucose (UA) Urine Ketones Urine Occult Blood Urine Nitrate Urine Bilirubin Urine Urobilinogen Ur Leukocyte Esterase Urine RBC Urine WBC Ur Squamous Epith Cells Urine Bacteria Hyaline Casts Urine Mucus Micro UA Comment Urine Culture Comments St C. diff Tox Epid 027 RPR C. difficile (PCR) 01/25/18 01/25/18 01/25/18 13:26 13:26 14:45 WBC 9.9 RBC 3.72 L Hgb 11.3 L Hct 34.1 L MCV 91.7 MCH 30.3 MCHC 33.1 RDW 15.2 Plt Count 191 MPV 9.0 Neut % (Auto) 79.9 H Lymph % (Auto) 10.6 [place] % (Auto) 8.5 H Eos % (Auto) 0.6 Baso % (Auto) 0.4 Neut # (Auto) 7.9 H Lymph # (Auto) 1.0 [place] # (Auto) 0.8 Eos # (Auto) 0.1 Baso # (Auto) 0.0 WBC Differential . Differential Comment Auto diff final PT INR Sodium 156 H* Potassium 2.7 L* Chloride 122 H Carbon Dioxide 23.2 Anion Gap 11 BUN 11 Creatinine 0.64 Estimated GFR Greater than 89 POC Glucose 106 Random Glucose 111 H Hemoglobin A1c Lactic Acid Calcium 7.5 L Prot Corrected Calcium Phosphorus 0.7 L Magnesium 2.1 Total Bilirubin 0.4 AST 18 ALT 19 Alkaline Phosphatase 129 H Ammonia Total Protein 5.5 L D Albumin 2.5 L Urine Color Urine Clarity Urine pH Ur Specific [place] Urine Protein Urine Glucose (UA) Urine Ketones Urine Occult Blood Urine Nitrate Urine Bilirubin Urine Urobilinogen Ur Leukocyte Esterase Urine RBC Urine WBC Ur Squamous Epith Cells Urine Bacteria Hyaline Casts Urine Mucus Micro UA Comment Urine Culture Comments St C. diff Tox Epid 027 RPR C. difficile (PCR) Result Diagrams: 01/25/18 13:26 01/25/18 13:26 Microbiology: Microbiology 01/22/18 01:20 Urine Culture - Final Catheterized Urine Escherichia coli 01/23/18 11:08 Stool Occult Blood (JALEN) - Final Stool Hemoccult positive Assessment and Plan Pertinent Non-Medical Issues: Psychosocial: Patient was born in [place] and moved to [place] many years ago. She raised 8 children, 7 of home remain alive. 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 She and her reside with their son for support. Spiritual: Pump Station [employer] available. Legal: No advance directives completed. Ethical issues impacting care: None noted. . Important Contacts: Turner Son Jasbir Daughter Christi . Prognosis: Her prognosis is guarded. She is 77 with multiple medical issues to include COPD hypothyroidism pain, hypertension, seizure disorder and encephalopathy with increasingly frequent ED visits. She has chronic nutrition and electrolyte derangements and is in chronic pain. While she has no terminal disease, she has progressively worsening debility and is at risk for continued decline, hospitalizations and complications. . Code Status: Full Code Plan: PLAN: Legal decision maker: Patient is not capacitated to make her own decisions. Per [place] statutes, her will serve as her decision-maker, supported by her children. No prior healthcare surrogate's or living will are available. Goals: To be determined CODE STATUS: FULL CODE by default SYMPTOMS: * Confusion: She is significantly improved in orientation today and appears to have worn off the effects of the Unisom. She is oriented to self with clearer speech and more able to make her needs known. Family wishes to take her home on discharge and is declining SNF. * Dysphasia: She has passed her swallow evaluation and has now been cleared for honey thickened liquids and pured diet. She remains lethargic and dozes off frequently however is able to take oral nutrition and medications. Palliative care will continue to follow the patient during hospital course as condition evolves, to assist patient/decision-maker with understanding of their medical conditions, weighing benefits/burdens of treatment options, for clarification of goals of treatment. Additionally will assist with any symptoms of palliative concern. . Attestation Attestation: To help prompt me to consider important information that might be impacting today's encounter and assessment, information from prior notes written by myself or my colleagues may have been "brought forward" into today's note. My signature on this note, however, is an attestation that I personally performed the exam, history, and/or decision-making noted today, and, unless otherwise indicated, the interactions with patient, family, and staff as well as the review of records all occurred today. I also attest that the listed assessment and stated plan reflect my best clinical judgment today based on the combination of historical information, prior notes, and today's exam/ interactions. When time spent is documented, it refers only to time spent today by the signer, or if indicated, combined time spent today by collaborating physician/nurse practitioner. .
[2018-01-26] MEDS: KCL 20 mEq/Dextrose 5% Inj 1,000 ML IV.CONT SCH ×4 (02:25→23:02)
[2018-01-26] MEDS: Piperacil/Tazo 3.375 GM Premix 50 ML IV.SIG SCH (06:07)
[2018-01-26] MEDS: Levothyroxine 50 MCG Tablet PO SCH (06:07)
[2018-01-26] MEDS: Multivitamin/Minerals Therapeutic Tablet PO SCH (09:00)
[2018-01-26] MEDS: Folic Acid 1 MG Tablet PO SCH (09:00)
[2018-01-26 09:44] LABS: Baso % (Auto) 0.3 % (0.0-2.0); Eos # (Auto) 0.3 th/mm3 (0.0-0.4); Eos % (Auto) 2.7 % (0.0-4.0); Hematocrit 32.4 % (35.0-46.0); Hemoglobin 10.7 gm/dL (11.6-15.3); Lymph % (Auto) 10.2 % (9.0-44.0); Mean Corpuscular HGB Conc 33.1 % (32.0-36.0); Mean Corpuscular Hemoglobin 30.7 pg (27.0-34.0); Mean Corpuscular Volume 92.6 fL (80.0-100.0); Mean Platelet Volume 8.9 fL (7.0-11.0); Mono # (Auto) 0.7 th/mm3 (0.0-0.9); Mono % (Auto) 7.1 % (0.0-8.0); Neut # (Auto) 7.9 th/mm3 (1.8-7.7); Neut % (Auto) 79.7 % (16.0-70.0); Platelet Count 189 th/mm3 (150-450); Red Cell Distribution Width 14.9 % (11.6-17.2); White Blood Count 9.9 th/mm3 (4.0-11.0)
--- NOTE | 2018-01-26 10:18 | P.PN ---
Subjective Interval history: Patient seen and examined this morning, their vitals are stable and the patient is afebrile. States her stomach hurt last night, feels better this morning. Eating crackers and gingerale. Endorse diarrhea, unsure if bloody or dark stools. Patient states she attempted to kill herself by taking the medication, states she feels bad, states she is worried that Bashir will not forgive her. Physical Exam Vital signs: Vital Signs 01/25/18 12:24 01/25/18 17:28 01/25/18 18:05 Temperature 97.9 F 98.2 F 98.2 F Pulse Rate 62 70 70 Respiratory Rate 20 20 20 Blood Pressure 140/62 123/83 123/80 Pulse Oximetry 98 98 96 01/25/18 20:00 01/25/18 22:05 01/26/18 00:00 Temperature 98.4 F 97.7 F 98 F Pulse Rate 110 H 107 H 95 H Respiratory Rate 16 16 16 Blood Pressure 111/68 139/83 132/80 Pulse Oximetry 94 L 100 100 01/26/18 04:00 01/26/18 07:00 01/26/18 08:00 Temperature 98 F 98.0 F Pulse Rate 96 H 95 H 103 H Respiratory Rate 16 16 Blood Pressure 130/81 119/75 Pulse Oximetry 100 98 01/26/18 08:27 Temperature Pulse Rate 77 Respiratory Rate Blood Pressure Pulse Oximetry Intake & Output 01/25/18 01/26/18 01/26/18 18:59 06:59 18:59 Intake Total 409 / 409 950 / 950 1570 / 1570 Balance 409 / 409 950 / 950 1570 / 1570 Weight 47.5 kg Intake: IV 409 / 409 950 / 950 150 / 150 Zovirax Inj 450 MG In NS Inj 109 / 109 100 ML @ 109 mls/hr IV.SIG Q12H JOSEPH Rx#:[id number] Zosyn 3.375 GM Premix 50 ML @ 100 / 100 50 / 50 50 / 50 100 mls/hr IV.SIG Q8H JOSEPH Rx#: [id number] Flagyl 500 MG Inj 100 ML @ 100 200 / 200 100 / 100 100 / 100 mls/hr IV.SIG Q8H JOSEPH Rx#: [id number] Oral 620 / 620 Other 800 / 800 Other: # Incontinent Voids 2 Date of Last Bowel Movement 01/25/18 01/25/18 # Bowel Movements 1 Narrative: GENERAL: Elderly female patient lying in bed. Appears comfortable. SKIN: Warm and dry. HEAD: Atraumatic. Normocephalic. EYES: Pupils equal and round. No scleral icterus. No injection or drainage. ENT: No nasal bleeding or discharge. Mucous membranes pink and moist. NECK: Trachea midline. No JVD. CARDIOVASCULAR: Regular rate and rhythm. RESPIRATORY: No accessory muscle use. Clear to auscultation. Breath sounds equal bilaterally. GASTROINTESTINAL: Abdomen soft, non-tender, nondistended. Hepatic and splenic margins not palpable. MUSCULOSKELETAL: Extremities without clubbing, cyanosis, or edema. No obvious deformities. NEUROLOGICAL: Awake and alert this morning, responds to questions appropriately. PSYCHIATRIC: Calm pleasant Results - Labs CBC & Chem 7: 01/26/18 08:38 01/26/18 08:38 Laboratory Results - last 24 hr 01/25/18 01/25/18 01/25/18 13:26 13:26 14:45 WBC 9.9 RBC 3.72 L Hgb 11.3 L Hct 34.1 L MCV 91.7 MCH 30.3 MCHC 33.1 RDW 15.2 Plt Count 191 MPV 9.0 Neut % (Auto) 79.9 H Lymph % (Auto) 10.6 [place] % (Auto) 8.5 H Eos % (Auto) 0.6 Baso % (Auto) 0.4 Neut # (Auto) 7.9 H Lymph # (Auto) 1.0 [place] # (Auto) 0.8 Eos # (Auto) 0.1 Baso # (Auto) 0.0 WBC Differential . Differential Comment Auto diff final Sodium 156 H* Potassium 2.7 L* Chloride 122 H Carbon Dioxide 23.2 Anion Gap 11 BUN 11 Creatinine 0.64 Estimated GFR Greater than 89 POC Glucose 106 Random Glucose 111 H Calcium 7.5 L Phosphorus 0.7 L Magnesium 2.1 Total Bilirubin 0.4 AST 18 ALT 19 Alkaline Phosphatase 129 H Total Protein 5.5 L D Albumin 2.5 L 01/25/18 01/26/18 01/26/18 21:57 07:55 08:38 WBC 9.9 RBC 3.50 L Hgb 10.7 L Hct 32.4 L MCV 92.6 MCH 30.7 MCHC 33.1 RDW 14.9 Plt Count 189 MPV 8.9 Neut % (Auto) 79.7 H Lymph % (Auto) 10.2 [place] % (Auto) 7.1 Eos % (Auto) 2.7 Baso % (Auto) 0.3 Neut # (Auto) 7.9 H Lymph # (Auto) 1.0 [place] # (Auto) 0.7 Eos # (Auto) 0.3 Baso # (Auto) 0.0 WBC Differential . Differential Comment Auto diff final Sodium Potassium Chloride Carbon Dioxide Anion Gap BUN Creatinine Estimated GFR POC Glucose 125 H 98 Random Glucose Calcium Phosphorus Magnesium Total Bilirubin AST ALT Alkaline Phosphatase Total Protein Albumin - Imaging ITS Impressions Chest X-Ray 01/21/18 23:26 CONCLUSION: No acute cardiopulmonary disease demonstrated. Head CT 01/21/18 23:26 CONCLUSION: Motion degraded study. No acute abnormality demonstrated. . Head MRI 01/23/18 09:17 CONCLUSION: 1. No acute abnormality. 2. Atrophy. - Procedures NONE Assessment and Plan - Plan In summary this is a 77-year-old female patient with a medical history that is significant for hypothyroidism, insomnia, chronic pain who presents to [facility] ED with altered mental status. Per ER report the patient had apparently taken 36 tablets of Unisom over the past week. Toxic encephalopathy Likely suspected overdose -Per review of EMR it appears the patient's mental status is slowly improving. She is on chronic narcotics and her medications have been held. The patient does have a seizure disorder and EEG was ordered. -Patient passed her swallow evaluation and has been cleared for honey thickened liquids and pured diet -Neurology was consulted: Patient had a trial of IV Ativan, EEG artifact no obvious seizure activity. DC IV acyclovir. No driving. Patient will require supervision of her medications. -MR brain did not show any acute stroke - Psych consulted: [facility] protocol, no psych admission is indicated. Patient admitted to [place] that she was attempting suicide. Will ask psych to re-evaluate patient. - patient on zosyn and flagyl, started 01/23, unclear why, patient without leukocytosis & fever, discussed with nurse she is unclear as well--> will stop these and transition to cipro for UTI UTI Urine culture significant for E. coli Cultures and sensitivities resulted, start cipro 250 mg BID x 3 days for simple UTI Hemoccult positive - GI consulted - also with diarrhea--> stop all lactulose and mag oxide Seizure disorder Hypothyroidism - cont synthroid 50 mg daily COPD Not an acute exacerbation, continue duo nebs as needed Chronic back pain Narcotics have been held, currently on a high-dose of pain medications Electrolyte disturbance - persistent Hypokalemia--> replace - Mg is stable - HyperNatremia improving, she is awake, encourage PO hydration Discharge Planning: Palliative care was consulted: Family wishes to take her home on discharge and is currently declining sniff. PT recommends rehab and occupational therapy. Will need to be re-evaluated by psych for D/C planning.
[2018-01-26 10:31] LABS: Albumin 2.3 g/dL (3.4-5.0); Calcium 7.1 mg/dL (8.5-10.1); Carbon Dioxide 22.8 meq/L (21.0-32.0); Magnesium 1.7 mg/dL (1.5-2.5); Phosphorus 0.4 mg/dL (2.5-4.9); Total Protein 5.4 g/dL (6.4-8.2)
[2018-01-26 10:48] LABS: Potassium 2.6 meq/L (3.5-5.1)
[2018-01-26] MEDS ORDERED: Potassium Bicarbonate 25 MEQ Effervescent Tablet PO ONE (11:45)
--- NOTE | 2018-01-26 12:05 | MB ---
cc: Maurizio Eaton MD DATE: 01/26/2018 TYPE OF CONSULTATION: GI consult. REASON FOR CONSULTATION: Hemoccult positive stool. HISTORY OF PRESENT ILLNESS: This is a 77-year-old female patient with multiple comorbid conditions including depression, hypothyroidism, previous history of gastric bypass surgery for weight reduction, who was admitted to the hospital with change in mental status secondary to possible drug overdose and currently being evaluated for this condition. During hospitalization, it was noted that her labs were showing evidence of mild anemia with indices suggestive of chronicity. She had a Hemoccult testing which came back positive. GI consulted for further evaluation and possible endoscopic evaluation. The patient herself is a poor historian, is still confused from the drug overdose. Denies at the current time any symptoms including dysphagia, epigastric pain and change in bowel habit. Denies any hematemesis. Denies any bleeding per rectum. At the current time, she does complain of nausea, but no vomiting. She denies any change in weight or appetite or any other associated symptoms. REVIEW OF SYSTEMS: All 14 point elements are negative other than the ones mentioned in the history of present illness. PAST MEDICAL HISTORY: Chronic obstructive pulmonary disease, chronic back pain, hypertension, hypothyroidism, seizure disorder, possible depression. PAST SURGICAL HISTORY: History of cholecystectomy, gastric bypass surgery 30 years ago. FAMILY HISTORY: Unremarkable. PSYCHOSOCIAL HISTORY: She lives with her son and daughter. Never smoked. No alcohol abuse. MEDICATIONS: Active medications include: 1. Dulcolax. 2. Milk of magnesia. 3. Lactulose. PHYSICAL EXAMINATION: GENERAL: The patient was found to be comfortable, not in pain or in distress, hemodynamically stable, VITAL SIGNS: Respiratory rate of 12, blood pressure of 130/85, pulse oximetry of 98%. HEAD AND NECK: Normocephalic, atraumatic. Pupils equal and reactive to light. NECK: Supple. No lymphadenopathy. No thyromegaly. CHEST: Clear to auscultation bilaterally. No crackles or wheezes. CARDIOVASCULAR: Regular rate and rhythm. No murmurs. ABDOMEN: Soft, nontender. No hepatosplenomegaly. Scar of previous surgery is noted. EXTREMITIES: Normal pulses. No edema. NEUROLOGIC: Difficult to assess. SKIN: No rashes. LABORATORY DATA: Showed most recent hemoglobin of 11.3, hematocrit 34.1, normal MCV, MCH. White count within normal limits. PT, PTT within normal limits. Chemistry showed a sodium of 156, potassium 2.6. ASSESSMENT AND PLAN: This is a 77-year-old female patient with the following conditions: 1. Normochromic, normocytic anemia. 2. Hemoccult positive stool. 3. No previous colonoscopic examination. 4. Status post gastric bypass surgery 30 years ago. 5. Currently with change in mental status and overdose. 6. Severe electrolyte abnormalities in the form of hypokalemia and hypernatremia and severe dehydration. 7. Possible palliative care management in the coming future. RECOMMENDATIONS: For the time being, the patient is not showing any evidence of active significant bleeding. The patient will need some endoscopic evaluation including upper endoscopy and a colonoscopy when she is more stable. At the current time, we will continue with current treatment plan, treatment of chronic constipation, which is difficult to obtain from this patient, but obtained from the chart. Continue aggressive hydration and electrolyte replacement. We will discuss the need for endoscopy when more stable and after discussing her code status and future management plan. For the time being, we will follow up with you periodically. Thank you for the consult. Maurizio Eaton MD GAMAL/ct , 11:19 AM , 11:29 AM
[2018-01-26 16:22] LABS: Anion Gap 11 meq/L (5-15); Blood Urea Nitrogen 5 mg/dL (7-18); Calcium 6.8 mg/dL (8.5-10.1); Carbon Dioxide 25.2 meq/L (21.0-32.0); Chloride 113 meq/L (98-107); Glomerular Filtration Rate Greater Than 89 mL/min (>89); Glucose,Random 143 mg/dL (74-106); Sodium 149 meq/L (136-145)
[2018-01-26 16:25] LABS: Potassium 2.6 meq/L (3.5-5.1)
[2018-01-26 16:37] LABS: Total Protein 5.2 g/dL (6.4-8.2)
[2018-01-26] MEDS: Potassium Chloride Inj 40 MEQ in Dextrose 5% in Water Inj 1,000 ML IV.CONT SCH ×2 (17:55)
[2018-01-26] MEDS: Ciprofloxacin 250 MG Tablet PO SCH (20:30)
[2018-01-27] MEDS: Potassium Chloride Inj 40 MEQ in Dextrose 5% in Water Inj 1,000 ML IV.CONT SCH ×6 (05:05→20:15)
[2018-01-27] MEDS: Levothyroxine 50 MCG Tablet PO SCH (05:05)
--- NOTE | 2018-01-27 08:26 | P.PN ---
Subjective Interval history: Patient seen and examined this morning, their vitals are stable and the patient is afebrile. States abdominal pain is much better after catheter placed. She denies feelings of sadness or hopelessness. She does not remember taking pills which is how she ended up in the hospital. Patient believes she is in the hospital for abdominal pain. Physical Exam Vital signs: Vital Signs 01/26/18 08:27 01/26/18 12:00 01/26/18 16:00 Temperature 98.3 F 96.0 F L Pulse Rate 77 91 H 91 H Respiratory Rate 15 16 Blood Pressure 118/72 113/76 Pulse Oximetry 98 97 01/26/18 20:00 01/27/18 00:00 01/27/18 00:26 Temperature 97.8 F 98.8 F Pulse Rate 102 H 105 H 95 H Respiratory Rate 18 18 Blood Pressure 126/76 127/77 Pulse Oximetry 98 97 01/27/18 04:00 Temperature 98.6 F Pulse Rate 110 H Respiratory Rate 18 Blood Pressure 124/75 Pulse Oximetry 97 Intake & Output 01/26/18 01/27/18 01/27/18 18:59 06:59 18:59 Intake Total 2345 / 2345 2019 Output Total 500 / 500 Balance 2345 / 2345 1520 / 1520 Weight 47.6 kg Intake: IV 150 / 150 2019 D5W + KCL 20 mEq Inj 1,000 ML @ 1000 / 1000 100 mls/hr IV.CONT .Q10H [facility] Rx#:[id number] KCl Inj 40 MEQ In D5W Inj 1,000 1020 / 1020 ML @ 84 mls/hr IV.CONT .Q12H9M [facility] Rx#:[id number] Zosyn 3.375 GM Premix 50 ML @ 50 / 50 100 mls/hr IV.SIG Q8H [facility] Rx#: [id number] Flagyl 500 MG Inj 100 ML @ 100 100 / 100 mls/hr IV.SIG Q8H [facility] Rx#: [id number] Oral 1395 / 1395 Other 800 / 800 Output: Urine 500 / 500 Other: # Voids 5 # Incontinent Voids 2 3 Date of Last Bowel Movement 01/25/18 # Bowel Movements 1 # Incontinent Bowel Movements 1 Narrative: GENERAL: Elderly female patient lying in bed. Appears comfortable. SKIN: Warm and dry. HEAD: Atraumatic. Normocephalic. EYES: Pupils equal and round. No scleral icterus. No injection or drainage. ENT: No nasal bleeding or discharge. Mucous membranes pink and moist. NECK: Trachea midline. No JVD. CARDIOVASCULAR: Regular rate and rhythm. RESPIRATORY: No accessory muscle use. Clear to auscultation. Breath sounds equal bilaterally. GASTROINTESTINAL: Abdomen soft, non-tender, nondistended. Hepatic and splenic margins not palpable. MUSCULOSKELETAL: Extremities without clubbing, cyanosis, or edema. No obvious deformities. NEUROLOGICAL: Awake and alert this morning, responds to questions appropriately. PSYCHIATRIC: Calm pleasant Results - Labs CBC & Chem 7: 01/26/18 08:38 01/26/18 15:26 Laboratory Results - last 24 hr 01/26/18 01/26/18 01/26/18 08:38 08:38 12:14 WBC 9.9 RBC 3.50 L Hgb 10.7 L Hct 32.4 L MCV 92.6 MCH 30.7 MCHC 33.1 RDW 14.9 Plt Count 189 MPV 8.9 Neut % (Auto) 79.7 H Lymph % (Auto) 10.2 [place] % (Auto) 7.1 Eos % (Auto) 2.7 Baso % (Auto) 0.3 Neut # (Auto) 7.9 H Lymph # (Auto) 1.0 [place] # (Auto) 0.7 Eos # (Auto) 0.3 Baso # (Auto) 0.0 WBC Differential . Differential Comment Auto diff final Sodium 150 H Potassium 2.6 L* Chloride 115 H Carbon Dioxide 22.8 Anion Gap 12 BUN 6 L Creatinine 0.68 Estimated GFR 84 L POC Glucose 120 H Random Glucose 106 Calcium 7.1 L* Prot Corrected Calcium 8.0 L Phosphorus 0.4 L Magnesium 1.7 Total Bilirubin 0.5 AST 15 ALT 14 Alkaline Phosphatase 118 H Total Protein 5.4 L Albumin 2.3 L 01/26/18 01/26/18 01/26/18 15:26 17:30 22:33 WBC RBC Hgb Hct MCV MCH MCHC RDW Plt Count MPV Neut % (Auto) Lymph % (Auto) [place] % (Auto) Eos % (Auto) Baso % (Auto) Neut # (Auto) Lymph # (Auto) [place] # (Auto) Eos # (Auto) Baso # (Auto) WBC Differential Differential Comment Sodium 149 H Potassium 2.6 L* Chloride 113 H Carbon Dioxide 25.2 Anion Gap 11 BUN 5 L Creatinine 0.64 Estimated GFR Greater than 89 POC Glucose 136 H 143 H Random Glucose 143 H Calcium 6.8 L* Prot Corrected Calcium 7.8 L Phosphorus Magnesium Total Bilirubin AST ALT Alkaline Phosphatase Total Protein 5.2 L Albumin - Procedures NONE Assessment and Plan - Plan In summary this is a 77-year-old female patient with a medical history that is significant for hypothyroidism, insomnia, chronic pain who presents to [facility] ED with altered mental status. Per ER report the patient had apparently taken 36 tablets of Unisom over the past week. Toxic encephalopathy Likely suspected overdose -Per review of EMR it appears the patient's mental status is slowly improving. She is on chronic narcotics and her medications have been held. The patient does have a seizure disorder and EEG was ordered. -Patient passed her swallow evaluation and has been cleared for honey thickened liquids and pured diet -Neurology was consulted: Patient had a trial of IV Ativan, EEG artifact no obvious seizure activity. DC IV acyclovir. No driving. Patient will require supervision of her medications. -MR brain did not show any acute stroke - Psych consulted: [facility] protocol, no psych admission is indicated. Patient admitted to [facility] on 01/26 that she was attempting suicide. Will ask psych to re- evaluate patient. Depression - restart patients patients remeron and paroxetine UTI Urine culture significant for E. coli Cultures and sensitivities resulted, start cipro 250 mg BID x 3 days for simple UTI Hemoccult positive - GI consulted: will require endoscopy and colonoscopy when more stable - also with diarrhea--> stop all lactulose and mag oxide Seizure disorder Hypothyroidism - cont synthroid 50 mg daily COPD Not an acute exacerbation, continue duo nebs as needed Chronic back pain Narcotics have been held, currently on a high-dose of pain medications Electrolyte disturbance - persistent Hypokalemia-->morning BMP pending - Mg is stable - HyperNatremia improving, she is awake, encourage PO hydration Discharge Planning: To be d/c: patient needs to be re-evaluated by psych, [facility], and then may be D.C to SNF
[2018-01-27] MEDS: Ciprofloxacin 250 MG Tablet PO SCH ×2 (09:54→20:15)
[2018-01-27] MEDS: Multivitamin/Minerals Therapeutic Tablet PO SCH (09:54)
[2018-01-27] MEDS: Folic Acid 1 MG Tablet PO SCH (09:55)
[2018-01-27 10:12] LABS: Anion Gap 6 meq/L (5-15); Blood Urea Nitrogen 2 mg/dL (7-18); Calcium 6.9 mg/dL (8.5-10.1); Carbon Dioxide 23.7 meq/L (21.0-32.0); Chloride 112 meq/L (98-107); Glomerular Filtration Rate Greater Than 89 mL/min (>89); Glucose,Random 118 mg/dL (74-106); Potassium 3.1 meq/L (3.5-5.1); Sodium 142 meq/L (136-145)
[2018-01-27 10:28] LABS: Total Protein 5.2 g/dL (6.4-8.2)
--- NOTE | 2018-01-27 13:39 | P.PNPSY ---
Subjective Remarks: Patient seen in follow-up consultation done by Dr. Mantilla on 01/22. Patient seen in her room with RN, chart reviewed, Dr. Mantilla's consult reviewed. Patient is an alert fairly well oriented frail elderly white female multiple bruises noted over both extremities she is overall alert. He denies suicidality homicidality voices or visions. States she lives with her , and their 2 pet cats, though she also states that when running, low on food recently. She denies any attempt to harm herself. Review of EMR shows patient was seen in consultation with Dr. Paolo García in 2011 with them the medications that she may have been misusing opiates and benzodiazepines. I agree with Dr. Mantilla's assessment. Patient does not meet criteria for inpatient psychiatric care or treatment is okay by psych for discharge for appropriate rehab facility. No specific suggestions for medications at this time thanks for consult will sign off at this time Review of Systems All other systems reviewed negative except as stated in HPI Mental Status Examination Appearance: Appropriate Consciousness: Clouded Orientation: Person, Place, Date/Time Motor Activity: Other Speech: Unremarkable Language: Adequate Fund of Knowledge: Inadequate Memory: Impaired Mood: Other (Euthymic to mildly restricted) Affect: Other (Slight decreased range and intensity) Thought Process & Associations: Linear Thought Content: Appropriate Hallucination Type: None Suicidal Ideation: No Suicidal Plan: No Suicidal Intention: No Homicidal Ideation: No Homicidal Plan: No Homicidal Intention: No Insight: Poor Judgment: Poor (MSE is limited due to altered mental status.) Assessment and Plan - Assessment (1) Acute drug overdose Code(s): T50.901A - Poisoning by unspecified drugs, medicaments and biological substances, accidental (unintentional), initial encounter Status: Acute (2) Delirium due to another medical condition Code(s): F05 - Delirium due to known physiological condition Status: Acute - Plan Plan: Isaac by psych for discharge for appropriate rehab facility. Patient is not a candidate for [facility] or for 4 E. Thanks for consult will sign off at the present time Justification for Continued Inpatient Stay: See treatment team no Discharge Planning: See treatment team note (1) Acute drug overdose Qualifiers: Encounter type: initial encounter Injury intent: undetermined intent Qualified Code(s): T50.904A - Poisoning by unspecified drugs, medicaments and biological substances, undetermined, initial encounter
[2018-01-28] MEDS: Potassium Chloride Inj 40 MEQ in Dextrose 5% in Water Inj 1,000 ML IV.CONT SCH ×4 (05:45→13:31)
[2018-01-28] MEDS: Levothyroxine 50 MCG Tablet PO SCH (05:45)
[2018-01-28] MEDS: Ciprofloxacin 250 MG Tablet PO SCH ×2 (08:30→22:38)
--- NOTE | 2018-01-28 08:30 | P.PN ---
Subjective Interval history: Patient seen and examined this morning, their vitals are stable and the patient is afebrile. She states her stomach is better. She is tolerating diet. Her and her lives with her son and his . Physical Exam Vital signs: Vital Signs 01/27/18 12:00 01/27/18 16:00 01/27/18 20:00 Temperature 97.7 F 98.3 F 98.7 F Pulse Rate 85 100 H 98 H Respiratory Rate 20 20 18 Blood Pressure 116/74 117/73 122/72 Pulse Oximetry 97 98 99 01/28/18 00:00 01/28/18 04:00 01/28/18 04:43 Temperature 98.9 F 98.6 F Pulse Rate 98 H 99 H 105 H Respiratory Rate 18 18 Blood Pressure 133/75 118/68 Pulse Oximetry 99 99 Intake & Output 01/27/18 01/28/18 01/28/18 18:59 06:59 18:59 Intake Total 1020 / 1020 1020 / 1020 Output Total 5 / 5 Balance 1015 / 1015 1020 / 1020 Weight 45.3 kg Intake: IV 1020 / 1020 1020 / 1020 KCl Inj 40 MEQ In D5W Inj 1,000 1020 / 1020 1020 / 1020 ML @ 84 mls/hr IV.CONT .Q12H9M [facility] Rx#:[id number] Output: Urine / Stool / Other: # Incontinent Voids 4 Date of Last Bowel Movement 01/27/18 01/27/18 # Bowel Movements 2 # Incontinent Bowel Movements 1 Narrative: GENERAL: Elderly female patient lying in bed. Appears comfortable. SKIN: Warm and dry. HEAD: Atraumatic. Normocephalic. EYES: Pupils equal and round. No scleral icterus. No injection or drainage. ENT: No nasal bleeding or discharge. Mucous membranes pink and moist. NECK: Trachea midline. No JVD. CARDIOVASCULAR: Regular rate and rhythm. RESPIRATORY: No accessory muscle use. Clear to auscultation. Breath sounds equal bilaterally. GASTROINTESTINAL: Abdomen soft, non-tender, nondistended. Hepatic and splenic margins not palpable. MUSCULOSKELETAL: Extremities without clubbing, cyanosis, or edema. No obvious deformities. NEUROLOGICAL: Awake and alert this morning, responds to questions appropriately. PSYCHIATRIC: Calm pleasant Results - Labs CBC & Chem 7: 01/26/18 08:38 01/27/18 09:03 Laboratory Results - last 24 hr 01/27/18 01/27/18 01/28/18 09:03 18:02 08:12 Sodium 142 Potassium 3.1 L Chloride 112 H Carbon Dioxide 23.7 Anion Gap 6 BUN 2 L Creatinine 0.50 Estimated GFR Greater than 89 POC Glucose 125 H 108 Random Glucose 118 H Calcium 6.9 L* Prot Corrected Calcium 7.9 L Total Protein 5.2 L - Procedures NONE Assessment and Plan - Plan In summary this is a 77-year-old female patient with a medical history that is significant for hypothyroidism, insomnia, chronic pain who presents to [place] ED with altered mental status. Per ER report the patient had apparently taken 36 tablets of Unisom over the past week. Toxic encephalopathy Likely suspected overdose -Per review of EMR it appears the patient's mental status is slowly improving. She is on chronic narcotics and her medications have been held. The patient does have a seizure disorder and EEG was ordered. -Patient passed her swallow evaluation and has been cleared for honey thickened liquids and pured diet -Neurology was consulted: Patient had a trial of IV Ativan, EEG artifact no obvious seizure activity. DC IV acyclovir. No driving. Patient will require supervision of her medications. -MR brain did not show any acute stroke - Psych consulted: [facility] protocol, no psych admission is indicated. [facility] that she was attempting [facility]. Will ask psych to re- evaluate patient. Patient was re-evaluated on 01/27, patient not candidate for inpatient psych. May proceed with dc to rehab. Depression - restart patients patients remeron and paroxetine UTI Urine culture significant for E. coli Cultures and sensitivities resulted, started 01/26 cipro 250 mg BID x 3 days for simple UTI Hemoccult positive - GI consulted: will require endoscopy and colonoscopy when more stable--> I have reached out to GI on 01 28 to see if this workup can be done as an outpatient or if it something she needs to do while here in the hospital. - also with diarrhea--> stop all lactulose and mag oxide Seizure disorder Hypothyroidism - cont synthroid 50 mg daily COPD Not an acute exacerbation, continue duo nebs as needed Chronic back pain Narcotics have been held, currently on a high-dose of pain medications Electrolyte disturbance - persistent Hypokalemia-->morning BMP pending - Mg is stable - HyperNatremia improving, she is awake, encourage PO hydration Discharge Planning: To be d/c: patient has been cleared by psych for to SNF. Will reach out to GI to see if they would like to complete workup in patient or follow up as an outpatient. Otherwise may proceed with discharge pending stable potassium.
[2018-01-28 10:24] LABS: Anion Gap 9 meq/L (5-15); Blood Urea Nitrogen 2 mg/dL (7-18); Calcium 7.2 mg/dL (8.5-10.1); Carbon Dioxide 22.2 meq/L (21.0-32.0); Chloride 111 meq/L (98-107); Glomerular Filtration Rate Greater Than 89 mL/min (>89); Glucose,Random 118 mg/dL (74-106); Potassium 3.3 meq/L (3.5-5.1); Sodium 142 meq/L (136-145)
[2018-01-28 10:37] LABS: Total Protein 5.9 g/dL (6.4-8.2)
--- NOTE | 2018-01-28 12:28 | P.CONGI ---
History of Present Illness Consult date: 01/28/18 Consult reason: Heme positive stool, GI bleed Chief complaint: AMS, Medication Overdose History of Present Illness: This is a 77-year-old female who entered the hospital on 01/22/2018 from an intentional overdose of Unasyn tablets. Hemoglobin on admission was 12.2 and last check was 10.7. Initially patient was complaining of some abdominal discomfort but states abdominal pain has resolved now on 829 patient had Hemoccult positive stool and labs have been monitored for any obvious GI bleed. Currently patient denies any symptoms of nausea vomiting dyspepsia no diarrhea no constipation. Gastroenterology was consulted to assist with monitoring any GI bleed and currently patient is noted to be stable from a medical standpoint. Patient states she thinks she had a colonoscopy years ago but does not remember any findings and no EGD in the past. Currently patient is able to sit up in the chair and is more alert and able to carry on simple conversation. Patient is pale, mild generalized weakness but this could be related to her current hospital stay and her age. Aggregating factors could be related to multiple Unasyn taken on admission which cause gastritis and inflammation. Patient states she is planning to go to a rehab facility to assist with her weakness. <Geneva Almeida - Last Filed: 01/28/18 12:41> Review of Systems All other systems reviewed negative except as stated in HPI <Geneva Almeida - Last Filed: 01/28/18 12:41> PMFSH - History History Provided By: Patient - Medical History Medical History: Medical History (Last Reviewed 01/28/18 @ 09:24 by Nahomi Gates) Benzodiazepine overdose (Acute) Onset Date: ~2004 Seizure disorder (Acute) Hypertension (Acute) Chronic back pain (Acute) Hypothyroidism (Acute) COPD (chronic obstructive pulmonary disease) (Acute) Fracture of leg Fracture of spine History of hysterectomy Hypocalcemia NSTEMI (non-ST elevated myocardial infarction) PTSD (post-traumatic stress disorder) - Surgical History Surgical History: Surgical History (Last Reviewed 01/28/18 @ 09:24 by Nahomi Gates) H/O cardiac catheterization H/O gastric bypass History of appendectomy History of cholecystectomy - Family History Family History: Family History (Last Updated 01/23/18 @ 13:02 by TRAVIS Ramsay) Sister No problems noted. Mother COPD (chronic obstructive pulmonary disease) Mother Hypertension Other Family history unobtainable - Tobacco History Second Hand Smoke Exposure: No Tobacco Use In Past 30 Days: No Smoking Status: Former smoker Tobacco Type: Cigarettes Packs Per Day: 0.5 - Alcohol History How Often Do You Have a Drink Containing Alcohol: Never - Substance Use History Substance History: No History of Abuse - Travel History Recent Travel in the [place] Within the Last 8 Weeks: No Recent Travel Out of the Country Within the Last 8 Weeks: No - Immunization History Tetanus Immunization: Unsure <Geneva Almeida - Last Filed: 01/28/18 12:41> - Medical History Medical History: Medical History (Last Reviewed 01/28/18 @ 09:24 by Nahomi Gates) Benzodiazepine overdose (Acute) Onset Date: ~2004 Seizure disorder (Acute) Hypertension (Acute) Chronic back pain (Acute) Hypothyroidism (Acute) COPD (chronic obstructive pulmonary disease) (Acute) Fracture of leg Fracture of spine History of hysterectomy Hypocalcemia NSTEMI (non-ST elevated myocardial infarction) PTSD (post-traumatic stress disorder) - Surgical History Surgical History: Surgical History (Last Reviewed 01/28/18 @ 09:24 by Nahomi Gates) H/O cardiac catheterization H/O gastric bypass History of appendectomy History of cholecystectomy - Family History Family History: Family History (Last Updated 01/23/18 @ 13:02 by TRAVIS Ramsay) Sister No problems noted. Mother COPD (chronic obstructive pulmonary disease) Mother Hypertension Other Family history unobtainable <Maurizio Eaton - Last Filed: 01/28/18 22:58> Medications and Allergies Active Medications: Active Medications Acetaminophen (Tylenol Supp) 650 mg RECTAL Q6H PRN PRN Reason: FEVER Last Admin: 01/23/18 15:27 Dose: 650 mg Albuterol (Duoneb Neb (Prn)) 1 ampul NEB Q2HR NEB PRN PRN Reason: SHORTNESS OF BREATH Bisacodyl (Dulcolax Supp) 10 mg RECTAL DAILY PRN PRN Reason: SEVERE CONSITIPATION Ciprofloxacin HCl (Cipro) 250 mg PO Q12HR JOSEPH Last Admin: 01/28/18 08:30 Dose: 250 mg Clonidine HCl (Catapres) 0.1 mg PO Q6H PRN PRN Reason: For SBP >/= 180, DBP >/= 100 Flumazenil (Romazecon Inj) 0.2 mg IV.PUSH Q1M PRN PRN Reason: OVERSEDATION Haloperidol Lactate (Haldol Inj) 1 mg IV.PUSH Q15M PRN PRN Reason: for severe agitation Last Admin: 01/23/18 11:32 Dose: 1 mg Potassium Chloride 40 meq/ (Dextrose) 1,020 mls @ 84 mls/hr IV.CONT .Q12H9M [facility] Last Infusion: 01/28/18 11:36 Dose: 84 mls/hr Levothyroxine Sodium (Synthroid) 50 mcg PO DAILY@0600 [facility] Last Admin: 01/28/18 05:45 Dose: 50 mcg Lorazepam (Ativan) 1 mg PO Q4H PRN PRN Reason: for CIWA 8-10 Last Admin: 01/23/18 05:01 Dose: 1 mg Lorazepam (Ativan) 2 mg PO Q2H PRN PRN Reason: for CIWA 11-14 Lorazepam (Ativan Inj) 2 mg IV.PUSH Q2H PRN PRN Reason: for CIWA 11-14 Last Admin: 01/24/18 03:00 Dose: 2 mg Lorazepam (Ativan Inj) 2 mg IV.PUSH Q1H PRN PRN Reason: for CIWA 15-20 Lorazepam (Ativan Inj) 2 mg IV.PUSH Q15M PRN PRN Reason: for CIWA > 20 Lorazepam (Ativan Inj) 1 mg IV.PUSH Q4H PRN PRN Reason: for CIWA 8-10 Last Admin: 01/22/18 17:56 Dose: 1 mg Mirtazapine (Remeron Soltab Odt) 15 mg PO HS [facility] Last Admin: 01/27/18 20:15 Dose: 15 mg Pantoprazole Sodium (Protonix) 40 mg PO DAILY [facility] Last Admin: 01/28/18 08:31 Dose: 40 mg Paroxetine HCl (Paxil) 40 mg PO DAILY [facility] Last Admin: 01/28/18 08:31 Dose: 40 mg Sennosides (Senokot) 17.2 mg PO Q12H PRN PRN Reason: Moderate Constipation Sodium Chloride (Ns Flush) 2 ml IV.FLUSH PRN PRN PRN Reason: FLUSH AFTER USING IV ACCESS Thiamine HCl (Vitamin B1) 100 mg PO DAILY [facility] Last Admin: 01/28/18 08:31 Dose: 100 mg <Geneva Almeida M - Last Filed: 01/28/18 12:41> Active Medications: Active Medications Acetaminophen (Tylenol Supp) 650 mg RECTAL Q6H PRN PRN Reason: FEVER Last Admin: 01/23/18 15:27 Dose: 650 mg Albuterol (Duoneb Neb (Prn)) 1 ampul NEB Q2HR NEB PRN PRN Reason: SHORTNESS OF BREATH Bisacodyl (Dulcolax Supp) 10 mg RECTAL DAILY PRN PRN Reason: SEVERE CONSITIPATION Ciprofloxacin HCl (Cipro) 250 mg PO Q12HR [facility] Last Admin: 01/28/18 22:38 Dose: 250 mg Clonidine HCl (Catapres) 0.1 mg PO Q6H PRN PRN Reason: For SBP >/= 180, DBP >/= 100 Flumazenil (Romazecon Inj) 0.2 mg IV.PUSH Q1M PRN PRN Reason: OVERSEDATION Haloperidol Lactate (Haldol Inj) 1 mg IV.PUSH Q15M PRN PRN Reason: for severe agitation Last Admin: 01/23/18 11:32 Dose: 1 mg Potassium Chloride 40 meq/ (Dextrose) 1,020 mls @ 84 mls/hr IV.CONT .Q12H9M [facility] Last Admin: 01/28/18 13:31 Dose: Not Given Lactated Ringer's (Lr 1000 Ml Inj) 1,000 mls @ 30 mls/hr IV.SIG .Q24H [facility] Stop: 01/29/18 21:14 Sodium Chloride (Ns Inj) 500 mls @ 30 mls/hr IV.SIG .Q10H [facility] Levothyroxine Sodium (Synthroid) 50 mcg PO DAILY@0600 [facility] Last Admin: 01/28/18 05:45 Dose: 50 mcg Lorazepam (Ativan) 1 mg PO Q4H PRN PRN Reason: for CIWA 8-10 Last Admin: 01/23/18 05:01 Dose: 1 mg Lorazepam (Ativan) 2 mg PO Q2H PRN PRN Reason: for CIWA 11-14 Lorazepam (Ativan Inj) 2 mg IV.PUSH Q2H PRN PRN Reason: for CIWA 11-14 Last Admin: 01/24/18 03:00 Dose: 2 mg Lorazepam (Ativan Inj) 2 mg IV.PUSH Q1H PRN PRN Reason: for CIWA 15-20 Lorazepam (Ativan Inj) 2 mg IV.PUSH Q15M PRN PRN Reason: for CIWA > 20 Lorazepam (Ativan Inj) 1 mg IV.PUSH Q4H PRN PRN Reason: for CIWA 8-10 Last Admin: 01/22/18 17:56 Dose: 1 mg Mirtazapine (Remeron Soltab Odt) 15 mg PO HS [facility] Last Admin: 01/28/18 22:38 Dose: 15 mg Pantoprazole Sodium (Protonix) 40 mg PO DAILY [facility] Last Admin: 01/28/18 08:31 Dose: 40 mg Paroxetine HCl (Paxil) 40 mg PO DAILY [facility] Last Admin: 01/28/18 08:31 Dose: 40 mg Sennosides (Senokot) 17.2 mg PO Q12H PRN PRN Reason: Moderate Constipation Sodium Chloride (Ns Flush) 2 ml IV.FLUSH PRN PRN PRN Reason: FLUSH AFTER USING IV ACCESS Thiamine HCl (Vitamin B1) 100 mg PO DAILY [facility] Last Admin: 01/28/18 08:31 Dose: 100 mg <Maurizio Eaton A - Last Filed: 01/28/18 22:58> Allergies Allergy/AdvReac Type Severity Reaction Status Date / Time pentazocine Allergy Severe Hallucinati Verified 01/22/18 04:04 ons promethazine Allergy Severe Restlessnes Verified 01/22/18 04:04 s Home Medications Medication Instructions Recorded Confirmed Type diphenhydramine HCl [Unisom 50 mg PO Q4-6H PRN 01/22/18 01/22/18 History Sleepgels] levothyroxine 50 mcg PO DAILY 01/22/18 01/22/18 History mirtazapine 15 mg PO HS 01/22/18 01/22/18 History morphine 30 mg PO TID 01/22/18 01/22/18 History paroxetine HCl 40 mg PO DAILY 01/22/18 01/22/18 History temazepam 1 tab PO DAILY 01/22/18 01/22/18 History Exam Vital signs: Vital Signs 01/27/18 16:00 01/27/18 20:00 01/28/18 00:00 Temperature 98.3 F 98.7 F 98.9 F Pulse Rate 100 H 98 H 98 H Respiratory Rate 20 18 18 Blood Pressure 117/73 122/72 133/75 Pulse Oximetry 98 99 99 01/28/18 04:00 01/28/18 04:43 01/28/18 08:00 Temperature 98.6 F 98.1 F Pulse Rate 99 H 105 H 100 H Respiratory Rate 18 16 Blood Pressure 118/68 135/80 Pulse Oximetry 99 100 01/28/18 12:00 Temperature 98.1 F Pulse Rate 116 H Respiratory Rate 16 Blood Pressure 109/79 Pulse Oximetry 100 Intake & Output 01/27/18 01/28/18 01/28/18 18:59 06:59 18:59 Intake Total 1020 / 1020 1020 / 1020 220 / 220 Output Total 5 / 5 Balance 1015 / 1015 1020 / 1020 220 / 220 Weight 45.3 kg Intake: IV 1020 / 1020 1020 / 1020 220 / 220 KCl Inj 40 MEQ In D5W Inj 1,000 1020 / 1020 1020 / 1020 220 / 220 ML @ 84 mls/hr IV.CONT .Q12H9M [facility] Rx#:[id number] Output: Urine 4 / 4 Stool 1 / Other: # Incontinent Voids 4 Date of Last Bowel Movement 01/27/18 01/27/18 # Bowel Movements 2 # Incontinent Bowel Movements 1 - Constitutional no acute distress, average body habitus (Overweight) - Routine HEENT Exam Head: Present: normocephalic ENT: Present: mucous membranes moist - Routine Neck Exam Present: supple - Routine Respiratory Exam Present: accessory muscle use (No obvious shortness of breath at rest) - Routine Cardiovascular Exam Present: S1, S2 - Routine Abdominal Exam Present: soft (Round, soft bowel sounds no abdominal pain to light palpation, denies any diarrhea or constipation) <Geneva Almeida - Last Filed: 01/28/18 12:41> Vital signs: Vital Signs 01/28/18 00:00 01/28/18 04:00 01/28/18 04:43 Temperature 98.9 F 98.6 F Pulse Rate 98 H 99 H 105 H Respiratory Rate 18 18 Blood Pressure 133/75 118/68 Pulse Oximetry 99 99 01/28/18 08:00 01/28/18 12:00 01/28/18 16:00 Temperature 98.1 F 98.1 F 98.2 F Pulse Rate 100 H 116 H 97 H Respiratory Rate 16 16 16 Blood Pressure 135/80 109/79 133/78 Pulse Oximetry 100 100 99 01/28/18 16:09 01/28/18 20:15 Temperature 98 F Pulse Rate 135 H 88 Respiratory Rate 18 Blood Pressure 138/72 Pulse Oximetry 98 Intake & Output 01/28/18 01/28/18 01/29/18 06:59 18:59 06:59 Intake Total 1020 / 1020 1000 / 1000 1000 / 1000 Balance 1020 / 1020 1000 / 1000 1000 / 1000 Weight 45.3 kg Intake: IV 1020 / 1020 220 / 220 KCl Inj 40 MEQ In D5W Inj 1,000 1020 / 1020 220 / 220 ML @ 84 mls/hr IV.CONT .Q12H9M [facility] Rx#:[id number] Oral 780 / 780 1000 / 1000 Other: # Voids 6 # Incontinent Voids 4 2 Date of Last Bowel Movement 01/27/18 01/28/18 # Bowel Movements 2 4 # Incontinent Bowel Movements 1 1 <Maurizio Eaton A - Last Filed: 01/28/18 22:58> Results - Labs CBC & Chem 7: 01/26/18 08:38 01/28/18 09:40 Labs: Laboratory Results - last 24 hr 01/27/18 01/28/18 01/28/18 18:02 08:12 09:40 Sodium 142 Potassium 3.3 L Chloride 111 H Carbon Dioxide 22.2 Anion Gap 9 BUN 2 L Creatinine 0.54 Estimated GFR Greater than 89 POC Glucose 125 H 108 Random Glucose 118 H Calcium 7.2 L* Prot Corrected Calcium 7.8 L Total Protein 5.9 L D 01/28/18 11:35 Sodium Potassium Chloride Carbon Dioxide Anion Gap BUN Creatinine Estimated GFR POC Glucose 122 H Random Glucose Calcium Prot Corrected Calcium Total Protein <Geneva Almeida - Last Filed: 01/28/18 12:41> - Labs CBC & Chem 7: 01/26/18 08:38 01/28/18 09:40 Labs: Laboratory Results - last 24 hr 01/28/18 01/28/18 01/28/18 08:12 09:40 11:35 Sodium 142 Potassium 3.3 L Chloride 111 H Carbon Dioxide 22.2 Anion Gap 9 BUN 2 L Creatinine 0.54 Estimated GFR Greater than 89 POC Glucose 108 122 H Random Glucose 118 H Calcium 7.2 L* Prot Corrected Calcium 7.8 L Total Protein 5.9 L D 01/28/18 18:39 Sodium Potassium Chloride Carbon Dioxide Anion Gap BUN Creatinine Estimated GFR POC Glucose 89 Random Glucose Calcium Prot Corrected Calcium Total Protein <Maurizio Eaton - Last Filed: 01/28/18 22:58> Assessment and Plan - Plan GI bleed, Hemoccult positive stool on 01/23/2018, could be related to gastritis or inflammation secondary to the 36 Unasyn tablets she took before admission. Currently patient denies any symptoms of abdominal pain nausea vomiting diarrhea or constipation. Any initial abdominal pain is now more controlled with PPI. Colonoscopy done many years ago, poor historian and unknown findings Anemia could be related to acute or chronic disease. Generalized decrease in hemoglobin during this admission. No previous EGD in the past Labs initially showed hemoglobin 12.2 on admission now 10.7, and patient is stable from the medical and psych standpoint for further testing/since patient is planning to go to rehab facility will consider EGD colonoscopy inpatient setting PT/INR 1.3, probable related to shock liver and patient's medication overdose Plan Clear liquids today N.p.o. at midnight Consent for EGD colonoscopy Mag citrate and Dulcolax prep PPI Further recommendations to follow Patient was seen per myself and Dr. Eaton, note was written on his behalf <Geneva Almeida - Last Filed: 01/28/18 12:41> - Attending Attestation Agree with above assessment and plan. Will prep for EGD and Colonoscopy tomorrow. Thank you for the consult. <Maurizio Eaton - Last Filed: 01/28/18 22:58>
--- NOTE | 2018-01-28 13:07 | P.PNPAL ---
Reason for Visit Reason for visit: a. To assist with evaluation and management of symptoms including: Confusion, dyskinesias b. To assist medical decision maker(s) with: better understanding of current medical conditions; weighing benefits/burdens of medical treatment options; making medical treatment decisions. Subjective Subjective/Interval History: Patient seen to evaluate symptoms of weakness, dysphagia and assist in goals of medical treatment. She is alert and oriented 4 today. Her speech is clear congruent and she expresses her thoughts well. She states the thickener that she is required to have in her fluids "tastes like wallpaper paste" and "causes her diarrhea". Her appetite is quite poor because she said they are feeding her "fluffy" food ( pured diet) and it tastes terrible. She is requesting Ensure. She was last seen by speech therapy on 01/24 and recommended pured diet with honey thickened consistency fluids. Patient is now requesting rehab for strengthening and for continued speech therapy to hopefully eliminate the need for thickening and diet modification. She remains with some muscle weakness and again, requests rehab, as she feels she will not get stronger and may decline in independence without supplemental physical therapy. She has difficulty with ambulation due to generalized weakness and feels that her need for diet modifications are again due to overall weakness. She is at elevated risk for falls and has been seen by physical therapy while in the hospital. They note that while patient verbalized understanding of fall reduction strategies, safety awareness, body mechanics and postural awareness that she will need reinforcement. They found her to be cooperative and following instructions well. They recommend physical therapy at rehab and notes that she would benefit from occupational therapy as well. She is currently sitting up in a chair maintaining good posture and moving all extremities with equal strength and purpose. . Family/Friend Interactions: Spoke with her daughter, Christi, who is going to assist her in finding rehabilitation facilities. We reviewed options with pillowcase cleaner, Sona Shay , who provided [facility] facilities information for the daughter to evaluate. The daughter has requested a referral to [facility] but is also evaluating [facility] and the [facility] facilities in case her mother is not accepted by [facility]. Objective Vital Signs: Vital Signs 01/27/18 16:00 01/27/18 20:00 01/28/18 00:00 Temperature 98.3 F 98.7 F 98.9 F Pulse Rate 100 H 98 H 98 H Respiratory Rate 20 18 18 Blood Pressure 117/73 122/72 133/75 Pulse Oximetry 98 99 99 01/28/18 04:00 01/28/18 04:43 01/28/18 08:00 Temperature 98.6 F 98.1 F Pulse Rate 99 H 105 H 100 H Respiratory Rate 18 16 Blood Pressure 118/68 135/80 Pulse Oximetry 99 100 01/28/18 12:00 Temperature 98.1 F Pulse Rate 116 H Respiratory Rate 16 Blood Pressure 109/79 Pulse Oximetry 100 Intake & Output 01/27/18 01/28/18 01/28/18 18:59 06:59 18:59 Intake Total 1020 / 1020 1020 / 1020 220 / 220 Output Total 5 / 5 Balance 1015 / 1015 1020 / 1020 220 / 220 Weight 99 lb 13.91 oz Intake: IV 1020 / 1020 1020 / 1020 220 / 220 KCl Inj 40 MEQ In D5W Inj 1,000 1020 / 1020 1020 / 1020 220 / 220 ML @ 84 mls/hr IV.CONT .Q12H9M [facility] Rx#:[id number] Output: Urine Stool Other: # Incontinent Voids 4 Date of Last Bowel Movement 01/27/18 01/27/18 # Bowel Movements 2 # Incontinent Bowel Movements 1 Physical Exam: CONSTITUTIONAL/GENERAL: This is an elderly, cachectic female, sitting up in a chair, in no acute distress. TUBES/LINES/DRAINS: PIV. SKIN: No jaundice, rashes, or lesions. Ecchymoses on upper extremities. No wounds seen anteriorly. Skin temperature appropriate. Not diaphoretic. HEAD: Atraumatic. Normocephalic. EYES: Pupils equal and round and reactive. Extraocular motions intact. No scleral icterus. No injection or drainage. Fundi not examined. ENT: Hearing grossly normal. Nose without bleeding or purulent drainage. Throat without visible erythema, exudates, masses, or lesions. NECK: Trachea midline. Supple, nontender. No palpable thyroid enlargement or nodularity. CARDIOVASCULAR: Regular rate and rhythm with 2/6 systolic ejection murmur, without gallops, or rubs. No JVD. Peripheral pulses symmetric. RESPIRATORY/CHEST: Symmetric, unlabored respirations. Clear, diminished to auscultation. Breath sounds equal bilaterally. No wheezes, rales, or rhonchi. GASTROINTESTINAL: Abdomen soft, non-tender, nondistended. No hepato-splenomegaly , or palpable masses. No guarding. Bowel sounds present. GENITOURINARY: Without palpable bladder distension. Otoole catheter in place. MUSCULOSKELETAL: Extremities without clubbing, cyanosis, or edema. Generalized weakness in all extremities. No mottling or clubbing. NEUROLOGICAL: Awake, oriented 3, sitting up in a chair, conversing animatedly with clear speech and congruent thoughts. PSYCHIATRIC: Appropriate, calm. . Diagnostic Tests Laboratory: Laboratory Results - last 72 hr 01/25/18 01/25/18 01/25/18 13:26 13:26 14:45 WBC 9.9 RBC 3.72 L Hgb 11.3 L Hct 34.1 L MCV 91.7 MCH 30.3 MCHC 33.1 RDW 15.2 Plt Count 191 MPV 9.0 Neut % (Auto) 79.9 H Lymph % (Auto) 10.6 Bowman % (Auto) 8.5 H Eos % (Auto) 0.6 Baso % (Auto) 0.4 Neut # (Auto) 7.9 H Lymph # (Auto) 1.0 Bowman # (Auto) 0.8 Eos # (Auto) 0.1 Baso # (Auto) 0.0 WBC Differential . Differential Comment Auto diff final Sodium 156 H* Potassium 2.7 L* Chloride 122 H Carbon Dioxide 23.2 Anion Gap 11 BUN 11 Creatinine 0.64 Estimated GFR Greater than 89 POC Glucose 106 Random Glucose 111 H Calcium 7.5 L Prot Corrected Calcium Phosphorus 0.7 L Magnesium 2.1 Total Bilirubin 0.4 AST 18 ALT 19 Alkaline Phosphatase 129 H Total Protein 5.5 L D Albumin 2.5 L 01/25/18 01/26/18 01/26/18 21:57 07:55 08:38 WBC 9.9 RBC 3.50 L Hgb 10.7 L Hct 32.4 L MCV 92.6 MCH 30.7 MCHC 33.1 RDW 14.9 Plt Count 189 MPV 8.9 Neut % (Auto) 79.7 H Lymph % (Auto) 10.2 Bowman % (Auto) 7.1 Eos % (Auto) 2.7 Baso % (Auto) 0.3 Neut # (Auto) 7.9 H Lymph # (Auto) 1.0 Bowman # (Auto) 0.7 Eos # (Auto) 0.3 Baso # (Auto) 0.0 WBC Differential . Differential Comment Auto diff final Sodium Potassium Chloride Carbon Dioxide Anion Gap BUN Creatinine Estimated GFR POC Glucose 125 H 98 Random Glucose Calcium Prot Corrected Calcium Phosphorus Magnesium Total Bilirubin AST ALT Alkaline Phosphatase Total Protein Albumin 01/26/18 01/26/18 01/26/18 08:38 12:14 15:26 WBC RBC Hgb Hct MCV MCH MCHC RDW Plt Count MPV Neut % (Auto) Lymph % (Auto) Bowman % (Auto) Eos % (Auto) Baso % (Auto) Neut # (Auto) Lymph # (Auto) Bowman # (Auto) Eos # (Auto) Baso # (Auto) WBC Differential Differential Comment Sodium 150 H 149 H Potassium 2.6 L* 2.6 L* Chloride 115 H 113 H Carbon Dioxide 22.8 25.2 Anion Gap 12 11 BUN 6 L 5 L Creatinine 0.68 0.64 Estimated GFR 84 L Greater than 89 POC Glucose 120 H Random Glucose 106 143 H Calcium 7.1 L* 6.8 L* Prot Corrected Calcium 8.0 L 7.8 L Phosphorus 0.4 L Magnesium 1.7 Total Bilirubin 0.5 AST 15 ALT 14 Alkaline Phosphatase 118 H Total Protein 5.4 L 5.2 L Albumin 2.3 L 01/26/18 01/26/18 01/27/18 17:30 22:33 09:03 WBC RBC Hgb Hct MCV MCH MCHC RDW Plt Count MPV Neut % (Auto) Lymph % (Auto) Bowman % (Auto) Eos % (Auto) Baso % (Auto) Neut # (Auto) Lymph # (Auto) Bowman # (Auto) Eos # (Auto) Baso # (Auto) WBC Differential Differential Comment Sodium 142 Potassium 3.1 L Chloride 112 H Carbon Dioxide 23.7 Anion Gap 6 BUN 2 L Creatinine 0.50 Estimated GFR Greater than 89 POC Glucose 136 H 143 H Random Glucose 118 H Calcium 6.9 L* Prot Corrected Calcium 7.9 L Phosphorus Magnesium Total Bilirubin AST ALT Alkaline Phosphatase Total Protein 5.2 L Albumin 01/27/18 01/28/18 01/28/18 18:02 08:12 09:40 WBC RBC Hgb Hct MCV MCH MCHC RDW Plt Count MPV Neut % (Auto) Lymph % (Auto) Bowman % (Auto) Eos % (Auto) Baso % (Auto) Neut # (Auto) Lymph # (Auto) Bowman # (Auto) Eos # (Auto) Baso # (Auto) WBC Differential Differential Comment Sodium 142 Potassium 3.3 L Chloride 111 H Carbon Dioxide 22.2 Anion Gap 9 BUN 2 L Creatinine 0.54 Estimated GFR Greater than 89 POC Glucose 125 H 108 Random Glucose 118 H Calcium 7.2 L* Prot Corrected Calcium 7.8 L Phosphorus Magnesium Total Bilirubin AST ALT Alkaline Phosphatase Total Protein 5.9 L D Albumin 01/28/18 11:35 WBC RBC Hgb Hct MCV MCH MCHC RDW Plt Count MPV Neut % (Auto) Lymph % (Auto) Bowman % (Auto) Eos % (Auto) Baso % (Auto) Neut # (Auto) Lymph # (Auto) Bowman # (Auto) Eos # (Auto) Baso # (Auto) WBC Differential Differential Comment Sodium Potassium Chloride Carbon Dioxide Anion Gap BUN Creatinine Estimated GFR POC Glucose 122 H Random Glucose Calcium Prot Corrected Calcium Phosphorus Magnesium Total Bilirubin AST ALT Alkaline Phosphatase Total Protein Albumin Result Diagrams: 01/26/18 08:38 01/28/18 09:40 Assessment and Plan Pertinent Non-Medical Issues: Psychosocial: Patient was born in [place] and moved to [place] many years ago. She raised 8 children, 7 of home remain alive. 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 She and her reside with their son for support. 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 Legal: No advance directives completed. Ethical issues impacting care: None noted. . Important Contacts: Turner Son Jasbir Daughter Christi . Prognosis: Her prognosis is guarded. She is 77 with multiple medical issues to include COPD hypothyroidism pain, hypertension, seizure disorder and encephalopathy with increasingly frequent ED visits. She has chronic nutrition and electrolyte derangements and is in chronic pain. While she has no terminal disease, she has progressively worsening debility and is at risk for continued decline, hospitalizations and complications. . Code Status: Full Code Plan: PLAN: Legal decision maker: Patient is not capacitated to make her own decisions. Per [place] statutes, her will serve as her decision-maker, supported by her children. No prior healthcare surrogate's or living will are available. Goals: To be determined CODE STATUS: FULL CODE by default SYMPTOMS: * Weakness: She has generalized weakness from being sedentary. It is the recommendation of physical therapy, and the request of the patient to be referred for skilled rehabilitation prior to discharge home. * Dysphasia: She is eating very little because she does not like the pured diet and thickened liquids. She is requesting Ensure, preferably mixed with vanilla ice cream, and if necessary some thickener. Would recommend nutritional consult and adding Ensure to her diet. Palliative care will continue to follow the patient during hospital course as condition evolves, to assist patient/decision-maker with understanding of their medical conditions, weighing benefits/burdens of treatment options, for clarification of goals of treatment. Additionally will assist with any symptoms of palliative concern. . Attestation Attestation: To help prompt me to consider important information that might be impacting today's encounter and assessment, information from prior notes written by myself or my colleagues may have been "brought forward" into today's note. My signature on this note, however, is an attestation that I personally performed the exam, history, and/or decision-making noted today, and, unless otherwise indicated, the interactions with patient, family, and staff as well as the review of records all occurred today. I also attest that the listed assessment and stated plan reflect my best clinical judgment today based on the combination of historical information, prior notes, and today's exam/ interactions. When time spent is documented, it refers only to time spent today by the signer, or if indicated, combined time spent today by collaborating physician/nurse practitioner. .
[2018-01-28] MEDS ORDERED: Magnesium Citrate Liq 300 ML Bottle PO ONE ×2 (16:00→18:00)
[2018-01-28] MEDS ORDERED: Metoprolol Tartrate 25 MG Tablet PO ONE (21:04)
[2018-01-28] MEDS ORDERED: Chlorhexidine Gluconate 2% 1 Pack (2 Cloths) TOPICAL ONE (21:04)
[2018-01-28] MEDS ORDERED: Sodium Chlor 0.9% Inj 500 ML IV.SIG SCH (22:00)
[2018-01-29] MEDS: Levothyroxine 50 MCG Tablet PO SCH (06:06)
[2018-01-29] MEDS: Potassium Chloride Inj 40 MEQ in Dextrose 5% in Water Inj 1,000 ML IV.CONT SCH ×4 (06:06→14:58)
[2018-01-29] MEDS: Ciprofloxacin 250 MG Tablet PO SCH ×2 (09:41→21:42)
[2018-01-29] MEDS ORDERED: Lidocaine PF 1% Inj 5 ML Syringe INFILTRATN ONE (11:52)
[2018-01-29] MEDS ORDERED: Phenylephrine/NS 1000 MCG/10ML Syringe IV.PUSH ONE (11:52)
--- NOTE | 2018-01-29 12:41 | GIPROC ---
[facility] [address] [facility]. [facility], [address] EGD PROCEDURE REPORT EXAM DATE: 01/29/2018 PATIENT NAME: Sarah Roth MR #: [id number] BIRTHDATE: 1940 ATTENDING: Maurizio Eaton MD ORDER #: [id number] PERFORMANCE IMPROVEMENT ANALYST: Delicia Johnson and Corrine Blakely STATUS: inpatient INDICATIONS: The patient is a 77 yr old female here for an EGD due to anemia PROCEDURE PERFORMED: EGD w/ biopsy MEDICATIONS: None and Per Anesthesia. TOPICAL ANESTHETIC: none CONSENT: The patient understands the risks and benefits of the procedure and understands that these risks include, but are not limited to: sedation, allergic reaction, infection, perforation and/or bleeding. Alternative means of evaluation and treatment include, among others: physical exam, x-rays, and/or surgical intervention. The patient elects to proceed with this endoscopic procedure. medical equipment was checked for proper function. Hand hygiene and appropriate measures for infection prevention was taken. After the risks, benefits and alternatives of the procedure were thoroughly explained, Informed consent was verified, confirmed and timeout was successfully executed by the treatment team. The patient was anesthetized with topical anesthesia and the EC-3490Li (Pedi C) endoscope was introduced through the mouth and advanced to the second portion of the duodenum. Retroflexion was performed and was normal The gastroscope was then slowly withdrawn and removed. ESOPHAGUS: There was LA Class A esophagitis noted. STOMACH: There was mild gastritis in the gastric antrum. Multiple biopsies were performed using cold forceps. Sample sent for histology. DUODENUM: Multiple large non-bleeding non-bleeding, round and clean-based ulcers were found in the 2nd part of the duodenum and 3rd part duodenum. ADVERSE EVENTS: There were no complications. IMPRESSIONS: 1. There was LA Class A esophagitis noted 2. There was mild gastritis in the gastric antrum; multiple biopsies were performed 3. Multiple large non-bleeding ulcers were found in the 2nd part of the duodenum and 3rd part duodenum 4. Retroflexion was performed and was normal RECOMMENDATIONS: 1. Await biopsy results. Biopsy results will not be ready for 7-10 days. If you don't hear from us in two weeks, call our office for biopsy results. 2. Continue PPI PATIENT CONDITION: stable DISPOSITION: Observation REPEAT EXAM: NONE Maurizio Eaton MD eSigned: Maurizio Eaton MD 01/29/2018 12:41 PM cc: PATIENT NAME: Sarah Roth MR#: [id number]
--- NOTE | 2018-01-29 12:44 | GIPROC ---
[facility] [address] [facility]. [facility], [address] COLONOSCOPY PROCEDURE REPORT EXAM DATE: 01/29/2018 PATIENT NAME: Sarah Roth MR #: [id number] BIRTHDATE: 1940 ENDOSCOPIST: Maurizio Eaton MD ORDER #: [id number] PLASTIC SEWER: Delicia Johnson and Corrine Blakely STATUS: inpatient INDICATIONS: The patient is a 77 yr old female here for a colonoscopy due to anemia, non-specific PROCEDURE PERFORMED: Colonoscopy with polypectomy MEDICATIONS: None and Per Anesthesia. PREP QUALITY: good PREP TYPE:GoLytely ESTIMATED BLOOD LOSS: None CONSENT: The patient understands the risks and benefits of the procedure and understands that these risks include, but are not limited to: sedation, allergic reaction, infection, perforation and/or bleeding. Alternative means of evaluation and treatment include, among others: physical exam, x-rays, and/or surgical intervention. The patient elects to proceed with this endoscopic procedure. medical equipment was checked for proper function. Hand hygiene and appropriate measures for infection prevention was taken. After the risks, benefits and alternatives of the procedure were thoroughly explained, Informed consent was verified, confirmed and timeout was successfully executed by the treatment team. A digital exam revealed no abnormalities of the rectum The Pentax EC-3490Li endoscope was introduced through the anus and advanced to the cecum, which was identified by both the appendix and ileocecal valve. The instrument was then slowly withdrawn as the colon was fully examined. COLON FINDINGS: A small polypoid shaped sessile polyp was found at the cecum. A polypectomy was performed with cold forceps. The resection was complete and the polyp tissue was completely retrieved. A small smooth flat polyp was found in the ascending colon. A polypectomy was performed with cold forceps. The resection was complete and the polyp tissue was completely retrieved. Retroflexed views revealed internal/external hemorrhoids and Retroflexed views revealed large internal/external hemorrhoids The scope was then completely withdrawn from the patient and the procedure terminated. PROCEDURE WITHDRAWAL TIME:10minutes ADVERSE EVENTS: There were no complications. IMPRESSIONS: 1. A small sessile polyp was found at the cecum; polypectomy was performed with cold forceps 2. A small flat polyp was found in the ascending colon; polypectomy was performed with cold forceps 3. Retroflexed views revealed internal/external hemorrhoids 4. Retroflexed views revealed large internal/external hemorrhoids 5. Revealed no abnormalities of the rectum RECOMMENDATIONS: Await biopsy results. Biopsy results will not be ready for 7-10 days. If you don't hear from us in two weeks, call our office for results. RECALL: Colonoscopy, pending biopsy results Maurizio Eaton MD eSigned: Maurizio Eaton MD 01/29/2018 12:44 PM cc: PATIENT NAME: Sarah Roth MR#: [id number]
--- NOTE | 2018-01-29 19:25 | P.PNIM ---
Subjective Interval history: Mrs. Roth was afebrile with stable VS overnight. Patient was seen this evening after EGD/Colonoscopy; she reports that she is doing well at this time. Patient reports desire to eat tonight. No reported chest pain, shortness of breath, or urinary abnormalities. Physical Exam Vital signs: Vital Signs 01/28/18 20:00 01/28/18 20:15 01/29/18 00:00 Temperature 98 F 97.8 F Pulse Rate 88 67 Respiratory Rate 19 18 17 Blood Pressure 138/72 128/68 Pulse Oximetry 98 97 01/29/18 06:45 01/29/18 08:00 01/29/18 12:40 Temperature 98 F 98.1 F 98.1 F Pulse Rate 70 92 H 70 Respiratory Rate 17 18 18 Blood Pressure 127/77 136/76 135/77 Pulse Oximetry 97 97 100 01/29/18 13:13 01/29/18 16:00 Temperature 97.1 F L Pulse Rate 96 H 69 Respiratory Rate 18 Blood Pressure 137/88 Pulse Oximetry 97 Intake & Output 01/29/18 01/29/18 01/30/18 06:59 18:59 06:59 Intake Total 2019 100 / 100 Balance 2019 100 / 100 Weight 45.5 kg Intake: IV 1020 / 1020 KCl Inj 40 MEQ In D5W Inj 1,000 1020 / 1020 ML @ 84 mls/hr IV.CONT .Q12H9M [facility] Rx#:[id number] Oral 1000 / 1000 Anesthesia Amount 100 / 100 Other: # Voids 3 2 # Incontinent Voids 2 # Bowel Movements 1 # Incontinent Bowel Movements 3 Narrative: GENERAL: Patient comfortable, no distress.Thin SKIN: Warm and dry. EYES: EOM grossly I ENT: Mucous membranes moist NECK: No appreciated JVD CARDIOVASCULAR: Regular rate and rhythm. Grossly normal perfusion RESPIRATORY: CTAB; normal rate GASTROINTESTINAL: Abdomen soft, non-tender, nondistended MUSCULOSKELETAL: Grossly normal ROM and motor function NEUROLOGICAL: Awake and alert.Grossly normal CN. Grossly normal peripheral motor /sensory function PSYCHIATRIC: Calm, pleasant Results - Labs CBC & Chem 7: 01/26/18 08:38 01/28/18 09:40 Laboratory Results - last 24 hr 01/29/18 01/29/18 01/29/18 07:40 13:34 16:45 POC Glucose 95 90 114 H - Procedures NONE Assessment and Plan - Plan In summary this is a 77-year-old female patient with a medical history that is significant for hypothyroidism, insomnia, chronic pain who presents to [facility] ED with altered mental status. Per ER report the patient had apparently taken 36 tablets of Unisom over the past week. Toxic encephalopathy Seizure disorder Likely suspected overdose on Unasyn Impression: 01/29; patient seems to have normal mental status Per review of EMR, gradual improvement. MRI and EEG negative. IV acyclovir initially given but discontinued Psych was consulted; no admission needed and cleared for DC to rehab Neurology consulted- drug induced encephalopathy suspected. -Nutritional consult and therapy recommended Weakness, low BMI -Palliative care consulted -Continue PT -Software Systems Architect consulted- -Will plan to replete electrolytes and evaluate anemia further -hypokalemia- will replete -Mg stable -Will give oral calcium supplementation Depression Impression: reported suicide attempt 01/26; cleared by Psychiatry - restart patients patients remeron and paroxetine UTI Urine culture significant for E. coli Cultures and sensitivities resulted, started 01/26 cipro 250 mg BID x 3 days for simple UTI Hemoccult positive Impression: No obvious bleeding. Stable Hgb ~10.7. Distant colonoscopy but no recent studies -GI consulted -EGD- esophagitis, mild gastritis observed (biopsied). Large nonbleeding duodenal ulcers found -Colonoscopy-sessile/flat polyps removed by polypectomy; large hemorrhoids found -Diet -PPI Hypothyroidism - cont synthroid 50 mg daily COPD Impression: breathing well currently -Continue PRN duonebs Chronic back pain Narcotics have been held, currently on a high-dose of pain medication Code Status: Full code Discharge Planning: Discharge to rehab
[2018-01-29] MEDS ORDERED: Potassium Chloride 25 MEQ Effervescent Tablet NG/OG ONE (20:38)
[2018-01-30] MEDS: Potassium Chloride Inj 40 MEQ in Dextrose 5% in Water Inj 1,000 ML IV.CONT SCH ×4 (02:50→17:13)
[2018-01-30] MEDS: Levothyroxine 50 MCG Tablet PO SCH (07:06)
[2018-01-30 07:28] LABS: Baso # (Auto) 0.1 th/mm3 (0.0-0.2); Baso % (Auto) 0.5 % (0.0-2.0); Eos # (Auto) 0.3 th/mm3 (0.0-0.4); Eos % (Auto) 2.9 % (0.0-4.0); Hematocrit 37.1 % (35.0-46.0); Hemoglobin 12.2 gm/dL (11.6-15.3); Lymph # (Auto) 1.2 th/mm3 (1.0-4.8); Lymph % (Auto) 10.7 % (9.0-44.0); Mean Corpuscular HGB Conc 32.8 % (32.0-36.0); Mean Corpuscular Hemoglobin 30.3 pg (27.0-34.0); Mean Corpuscular Volume 92.4 fL (80.0-100.0); Mean Platelet Volume 9.1 fL (7.0-11.0); Mono # (Auto) 1.2 th/mm3 (0.0-0.9); Mono % (Auto) 10.3 % (0.0-8.0); Neut # (Auto) 8.7 th/mm3 (1.8-7.7); Neut % (Auto) 75.6 % (16.0-70.0); Platelet Count 271 th/mm3 (150-450); Red Blood Count 4.01 mil/mm3 (4.00-5.30); Red Cell Distribution Width 15.5 % (11.6-17.2); White Blood Count 11.5 th/mm3 (4.0-11.0)
[2018-01-30 08:15] LABS: Albumin 2.5 g/dL (3.4-5.0); Calcium 7.4 mg/dL (8.5-10.1); Carbon Dioxide 20.6 meq/L (21.0-32.0); Potassium 3.6 meq/L (3.5-5.1); Total Protein 6.1 g/dL (6.4-8.2)
[2018-01-30] MEDS: Ciprofloxacin 250 MG Tablet PO SCH ×2 (10:01→22:15)
--- NOTE | 2018-01-30 13:24 | P.PNNEU ---
Subjective Subjective Comments: no headache, no focal weakness, no cp, no dyspnea Active Medications: Active Medications Acetaminophen (Tylenol Supp) 650 mg RECTAL Q6H PRN PRN Reason: FEVER Last Admin: 01/23/18 15:27 Dose: 650 mg Albuterol (Duoneb Neb (Prn)) 1 ampul NEB Q2HR NEB PRN PRN Reason: SHORTNESS OF BREATH Bisacodyl (Dulcolax Supp) 10 mg RECTAL DAILY PRN PRN Reason: SEVERE CONSITIPATION Ciprofloxacin HCl (Cipro) 250 mg PO Q12HR [facility] Last Admin: 01/30/18 10:01 Dose: 250 mg Clonidine HCl (Catapres) 0.1 mg PO Q6H PRN PRN Reason: For SBP >/= 180, DBP >/= 100 Flumazenil (Romazecon Inj) 0.2 mg IV.PUSH Q1M PRN PRN Reason: OVERSEDATION Haloperidol Lactate (Haldol Inj) 1 mg IV.PUSH Q15M PRN PRN Reason: for severe agitation Last Admin: 01/23/18 11:32 Dose: 1 mg Potassium Chloride 40 meq/ (Dextrose) 1,020 mls @ 84 mls/hr IV.CONT .Q12H9M [facility] Last Admin: 01/30/18 02:50 Dose: Not Given Sodium Chloride (Ns Inj) 500 mls @ 30 mls/hr IV.SIG .Q10H [facility] Last Admin: 01/29/18 14:58 Dose: Not Given Levothyroxine Sodium (Synthroid) 50 mcg PO DAILY@0600 [facility] Last Admin: 01/30/18 07:06 Dose: 50 mcg Lorazepam (Ativan) 1 mg PO Q4H PRN PRN Reason: for CIWA 8-10 Last Admin: 01/23/18 05:01 Dose: 1 mg Lorazepam (Ativan) 2 mg PO Q2H PRN PRN Reason: for CIWA 11-14 Lorazepam (Ativan Inj) 2 mg IV.PUSH Q2H PRN PRN Reason: for CIWA 11-14 Last Admin: 01/24/18 03:00 Dose: 2 mg Lorazepam (Ativan Inj) 2 mg IV.PUSH Q1H PRN PRN Reason: for CIWA 15-20 Lorazepam (Ativan Inj) 2 mg IV.PUSH Q15M PRN PRN Reason: for CIWA > 20 Lorazepam (Ativan Inj) 1 mg IV.PUSH Q4H PRN PRN Reason: for CIWA 8-10 Last Admin: 01/22/18 17:56 Dose: 1 mg Mirtazapine (Remeron Soltab Odt) 15 mg PO HS [facility] Last Admin: 01/29/18 21:42 Dose: 15 mg Pantoprazole Sodium (Protonix) 40 mg PO DAILY [facility] Last Admin: 01/30/18 10:01 Dose: 40 mg Paroxetine HCl (Paxil) 40 mg PO DAILY [facility] Last Admin: 01/30/18 10:01 Dose: 40 mg Sennosides (Senokot) 17.2 mg PO Q12H PRN PRN Reason: Moderate Constipation Sodium Chloride (Ns Flush) 2 ml IV.FLUSH PRN PRN PRN Reason: FLUSH AFTER USING IV ACCESS Thiamine HCl (Vitamin B1) 100 mg PO DAILY [facility] Last Admin: 01/30/18 10:01 Dose: 100 mg Allergies/Adverse Reactions: Allergies Allergy/AdvReac Type Severity Reaction Status Date / Time pentazocine Allergy Severe Hallucinati Verified 01/22/18 04:04 ons promethazine Allergy Severe Restlessnes Verified 01/22/18 04:04 s Review of Systems All other systems reviewed negative except as stated in HPI Physical Exam Vital signs: Vital Signs 01/29/18 16:00 01/29/18 21:30 01/30/18 00:00 Temperature 97.1 F L 98 F 98 F Pulse Rate 69 67 60 Respiratory Rate 18 18 Blood Pressure 137/88 125/80 120/76 Pulse Oximetry 97 96 97 01/30/18 05:30 01/30/18 08:00 01/30/18 10:26 Temperature 98 F 98 F Pulse Rate 68 108 H 109 H Respiratory Rate 19 18 Blood Pressure 119/80 107/70 Pulse Oximetry 96 100 01/30/18 11:32 Temperature 98.1 F Pulse Rate 114 H Respiratory Rate 18 Blood Pressure 126/76 Pulse Oximetry 99 Intake & Output 01/29/18 01/30/18 01/30/18 18:59 06:59 18:59 Intake Total 100 / 100 1920 / 1920 Balance 100 / 100 1920 / 1920 Intake: IV 1020 / 1020 KCl Inj 40 MEQ In D5W Inj 1,000 1020 / 1020 ML @ 84 mls/hr IV.CONT .Q12H9M [facility] Rx#:[id number] Oral 900 / 900 Anesthesia Amount 100 / 100 Other: # Voids 2 3 Date of Last Bowel Movement 01/28/18 # Bowel Movements 1 3 1 Narrative: GENERAL: Patient lying in bed. Appears comfortable. SKIN: Warm and dry. HEAD: Atraumatic. Normocephalic. EYES: Pupils equal and round. No scleral icterus. No injection or drainage. ENT: No nasal bleeding or discharge. Mucous membranes pink and moist. NECK: Trachea midline. No JVD. CARDIOVASCULAR: Regular rate and rhythm. RESPIRATORY: No accessory muscle use. Clear to auscultation. Breath sounds equal bilaterally. GASTROINTESTINAL: Abdomen soft, non-tender, nondistended. Hepatic and splenic margins not palpable. MUSCULOSKELETAL: Extremities without clubbing, cyanosis, or edema. No obvious deformities. NEUROLOGICAL: alert, Oriented 3 follows no tremors no facial asymmetry visual barros grossly full blink to threat, no drift PSYCHIATRIC: Calm pleasant - Constitutional no acute distress - Routine HEENT Exam Head: Present: normocephalic Objective Laboratory Results - last 24 hr 01/29/18 01/29/18 01/29/18 13:34 16:45 21:54 WBC RBC Hgb Hct MCV MCH MCHC RDW Plt Count MPV Neut % (Auto) Lymph % (Auto) [place] % (Auto) Eos % (Auto) Baso % (Auto) Neut # (Auto) Lymph # (Auto) [place] # (Auto) Eos # (Auto) Baso # (Auto) WBC Differential Differential Comment Sodium Potassium Chloride Carbon Dioxide Anion Gap BUN Creatinine Estimated GFR POC Glucose 90 114 H 124 H Random Glucose Calcium Prot Corrected Calcium Total Bilirubin AST ALT Alkaline Phosphatase Total Protein Albumin 01/30/18 01/30/18 01/30/18 06:01 06:01 07:19 WBC 11.5 H RBC 4.01 Hgb 12.2 Hct 37.1 MCV 92.4 MCH 30.3 MCHC 32.8 RDW 15.5 Plt Count 271 D MPV 9.1 Neut % (Auto) 75.6 H Lymph % (Auto) 10.7 [place] % (Auto) 10.3 H Eos % (Auto) 2.9 Baso % (Auto) 0.5 Neut # (Auto) 8.7 H Lymph # (Auto) 1.2 [place] # (Auto) 1.2 H Eos # (Auto) 0.3 Baso # (Auto) 0.1 WBC Differential . Differential Comment Auto diff final Sodium 148 H Potassium 3.6 Chloride 116 H Carbon Dioxide 20.6 L Anion Gap 11 BUN 4 L Creatinine 0.67 Estimated GFR 85 L POC Glucose 134 H Random Glucose 95 Calcium 7.4 L* Prot Corrected Calcium 7.9 L Total Bilirubin 0.3 AST 58 H ALT 35 Alkaline Phosphatase 157 H Total Protein 6.1 L Albumin 2.5 L 01/30/18 11:31 WBC RBC Hgb Hct MCV MCH MCHC RDW Plt Count MPV Neut % (Auto) Lymph % (Auto) [place] % (Auto) Eos % (Auto) Baso % (Auto) Neut # (Auto) Lymph # (Auto) [place] # (Auto) Eos # (Auto) Baso # (Auto) WBC Differential Differential Comment Sodium Potassium Chloride Carbon Dioxide Anion Gap BUN Creatinine Estimated GFR POC Glucose 109 Random Glucose Calcium Prot Corrected Calcium Total Bilirubin AST ALT Alkaline Phosphatase Total Protein Albumin Review/Management - Diagnosis (1) Acute encephalopathy Code(s): G93.40 - Encephalopathy, unspecified Status: Acute Current Visit: Yes (2) Altered mental status Code(s): R41.82 - Altered mental status, unspecified Status: Acute Current Visit: Yes (3) Acute drug overdose Code(s): T50.901A - Poisoning by unspecified drugs, medicaments and biological substances, accidental (unintentional), initial encounter Status: Acute Current Visit: Yes - Review/Management Plan: Oral buccal dyskinesias, encephalopathy likely related to excessive medication intake and thus likely a drug-induced encephalopathy UA essentially negative. Mild leukocytosis EEG artifact no obvious seizure activity MRI brain did not show any acute stroke Recommendations doing very well therapy nutritional support No driving Supervision over her medications at home may require home health care (2) Altered mental status Qualifiers: Altered mental status type: disorientation Qualified Code(s): R41.0 - Disorientation, unspecified (3) Acute drug overdose Qualifiers: Encounter type: initial encounter Injury intent: undetermined intent Qualified Code(s): T50.904A - Poisoning by unspecified drugs, medicaments and biological substances, undetermined, initial encounter
--- NOTE | 2018-01-30 14:54 | P.PNPAL ---
Reason for Visit Reason for visit: a. To assist with evaluation and management of symptoms including: weakness b. To assist medical decision maker(s) with: better understanding of current medical conditions; weighing benefits/burdens of medical treatment options; making medical treatment decisions. Subjective Subjective/Interval History: Patient seen to evaluate symptoms of weakness and assist in goals of medical treatment. She is alert and oriented today, awaiting her lunch. She was planing of her weakness when getting out of bed yesterday. She stated she was currently on bedrest, which is not born out her activity orders. Activity orders state ambulate with assist. She states when she got out of bed yesterday to go down for her GI procedure, she was barely able to walk and felt very weak. Required a 2 person assist to ambulate her to the stretcher. She was concerned because she tended to fall backwards. She has been bedbound and quite ill for 9 days and will likely require rehabilitative services prior to discharge home. Daughter had previously requested [place] evaluation which was dressed with case management. They have agreed to request a [place] evaluation. Otherwise family is leaning towards [facility] for short-term rehab prior to returning patient home. Agree with neurology opinion that home health care medication supervision would be of benefit. . Family/Friend Interactions: No family at bedside today. Spoke with patient's daughter extensively yesterday regarding discharge plans. Advance Directives Living Will: Never completed Health Care Surrogate: Never completed Durable Power of Retail Leasing Agent: Never completed Objective Vital Signs: Vital Signs 01/29/18 16:00 01/29/18 21:30 01/30/18 00:00 Temperature 97.1 F L 98 F 98 F Pulse Rate 69 67 60 Respiratory Rate 18 18 Blood Pressure 137/88 125/80 120/76 Pulse Oximetry 97 96 97 01/30/18 05:30 01/30/18 08:00 01/30/18 10:26 Temperature 98 F 98 F Pulse Rate 68 108 H 109 H Respiratory Rate 19 18 Blood Pressure 119/80 107/70 Pulse Oximetry 96 100 01/30/18 11:32 01/30/18 13:34 Temperature 98.1 F Pulse Rate 114 H 116 H Respiratory Rate 18 Blood Pressure 126/76 Pulse Oximetry 99 Intake & Output 01/29/18 01/30/18 01/30/18 18:59 06:59 18:59 Intake Total 100 / 100 1920 / 1920 Balance 100 / 100 1919 Intake: IV 1020 / 1020 KCl Inj 40 MEQ In D5W Inj 1,000 1020 / 1020 ML @ 84 mls/hr IV.CONT .Q12H9M [facility] Rx#:[id number] Oral 900 / 900 Anesthesia Amount 100 / 100 Other: # Voids 2 3 Date of Last Bowel Movement 01/28/18 # Bowel Movements 1 3 1 Physical Exam: CONSTITUTIONAL/GENERAL: This is an elderly, cachectic female, sitting up in a chair, in no acute distress. TUBES/LINES/DRAINS: PIV. SKIN: No jaundice, rashes, or lesions. Ecchymoses on upper extremities. No wounds seen anteriorly. Skin temperature appropriate. Not diaphoretic. HEAD: Atraumatic. Normocephalic. EYES: Pupils equal and round and reactive. Extraocular motions intact. No scleral icterus. No injection or drainage. Fundi not examined. ENT: Hearing grossly normal. Nose without bleeding or purulent drainage. Throat without visible erythema, exudates, masses, or lesions. NECK: Trachea midline. Supple, nontender. No palpable thyroid enlargement or nodularity. CARDIOVASCULAR: Regular rate and rhythm with 2/6 systolic ejection murmur, without gallops, or rubs. No JVD. Peripheral pulses symmetric. RESPIRATORY/CHEST: Symmetric, unlabored respirations. Clear, diminished to auscultation. Breath sounds equal bilaterally. No wheezes, rales, or rhonchi. GASTROINTESTINAL: Abdomen soft, non-tender, nondistended. No hepato-splenomegaly , or palpable masses. No guarding. Bowel sounds present. GENITOURINARY: Without palpable bladder distension. MUSCULOSKELETAL: Extremities without clubbing, cyanosis, or edema. Generalized weakness in all extremities. No mottling or clubbing. NEUROLOGICAL: Awake, oriented 3, lying in bed, conversing animatedly with clear speech and congruent thoughts. PSYCHIATRIC: Appropriate, calm. . Diagnostic Tests Laboratory: Laboratory Results - last 72 hr 01/27/18 01/28/18 01/28/18 18:02 08:12 09:40 WBC RBC Hgb Hct MCV MCH MCHC RDW Plt Count MPV Neut % (Auto) Lymph % (Auto) [place] % (Auto) Eos % (Auto) Baso % (Auto) Neut # (Auto) Lymph # (Auto) [place] # (Auto) Eos # (Auto) Baso # (Auto) WBC Differential Differential Comment Sodium 142 Potassium 3.3 L Chloride 111 H Carbon Dioxide 22.2 Anion Gap 9 BUN 2 L Creatinine 0.54 Estimated GFR Greater than 89 POC Glucose 125 H 108 Random Glucose 118 H Calcium 7.2 L* Prot Corrected Calcium 7.8 L Total Bilirubin AST ALT Alkaline Phosphatase Total Protein 5.9 L D Albumin 01/28/18 01/28/18 01/29/18 11:35 18:39 07:40 WBC RBC Hgb Hct MCV MCH MCHC RDW Plt Count MPV Neut % (Auto) Lymph % (Auto) [place] % (Auto) Eos % (Auto) Baso % (Auto) Neut # (Auto) Lymph # (Auto) [place] # (Auto) Eos # (Auto) Baso # (Auto) WBC Differential Differential Comment Sodium Potassium Chloride Carbon Dioxide Anion Gap BUN Creatinine Estimated GFR POC Glucose 122 H 89 95 Random Glucose Calcium Prot Corrected Calcium Total Bilirubin AST ALT Alkaline Phosphatase Total Protein Albumin 01/29/18 01/29/18 01/29/18 13:34 16:45 21:54 WBC RBC Hgb Hct MCV MCH MCHC RDW Plt Count MPV Neut % (Auto) Lymph % (Auto) [place] % (Auto) Eos % (Auto) Baso % (Auto) Neut # (Auto) Lymph # (Auto) [place] # (Auto) Eos # (Auto) Baso # (Auto) WBC Differential Differential Comment Sodium Potassium Chloride Carbon Dioxide Anion Gap BUN Creatinine Estimated GFR POC Glucose 90 114 H 124 H Random Glucose Calcium Prot Corrected Calcium Total Bilirubin AST ALT Alkaline Phosphatase Total Protein Albumin 01/30/18 01/30/18 01/30/18 06:01 06:01 07:19 WBC 11.5 H RBC 4.01 Hgb 12.2 Hct 37.1 MCV 92.4 MCH 30.3 MCHC 32.8 RDW 15.5 Plt Count 271 D MPV 9.1 Neut % (Auto) 75.6 H Lymph % (Auto) 10.7 [place] % (Auto) 10.3 H Eos % (Auto) 2.9 Baso % (Auto) 0.5 Neut # (Auto) 8.7 H Lymph # (Auto) 1.2 [place] # (Auto) 1.2 H Eos # (Auto) 0.3 Baso # (Auto) 0.1 WBC Differential . Differential Comment Auto diff final Sodium 148 H Potassium 3.6 Chloride 116 H Carbon Dioxide 20.6 L Anion Gap 11 BUN 4 L Creatinine 0.67 Estimated GFR 85 L POC Glucose 134 H Random Glucose 95 Calcium 7.4 L* Prot Corrected Calcium 7.9 L Total Bilirubin 0.3 AST 58 H ALT 35 Alkaline Phosphatase 157 H Total Protein 6.1 L Albumin 2.5 L 01/30/18 11:31 WBC RBC Hgb Hct MCV MCH MCHC RDW Plt Count MPV Neut % (Auto) Lymph % (Auto) [place] % (Auto) Eos % (Auto) Baso % (Auto) Neut # (Auto) Lymph # (Auto) [place] # (Auto) Eos # (Auto) Baso # (Auto) WBC Differential Differential Comment Sodium Potassium Chloride Carbon Dioxide Anion Gap BUN Creatinine Estimated GFR POC Glucose 109 Random Glucose Calcium Prot Corrected Calcium Total Bilirubin AST ALT Alkaline Phosphatase Total Protein Albumin Result Diagrams: 01/30/18 06:01 01/30/18 06:01 Imaging: Chest X-Ray 01/21/18 23:26 CONCLUSION: No acute cardiopulmonary disease demonstrated. Head CT 01/21/18 23:26 CONCLUSION: Motion degraded study. No acute abnormality demonstrated. . Head MRI 01/23/18 09:17 CONCLUSION: 1. No acute abnormality. 2. Atrophy. Assessment and Plan Pertinent Non-Medical Issues: Psychosocial: Patient was born in [place] and moved to [place] many years ago. She raised 8 children, 7 of home remain alive. 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 She and her reside with their son for support. Spiritual: Infection Prevention Practitioner available. Legal: No advance directives completed. Ethical issues impacting care: None noted. . Important Contacts: Turner Son Jasbir Daughter Christi . Prognosis: Her prognosis is guarded. She is 77 with multiple medical issues to include COPD hypothyroidism pain, hypertension, seizure disorder and encephalopathy with increasingly frequent ED visits. She has chronic nutrition and electrolyte derangements and is in chronic pain. While she has no terminal disease, she has progressively worsening debility and is at risk for continued decline, hospitalizations and complications. . Code Status: Full Code Plan: PLAN: Legal decision maker: Patient is not capacitated to make her own decisions. Per [place] statutes, her will serve as her decision-maker, supported by her children. No prior healthcare surrogate's or living will are available. Goals: To be determined CODE STATUS: FULL CODE by default SYMPTOMS: * Weakness: She has generalized weakness from being sedentary. It is the recommendation of physical therapy, and the request of the patient to be referred for skilled rehabilitation prior to discharge home. At the daughter's request, case management was approached to have [facility] evaluate. If not accepted proximal, family is leaning toward [facility] for short-term rehab prior to returning home. No further recommendations at this time. Palliative care will continue to follow the patient during hospital course as condition evolves, to assist patient/decision-maker with understanding of their medical conditions, weighing benefits/burdens of treatment options, for clarification of goals of treatment. Additionally will assist with any symptoms of palliative concern. . Attestation Attestation: To help prompt me to consider important information that might be impacting today's encounter and assessment, information from prior notes written by myself or my colleagues may have been "brought forward" into today's note. My signature on this note, however, is an attestation that I personally performed the exam, history, and/or decision-making noted today, and, unless otherwise indicated, the interactions with patient, family, and staff as well as the review of records all occurred today. I also attest that the listed assessment and stated plan reflect my best clinical judgment today based on the combination of historical information, prior notes, and today's exam/ interactions. When time spent is documented, it refers only to time spent today by the signer, or if indicated, combined time spent today by collaborating physician/nurse practitioner. .
--- NOTE | 2018-01-30 16:56 | P.PNIM ---
Subjective Interval history: Mrs. Roth was afebrile with tachycardia today (HR in 110's).per nursing staff , patient did not have IV access last night Patient reports that she is feeling well. She has some weakness but states that she wants to rehab aggressively. No chest pain, shortness of breath, abnormal bowel movements, or abnormal urination reported. Patient seen in the company of her daughter today. Physical Exam Vital signs: Vital Signs 01/29/18 21:30 01/30/18 00:00 01/30/18 05:30 Temperature 98 F 98 F 98 F Pulse Rate 67 60 68 Respiratory Rate 18 19 Blood Pressure 125/80 120/76 119/80 Pulse Oximetry 96 97 96 01/30/18 08:00 01/30/18 10:26 01/30/18 11:32 Temperature 98 F 98.1 F Pulse Rate 108 H 109 H 114 H Respiratory Rate 18 18 Blood Pressure 107/70 126/76 Pulse Oximetry 100 99 01/30/18 13:34 01/30/18 16:09 Temperature 97.9 F Pulse Rate 116 H 103 H Respiratory Rate 18 Blood Pressure 121/76 Pulse Oximetry 100 Intake & Output 01/29/18 01/30/18 01/30/18 18:59 06:59 18:59 Intake Total 100 / 100 1919 / 1920 Balance 100 / 100 192 / 0 Intake: IV 1020 / 1020 KCl Inj 40 MEQ In D5W Inj 1,000 1020 / 1020 ML @ 84 mls/hr IV.CONT .Q12H9M [facility] Rx#:[id number] Oral 900 / 900 Anesthesia Amount 100 / 100 Other: # Voids 2 3 Date of Last Bowel Movement 01/28/18 # Bowel Movements 1 3 1 Narrative: GENERAL: Patient comfortable, no distress.Thin SKIN: Warm and dry. EYES: EOM grossly I ENT: Mucous membranes moist CARDIOVASCULAR: mild tachycardia; regular rhythm. Grossly normal perfusion RESPIRATORY: CTAB; normal rate GASTROINTESTINAL: Abdomen soft, non-tender, nondistended MUSCULOSKELETAL: Grossly normal ROM and motor function NEUROLOGICAL: Awake and alert. Grossly normal CN. Grossly normal peripheral motor/sensory function PSYCHIATRIC: Calm, pleasant Results - Labs CBC & Chem 7: 01/30/18 06:01 01/30/18 06:01 Laboratory Results - last 24 hr 01/29/18 01/30/18 01/30/18 21:54 06:01 06:01 WBC 11.5 H RBC 4.01 Hgb 12.2 Hct 37.1 MCV 92.4 MCH 30.3 MCHC 32.8 RDW 15.5 Plt Count 271 D MPV 9.1 Neut % (Auto) 75.6 H Lymph % (Auto) 10.7 [place] % (Auto) 10.3 H Eos % (Auto) 2.9 Baso % (Auto) 0.5 Neut # (Auto) 8.7 H Lymph # (Auto) 1.2 [place] # (Auto) 1.2 H Eos # (Auto) 0.3 Baso # (Auto) 0.1 WBC Differential . Differential Comment Auto diff final Sodium 148 H Potassium 3.6 Chloride 116 H Carbon Dioxide 20.6 L Anion Gap 11 BUN 4 L Creatinine 0.67 Estimated GFR 85 L POC Glucose 124 H Random Glucose 95 Calcium 7.4 L* Prot Corrected Calcium 7.9 L Total Bilirubin 0.3 AST 58 H ALT 35 Alkaline Phosphatase 157 H Total Protein 6.1 L Albumin 2.5 L 01/30/18 01/30/18 07:19 11:31 WBC RBC Hgb Hct MCV MCH MCHC RDW Plt Count MPV Neut % (Auto) Lymph % (Auto) [place] % (Auto) Eos % (Auto) Baso % (Auto) Neut # (Auto) Lymph # (Auto) [place] # (Auto) Eos # (Auto) Baso # (Auto) WBC Differential Differential Comment Sodium Potassium Chloride Carbon Dioxide Anion Gap BUN Creatinine Estimated GFR POC Glucose 134 H 109 Random Glucose Calcium Prot Corrected Calcium Total Bilirubin AST ALT Alkaline Phosphatase Total Protein Albumin - Procedures NONE Assessment and Plan - Plan In summary this is a 77-year-old female patient with a medical history that is significant for hypothyroidism, insomnia, chronic pain who presents to [place] ED with altered mental status. Per ER report the patient had apparently taken 36 tablets of Unisom over the past week. Toxic encephalopathy Seizure disorder Likely suspected overdose on Unasyn Impression: 01/30; patient seems to have normal mental status Per review of EMR, gradual improvement. MRI and EEG negative. IV acyclovir initially given but discontinued Psych was consulted; no admission needed and cleared for DC to rehab Neurology consulted- drug induced encephalopathy suspected. -Nutritional consult and therapy recommended Weakness, low BMI -Palliative care consulted -Continue PT -Drain Layer consulted- -Will plan to replete electrolytes and evaluate anemia further -hypokalemia- stable today -Mg stable -Hypocalcemia- oral calcium started Hemoccult positive Impression: No obvious bleeding. Stable Hgb ~10.7. Distant colonoscopy but no recent studies -GI consulted -EGD- esophagitis, mild gastritis observed (biopsied). Large nonbleeding duodenal ulcers found -Colonoscopy-sessile/flat polyps removed by polypectomy; large hemorrhoids found -Diet as tolerated -PPI- Pantoprazole 40mg daily UTI Urine culture significant for E. coli Cultures and sensitivities resulted, started 01/26 cipro 250 mg BID Tachycardia Impression: Today in ~110's; this was previous in hospitalization. Possible decreased IVF overnight. Also, mild WBC elevation today to 11.5 -will increase maintenance to 125ml/hr -Will repeat UA to check for UTI clearance Depression Impression: reported suicide attempt 01/26; cleared by Psychiatry - restart patients patients remeron and paroxetine Hypothyroidism - cont synthroid 50 mg daily COPD Impression: breathing well currently -Continue PRN duonebs Chronic back pain Narcotics have been held, currently on a high-dose of pain medication DVT PPX -SCD's; recent bleed Code Status: Full code Discharge Planning: Discharge to rehab
--- NOTE | 2018-01-30 18:04 | P.PNGI ---
Subjective Interval history: Patient is resting in the bed family members in the room No obvious bleeding nausea or vomiting patient states she is feeling much better <Geneva Almeida - Last Filed: 01/30/18 18:05> Physical Exam Vital signs: Vital Signs 01/29/18 21:30 01/30/18 00:00 01/30/18 05:30 Temperature 98 F 98 F 98 F Pulse Rate 67 60 68 Respiratory Rate 18 19 Blood Pressure 125/80 120/76 119/80 Pulse Oximetry 96 97 96 01/30/18 08:00 01/30/18 10:26 01/30/18 11:32 Temperature 98 F 98.1 F Pulse Rate 108 H 109 H 114 H Respiratory Rate 18 18 Blood Pressure 107/70 126/76 Pulse Oximetry 100 99 01/30/18 13:34 01/30/18 16:09 01/30/18 17:00 Temperature 97.9 F Pulse Rate 116 H 103 H 124 H Respiratory Rate 18 Blood Pressure 121/76 Pulse Oximetry 100 Intake & Output 01/29/18 01/30/18 01/30/18 18:59 06:59 18:59 Intake Total 100 / 100 1920 / 1920 Balance 100 / 100 1920 / 1920 Intake: IV 1020 / 1020 KCl Inj 40 MEQ In D5W Inj 1,000 1020 / 1020 ML @ 84 mls/hr IV.CONT .Q12H9M [facility] Rx#:[id number] Oral 900 / 900 Anesthesia Amount 100 / 100 Other: # Voids 2 3 Date of Last Bowel Movement 01/28/18 # Bowel Movements 1 3 1 - Constitutional no acute distress, chronically ill appearing - Routine HEENT Exam Head: Present: normocephalic ENT: Present: mucous membranes dry - Routine Respiratory Exam Present: accessory muscle use (Even, unlabored at rest) - Routine Abdominal Exam Present: soft, normoactive bowel sounds (Round, no abdominal pain) - Routine Skin Exam Present: intact <Geneva Almeida - Last Filed: 01/30/18 18:05> Vital signs: Vital Signs 01/30/18 08:00 01/30/18 10:26 01/30/18 11:32 Temperature 98 F 98.1 F Pulse Rate 108 H 109 H 114 H Respiratory Rate 18 18 Blood Pressure 107/70 126/76 Pulse Oximetry 100 99 01/30/18 13:34 01/30/18 16:09 01/30/18 17:00 Temperature 97.9 F Pulse Rate 116 H 103 H 124 H Respiratory Rate 18 Blood Pressure 121/76 Pulse Oximetry 100 01/30/18 20:00 01/31/18 00:00 01/31/18 04:00 Temperature 97.8 F 98.3 F 98.8 F Pulse Rate 115 H 118 H 117 H Respiratory Rate 18 18 18 Blood Pressure 127/80 142/70 H 135/77 Pulse Oximetry 98 98 98 Intake & Output 01/30/18 01/31/18 01/31/18 18:59 06:59 18:59 Intake Total 1000 / 1000 Balance 1000 / 1000 Weight 57.9 kg Intake: IV 1000 / 1000 NS + KCl 20 mEq Inj 1,000 ML @ 1000 / 1000 125 mls/hr IV.CONT .Q8H [facility] Rx# :[id number] Other: # Incontinent Voids 1 Date of Last Bowel Movement 01/31/18 # Bowel Movements 1 1 # Incontinent Bowel Movements 1 <Maurizio Eaton A - Last Filed: 01/31/18 07:21> Results - Labs CBC & Chem 7: 01/30/18 06:01 01/30/18 06:01 Laboratory Results - last 24 hr 01/29/18 01/30/18 01/30/18 21:54 06:01 06:01 WBC 11.5 H RBC 4.01 Hgb 12.2 Hct 37.1 MCV 92.4 MCH 30.3 MCHC 32.8 RDW 15.5 Plt Count 271 D MPV 9.1 Neut % (Auto) 75.6 H Lymph % (Auto) 10.7 [place] % (Auto) 10.3 H Eos % (Auto) 2.9 Baso % (Auto) 0.5 Neut # (Auto) 8.7 H Lymph # (Auto) 1.2 [place] # (Auto) 1.2 H Eos # (Auto) 0.3 Baso # (Auto) 0.1 WBC Differential . Differential Comment Auto diff final Sodium 148 H Potassium 3.6 Chloride 116 H Carbon Dioxide 20.6 L Anion Gap 11 BUN 4 L Creatinine 0.67 Estimated GFR 85 L POC Glucose 124 H Random Glucose 95 Calcium 7.4 L* Prot Corrected Calcium 7.9 L Total Bilirubin 0.3 AST 58 H ALT 35 Alkaline Phosphatase 157 H Total Protein 6.1 L Albumin 2.5 L 01/30/18 01/30/18 01/30/18 07:19 11:31 17:17 WBC RBC Hgb Hct MCV MCH MCHC RDW Plt Count MPV Neut % (Auto) Lymph % (Auto) [place] % (Auto) Eos % (Auto) Baso % (Auto) Neut # (Auto) Lymph # (Auto) [place] # (Auto) Eos # (Auto) Baso # (Auto) WBC Differential Differential Comment Sodium Potassium Chloride Carbon Dioxide Anion Gap BUN Creatinine Estimated GFR POC Glucose 134 H 109 115 H Random Glucose Calcium Prot Corrected Calcium Total Bilirubin AST ALT Alkaline Phosphatase Total Protein Albumin - Procedures NONE <Geneva Almeida - Last Filed: 01/30/18 18:05> - Labs CBC & Chem 7: 01/30/18 06:01 01/30/18 06:01 Laboratory Results - last 24 hr 01/30/18 01/30/18 01/30/18 06:01 06:01 07:19 WBC 11.5 H RBC 4.01 Hgb 12.2 Hct 37.1 MCV 92.4 MCH 30.3 MCHC 32.8 RDW 15.5 Plt Count 271 D MPV 9.1 Neut % (Auto) 75.6 H Lymph % (Auto) 10.7 [place] % (Auto) 10.3 H Eos % (Auto) 2.9 Baso % (Auto) 0.5 Neut # (Auto) 8.7 H Lymph # (Auto) 1.2 [place] # (Auto) 1.2 H Eos # (Auto) 0.3 Baso # (Auto) 0.1 WBC Differential . Differential Comment Auto diff final Sodium 148 H Potassium 3.6 Chloride 116 H Carbon Dioxide 20.6 L Anion Gap 11 BUN 4 L Creatinine 0.67 Estimated GFR 85 L POC Glucose 134 H Random Glucose 95 Calcium 7.4 L* Prot Corrected Calcium 7.9 L Total Bilirubin 0.3 AST 58 H ALT 35 Alkaline Phosphatase 157 H Total Protein 6.1 L Albumin 2.5 L 01/30/18 01/30/18 01/30/18 11:31 17:17 20:48 WBC RBC Hgb Hct MCV MCH MCHC RDW Plt Count MPV Neut % (Auto) Lymph % (Auto) [place] % (Auto) Eos % (Auto) Baso % (Auto) Neut # (Auto) Lymph # (Auto) [place] # (Auto) Eos # (Auto) Baso # (Auto) WBC Differential Differential Comment Sodium Potassium Chloride Carbon Dioxide Anion Gap BUN Creatinine Estimated GFR POC Glucose 109 115 H 141 H Random Glucose Calcium Prot Corrected Calcium Total Bilirubin AST ALT Alkaline Phosphatase Total Protein Albumin <Maurizio Eaton - Last Filed: 01/31/18 07:21> Assessment and Plan - Plan GI bleed, Hemoccult positive stool on 01/23/2018, could be related to gastritis or inflammation secondary to the 36 Unasyn tablets she took before admission. Currently patient denies any symptoms of abdominal pain nausea vomiting diarrhea or constipation. Any initial abdominal pain is now more controlled with PPI. Colonoscopy done many years ago, poor historian and unknown findings Anemia could be related to acute or chronic disease. Generalized decrease in hemoglobin during this admission. No previous EGD in the past Labs initially showed hemoglobin 12.2 on admission now 10.7, and patient is stable from the medical and psych standpoint for further testing/since patient is planning to go to rehab facility will consider EGD colonoscopy inpatient setting PT/INR 1.3, probable related to shock liver and patient's medication overdose 01/30/2018 patient is resting in the bed states she is feeling much better without any nausea or vomiting or current abdominal pain patient is status post EGD and colonoscopy on 01/29/2018 which revealed LA class a esophagitis, gastritis , large nonbleeding ulcers second part of the duodenum and third part. Colonoscopy findings include small sessile polyp in the cecum, small flat polyp in the ascending colon, internal/external hemorrhoids, biopsies are pending Discussed with patient reflux precautions, monitor hemoglobin. As long as patient can tolerate food she shows improvement from a GI perspective. Will need to follow her in the office for biopsy results and plan of care after her discharge. Plan Diet as tolerated Biopsies pending Monitor labs with special attention to hemoglobin and any bleeding Reflux precautions Supportive care PPI Patient was seen per myself and Dr. Eaton, note was written on his behalf <Geneva Almeida - Last Filed: 01/30/18 18:05> - Attending Attestation Plan as above, follow up as outpatient for biopsy results. Will sign off for now. <Maurizio Eaton - Last Filed: 01/31/18 07:21>
[2018-01-31] MEDS: Levothyroxine 50 MCG Tablet PO SCH (06:25)
[2018-01-31 08:06] LABS: Baso % (Auto) 0.3 % (0.0-2.0); Eos # (Auto) 0.3 th/mm3 (0.0-0.4); Eos % (Auto) 2.6 % (0.0-4.0); Hematocrit 35.2 % (35.0-46.0); Hemoglobin 11.6 gm/dL (11.6-15.3); Lymph # (Auto) 1.3 th/mm3 (1.0-4.8); Lymph % (Auto) 13.4 % (9.0-44.0); Mean Corpuscular HGB Conc 32.8 % (32.0-36.0); Mean Corpuscular Hemoglobin 30.3 pg (27.0-34.0); Mean Corpuscular Volume 92.5 fL (80.0-100.0); Mean Platelet Volume 8.7 fL (7.0-11.0); Neut # (Auto) 7.3 th/mm3 (1.8-7.7); Neut % (Auto) 73.7 % (16.0-70.0); Platelet Count 264 th/mm3 (150-450); Red Blood Count 3.81 mil/mm3 (4.00-5.30); Red Cell Distribution Width 15.5 % (11.6-17.2); White Blood Count 9.9 th/mm3 (4.0-11.0)
[2018-01-31] MEDS: Ciprofloxacin 250 MG Tablet PO SCH ×2 (08:21→21:40)
[2018-01-31 08:31] LABS: Anion Gap 9 meq/L (5-15); Blood Urea Nitrogen 4 mg/dL (7-18); Calcium 7.5 mg/dL (8.5-10.1); Carbon Dioxide 20.5 meq/L (21.0-32.0); Chloride 116 meq/L (98-107); Glomerular Filtration Rate Greater Than 89 mL/min (>89); Glucose,Random 96 mg/dL (74-106); Sodium 145 meq/L (136-145)
[2018-01-31 08:49] LABS: Bacteria,Urine Occasional /hpf; Bilirubin,Urine Negative (Negative); Clarity,Urine Hazy (Clear); Color,Urine Straw (Yellw/Straw); Glucose,Urine (UA) Negative (Negative); Leukocyte Esterase,Urine Negative (Negative); Mucus,Urine Few /lpf (Occasional); Nitrite,Urine Negative (Negative); Specific Gravity,Urine 1.006 (1.002-1.035); Squamous Epithelial Cell,Urine 1 /hpf (0-5)
--- NOTE | 2018-01-31 09:21 | P.PNNEU ---
Subjective Subjective Comments: No acute events, denies any headache focal weakness vision loss. Anxious about having to stay in the hospital Active Medications: Active Medications Acetaminophen (Tylenol Supp) 650 mg RECTAL Q6H PRN PRN Reason: FEVER Last Admin: 01/23/18 15:27 Dose: 650 mg Albuterol (Duoneb Neb (Prn)) 1 ampul NEB Q2HR NEB PRN PRN Reason: SHORTNESS OF BREATH Bisacodyl (Dulcolax Supp) 10 mg RECTAL DAILY PRN PRN Reason: SEVERE CONSITIPATION Ciprofloxacin HCl (Cipro) 250 mg PO Q12HR [facility] Last Admin: 01/31/18 08:21 Dose: 250 mg Clonidine HCl (Catapres) 0.1 mg PO Q6H PRN PRN Reason: For SBP >/= 180, DBP >/= 100 Flumazenil (Romazecon Inj) 0.2 mg IV.PUSH Q1M PRN PRN Reason: OVERSEDATION Haloperidol Lactate (Haldol Inj) 1 mg IV.PUSH Q15M PRN PRN Reason: for severe agitation Last Admin: 01/23/18 11:32 Dose: 1 mg Sodium Chloride (Ns Inj) 500 mls @ 30 mls/hr IV.SIG .Q10H [facility] Last Admin: 01/29/18 14:58 Dose: Not Given Levothyroxine Sodium (Synthroid) 50 mcg PO DAILY@0600 [facility] Last Admin: 01/31/18 06:25 Dose: 50 mcg Lorazepam (Ativan) 1 mg PO Q4H PRN PRN Reason: for CIWA 8-10 Last Admin: 01/23/18 05:01 Dose: 1 mg Lorazepam (Ativan) 2 mg PO Q2H PRN PRN Reason: for CIWA 11-14 Lorazepam (Ativan Inj) 2 mg IV.PUSH Q2H PRN PRN Reason: for CIWA 11-14 Last Admin: 01/24/18 03:00 Dose: 2 mg Lorazepam (Ativan Inj) 2 mg IV.PUSH Q1H PRN PRN Reason: for CIWA 15-20 Lorazepam (Ativan Inj) 2 mg IV.PUSH Q15M PRN PRN Reason: for CIWA > 20 Lorazepam (Ativan Inj) 1 mg IV.PUSH Q4H PRN PRN Reason: for CIWA 8-10 Last Admin: 01/22/18 17:56 Dose: 1 mg Mirtazapine (Remeron Soltab Odt) 15 mg PO HS [facility] Last Admin: 01/30/18 22:15 Dose: 15 mg Pantoprazole Sodium (Protonix) 40 mg PO DAILY [facility] Last Admin: 01/31/18 08:21 Dose: 40 mg Paroxetine HCl (Paxil) 40 mg PO DAILY [facility] Last Admin: 01/31/18 08:21 Dose: 40 mg Sennosides (Senokot) 17.2 mg PO Q12H PRN PRN Reason: Moderate Constipation Sodium Chloride (Ns Flush) 2 ml IV.FLUSH PRN PRN PRN Reason: FLUSH AFTER USING IV ACCESS Thiamine HCl (Vitamin B1) 100 mg PO DAILY [facility] Last Admin: 01/31/18 08:21 Dose: 100 mg Allergies/Adverse Reactions: Allergies Allergy/AdvReac Type Severity Reaction Status Date / Time pentazocine Allergy Severe Hallucinati Verified 01/22/18 04:04 ons promethazine Allergy Severe Restlessnes Verified 01/22/18 04:04 s Review of Systems All other systems reviewed negative except as stated in HPI Physical Exam Vital signs: Vital Signs 01/30/18 10:26 01/30/18 11:32 01/30/18 13:34 Temperature 98.1 F Pulse Rate 109 H 114 H 116 H Respiratory Rate 18 Blood Pressure 126/76 Pulse Oximetry 99 01/30/18 16:09 01/30/18 17:00 01/30/18 20:00 Temperature 97.9 F 97.8 F Pulse Rate 103 H 124 H 115 H Respiratory Rate 18 18 Blood Pressure 121/76 127/80 Pulse Oximetry 100 98 01/31/18 00:00 01/31/18 04:00 Temperature 98.3 F 98.8 F Pulse Rate 118 H 117 H Respiratory Rate 18 18 Blood Pressure 142/70 H 135/77 Pulse Oximetry 98 98 Intake & Output 01/30/18 01/31/18 01/31/18 18:59 06:59 18:59 Intake Total 1000 / 1000 Balance 1000 / 1000 Weight 57.9 kg Intake: IV 1000 / 1000 NS + KCl 20 mEq Inj 1,000 ML @ 1000 / 1000 125 mls/hr IV.CONT .Q8H [facility] Rx# :[id number] Other: # Incontinent Voids 1 Date of Last Bowel Movement 01/31/18 01/31/18 # Bowel Movements 1 1 # Incontinent Bowel Movements 1 Narrative: GENERAL: Patient lying in bed. Appears comfortable. SKIN: Warm and dry. HEAD: Atraumatic. Normocephalic. EYES: Pupils equal and round. No scleral icterus. No injection or drainage. ENT: No nasal bleeding or discharge. Mucous membranes pink and moist. NECK: Trachea midline. No JVD. CARDIOVASCULAR: Regular rate and rhythm. RESPIRATORY: No accessory muscle use. GASTROINTESTINAL: Abdomen soft, non-tender, nondistended. MUSCULOSKELETAL: Extremities without clubbing, cyanosis, or edema. No obvious deformities. NEUROLOGICAL: alert, Oriented, speaking on the phone, wet rag on her forehead, follows no tremors no facial asymmetry visual barros grossly full blink to threat, no drift PSYCHIATRIC: Calm pleasant - Constitutional no acute distress - Routine HEENT Exam Head: Present: normocephalic Objective Laboratory Results - last 24 hr 01/30/18 01/30/18 01/30/18 11:31 17:17 20:48 WBC RBC Hgb Hct MCV MCH MCHC RDW Plt Count MPV Neut % (Auto) Lymph % (Auto) [place] % (Auto) Eos % (Auto) Baso % (Auto) Neut # (Auto) Lymph # (Auto) [place] # (Auto) Eos # (Auto) Baso # (Auto) WBC Differential Differential Comment Sodium Potassium Chloride Carbon Dioxide Anion Gap BUN Creatinine Estimated GFR POC Glucose 109 115 H 141 H Random Glucose Calcium Urine Color Urine Clarity Urine pH Ur Specific [place] Urine Protein Urine Glucose (UA) Urine Ketones Urine Occult Blood Urine Nitrate Urine Bilirubin Urine Urobilinogen Ur Leukocyte Esterase Urine RBC Urine WBC Ur Squamous Epith Cells Urine Bacteria Urine Mucus Micro UA Comment Ur Microscopic Review Urine Culture Comments 01/31/18 01/31/18 01/31/18 06:35 06:40 06:40 WBC 9.9 RBC 3.81 L Hgb 11.6 Hct 35.2 MCV 92.5 MCH 30.3 MCHC 32.8 RDW 15.5 Plt Count 264 MPV 8.7 Neut % (Auto) 73.7 H Lymph % (Auto) 13.4 [place] % (Auto) 10.0 H Eos % (Auto) 2.6 Baso % (Auto) 0.3 Neut # (Auto) 7.3 Lymph # (Auto) 1.3 [place] # (Auto) 1.0 H Eos # (Auto) 0.3 Baso # (Auto) 0.0 WBC Differential . Differential Comment Auto diff final Sodium 145 Potassium 4.0 Chloride 116 H Carbon Dioxide 20.5 L Anion Gap 9 BUN 4 L Creatinine 0.59 Estimated GFR Greater than 89 POC Glucose Random Glucose 96 Calcium 7.5 L Urine Color Straw Urine Clarity Hazy H Urine pH 6.0 Ur Specific [place] 1.006 Urine Protein Negative Urine Glucose (UA) Negative Urine Ketones Negative Urine Occult Blood Negative Urine Nitrate Negative Urine Bilirubin Negative Urine Urobilinogen Less than 2 Ur Leukocyte Esterase Negative Urine RBC Less than 1 Urine WBC 1 Ur Squamous Epith Cells 1 Urine Bacteria Occasional H Urine Mucus Few H Micro UA Comment Culture not ind Ur Microscopic Review Not Reportable Urine Culture Comments Culture not ind Review/Management - Diagnosis (1) Acute encephalopathy Code(s): G93.40 - Encephalopathy, unspecified Status: Acute Current Visit: Yes (2) Altered mental status Code(s): R41.82 - Altered mental status, unspecified Status: Acute Current Visit: Yes (3) Acute drug overdose Code(s): T50.901A - Poisoning by unspecified drugs, medicaments and biological substances, accidental (unintentional), initial encounter Status: Acute Current Visit: Yes - Review/Management Plan: Oral buccal dyskinesias, encephalopathy likely related to excessive medication intake and thus likely a drug-induced encephalopathy Resolved. Daughter states it was not an intentional overdose she required the medication for severe insomnia EEG artifact no obvious seizure activity MRI brain did not show any acute stroke Recommendations doing very well therapy nutritional support Discharge planning No driving Supervision over her medications at home may require home health care (2) Altered mental status Qualifiers: Altered mental status type: disorientation Qualified Code(s): R41.0 - Disorientation, unspecified (3) Acute drug overdose Qualifiers: Encounter type: initial encounter Injury intent: undetermined intent Qualified Code(s): T50.904A - Poisoning by unspecified drugs, medicaments and biological substances, undetermined, initial encounter
--- NOTE | 2018-01-31 13:05 | P.PNIM ---
Subjective Interval history: Mrs. Roth was afebrile with tachycardia overnight (persistent HR ~110-120bpm) . Per nursing staff, she was notified by telemetry tracking of some persistent HR ~140. Patient also has had groin rash. Patient also has had loose stools which have been chronic; they do not look similar to that of infectious per nursing. Patient reports that she is doing well without complaints. When questioned about rash, patient states that it sometimes itches and is painful. No chest pain, shortness of breath, or abnormal urination. She is trying to change her diet to improve her stool consistency. Physical Exam Vital signs: Vital Signs 01/30/18 13:34 01/30/18 16:09 01/30/18 17:00 Temperature 97.9 F Pulse Rate 116 H 103 H 124 H Respiratory Rate 18 Blood Pressure 121/76 Pulse Oximetry 100 01/30/18 20:00 01/31/18 00:00 01/31/18 04:00 Temperature 97.8 F 98.3 F 98.8 F Pulse Rate 115 H 118 H 117 H Respiratory Rate 18 18 18 Blood Pressure 127/80 142/70 H 135/77 Pulse Oximetry 98 98 98 01/31/18 08:00 Temperature 98.8 F Pulse Rate 118 H Respiratory Rate 20 Blood Pressure 136/78 Pulse Oximetry 100 Intake & Output 01/30/18 01/31/18 01/31/18 18:59 06:59 18:59 Intake Total 1000 / 1000 Balance 1000 / 1000 Weight 57.9 kg Intake: IV 1000 / 1000 NS + KCl 20 mEq Inj 1,000 ML @ 1000 / 1000 125 mls/hr IV.CONT .Q8H [facility] Rx# :[id number] Other: # Incontinent Voids 1 Date of Last Bowel Movement 01/31/18 01/31/18 # Bowel Movements 1 1 # Incontinent Bowel Movements 1 Narrative: GENERAL: no distress.Thin SKIN: Warm and dry. EYES: EOM grossly I ENT: Mucous membranes moist CARDIOVASCULAR: Tachycardia to ~110's ; regular rhythm. Grossly normal perfusion RESPIRATORY: CTAB; normal rate GASTROINTESTINAL: Abdomen soft, non-tender, nondistended MUSCULOSKELETAL: Grossly normal ROM and motor function NEUROLOGICAL: Awake and alert. Grossly normal CN. Grossly normal peripheral motor/sensory function PSYCHIATRIC: somewhat frustrated about repeated testing Results - Labs CBC & Chem 7: 01/31/18 06:40 01/31/18 06:40 Laboratory Results - last 24 hr 01/30/18 01/30/18 01/31/18 17:17 20:48 06:35 WBC RBC Hgb Hct MCV MCH MCHC RDW Plt Count MPV Neut % (Auto) Lymph % (Auto) [place] % (Auto) Eos % (Auto) Baso % (Auto) Neut # (Auto) Lymph # (Auto) [place] # (Auto) Eos # (Auto) Baso # (Auto) WBC Differential Differential Comment Sodium Potassium Chloride Carbon Dioxide Anion Gap BUN Creatinine Estimated GFR POC Glucose 115 H 141 H Random Glucose Calcium Urine Color Straw Urine Clarity Hazy H Urine pH 6.0 Ur Specific [place] 1.006 Urine Protein Negative Urine Glucose (UA) Negative Urine Ketones Negative Urine Occult Blood Negative Urine Nitrate Negative Urine Bilirubin Negative Urine Urobilinogen Less than 2 Ur Leukocyte Esterase Negative Urine RBC Less than 1 Urine WBC 1 Ur Squamous Epith Cells 1 Urine Bacteria Occasional H Urine Mucus Few H Micro UA Comment Culture not ind Ur Microscopic Review Not Reportable Urine Culture Comments Culture not ind 01/31/18 01/31/18 01/31/18 06:40 06:40 09:31 WBC 9.9 RBC 3.81 L Hgb 11.6 Hct 35.2 MCV 92.5 MCH 30.3 MCHC 32.8 RDW 15.5 Plt Count 264 MPV 8.7 Neut % (Auto) 73.7 H Lymph % (Auto) 13.4 [place] % (Auto) 10.0 H Eos % (Auto) 2.6 Baso % (Auto) 0.3 Neut # (Auto) 7.3 Lymph # (Auto) 1.3 [place] # (Auto) 1.0 H Eos # (Auto) 0.3 Baso # (Auto) 0.0 WBC Differential . Differential Comment Auto diff final Sodium 145 Potassium 4.0 Chloride 116 H Carbon Dioxide 20.5 L Anion Gap 9 BUN 4 L Creatinine 0.59 Estimated GFR Greater than 89 POC Glucose 82 Random Glucose 96 Calcium 7.5 L Urine Color Urine Clarity Urine pH Ur Specific [place] Urine Protein Urine Glucose (UA) Urine Ketones Urine Occult Blood Urine Nitrate Urine Bilirubin Urine Urobilinogen Ur Leukocyte Esterase Urine RBC Urine WBC Ur Squamous Epith Cells Urine Bacteria Urine Mucus Micro UA Comment Ur Microscopic Review Urine Culture Comments - Procedures NONE Assessment and Plan - Assessment (1) Toxic encephalopathy Code(s): G92 - Toxic encephalopathy Status: Acute (2) Weakness Code(s): R53.1 - Weakness Status: Acute (3) Esophagitis Code(s): K20.9 - Esophagitis, unspecified Status: Acute (4) Duodenal ulcer disease Code(s): K26.9 - Duodenal ulcer, unspecified as acute or chronic, without hemorrhage or perforation Status: Acute (5) UTI (urinary tract infection) Code(s): N39.0 - Urinary tract infection, site not specified Status: Acute - Plan In summary this is a 77-year-old female patient with a medical history that is significant for hypothyroidism, insomnia, chronic pain who presents to [facility] ED with altered mental status. Per ER report the patient had apparently taken 36 tablets of Unisom over the past week. Toxic encephalopathy Seizure disorder Likely suspected overdose on Unasyn Impression: 01/30; patient seems to have normal mental status Per review of EMR, gradual improvement. MRI and EEG negative. IV acyclovir initially given but discontinued Psych was consulted; no admission needed and cleared for DC to rehab Neurology consulted- drug induced encephalopathy suspected. -Nutritional consult and therapy recommended Weakness, low BMI -Palliative care consulted -Continue PT -Interior Painter consulted- -Will plan to replete electrolytes and evaluate anemia further -hypokalemia- stable today -Mg stable -Hypocalcemia- oral calcium started Hemoccult positive Impression: No obvious bleeding. Stable Hgb ~10.7. Distant colonoscopy but no recent studies -GI consulted -EGD- esophagitis, mild gastritis observed (biopsied). Large nonbleeding duodenal ulcers found -Colonoscopy-sessile/flat polyps removed by polypectomy; large hemorrhoids found -Diet as tolerated -PPI- Pantoprazole 40mg daily UTI Urine culture significant for E. coli Cultures and sensitivities resulted, started 01/26 cipro 250 mg BID- will plan to stop 02/02 Tachycardia Impression: Persistent in ~110's; this was previous in hospitalization. Possible decreased IVF overnight. No associated leukocytosis today. Repeat UA negative -will restart maintenance to 125ml/hr -Will repeat EKG- sinus tachycardia -Since seemingly no infectious etiology will monitor at this time for hypovolemia and monitor oral intake; could also be sinus tachycardia which is chronic Depression Impression: reported suicide attempt 01/26; cleared by Psychiatry - Continue Remeron and paroxetine Hypothyroidism - cont synthroid 50 mg daily COPD Impression: breathing well currently -Continue PRN duonebs Chronic back pain Narcotics have been held, currently on a high-dose of pain medication Groin rash Impression: will attempt to improve irritation and suspected fungal component with clotrimazole/steroid topical cream BID DVT PPX -SCD's; recent bleed Code Status: Full code Discharge Planning: Discharge to rehab
--- NOTE | 2018-02-01 00:36 | ECG ---
Date Performed: 01/30/2018 Time Performed: 19:39:21 PTAGE: 77 years EKG: SINUS TACHYCARDIA WITH SHORT [place] INTERVAL ABNORMAL RHYTHM ECG PREVIOUS TRACING : 01/22/2018 09.16 Since the previous tracing, no significant change noted DOCTOR: Domenico Powers Interpretating Date/Time 02/01/2018 00:34:59
[2018-02-01] MEDS: Levothyroxine 50 MCG Tablet PO SCH (05:29)
[2018-02-01 06:52] LABS: Baso # (Auto) 0.1 th/mm3 (0.0-0.2); Baso % (Auto) 0.6 % (0.0-2.0); Eos # (Auto) 0.2 th/mm3 (0.0-0.4); Eos % (Auto) 2.4 % (0.0-4.0); Hematocrit 33.4 % (35.0-46.0); Lymph # (Auto) 1.7 th/mm3 (1.0-4.8); Lymph % (Auto) 17.4 % (9.0-44.0); Mean Corpuscular HGB Conc 33.1 % (32.0-36.0); Mean Corpuscular Hemoglobin 30.8 pg (27.0-34.0); Mean Corpuscular Volume 93.1 fL (80.0-100.0); Mean Platelet Volume 8.6 fL (7.0-11.0); Mono # (Auto) 0.9 th/mm3 (0.0-0.9); Mono % (Auto) 9.1 % (0.0-8.0); Neut # (Auto) 6.8 th/mm3 (1.8-7.7); Neut % (Auto) 70.5 % (16.0-70.0); Platelet Count 239 th/mm3 (150-450); Red Blood Count 3.58 mil/mm3 (4.00-5.30); Red Cell Distribution Width 15.8 % (11.6-17.2); White Blood Count 9.7 th/mm3 (4.0-11.0)
[2018-02-01 07:20] LABS: Anion Gap 7 meq/L (5-15); Blood Urea Nitrogen 6 mg/dL (7-18); Carbon Dioxide 21.1 meq/L (21.0-32.0); Chloride 116 meq/L (98-107); Glomerular Filtration Rate Greater Than 89 mL/min (>89); Glucose,Random 90 mg/dL (74-106); Potassium 4.3 meq/L (3.5-5.1); Sodium 144 meq/L (136-145)
[2018-02-01 07:32] LABS: Total Protein 5.7 g/dL (6.4-8.2)
[2018-02-01 08:18] LABS: Platelet Estimate Normal (Normal); Platelet Morphology Normal (Normal)
[2018-02-01] MEDS: Ciprofloxacin 250 MG Tablet PO SCH ×2 (10:57→21:02)
--- NOTE | 2018-02-01 12:36 | P.DS ---
Date of admission: 01/24/18 09:50 Primary care physician: Bibi Vilchis MD Brief History from admission: HPI from the admitting physician: 77-year-old female with history of hypothyroidism, insomnia, chronic pain who presents with altered mental status. Patient appears to have internal stimuli. Family reports that she has had about 36 tablets of Unisom over the past week. Patient denies any pain, however is very distracted and with disjointed speech. Family not at bedside during exam, and history is obtained from chart review. DS: Diagnosis - Discharge Diagnosis (1) Altered mental status Status: Acute (2) Acute drug overdose Status: Acute (3) Acute encephalopathy Status: Acute (4) Duodenal ulcer disease Status: Acute (5) Seizure disorder Status: Acute (6) Hypertension Status: Acute (7) Hypothyroidism Status: Acute (8) COPD (chronic obstructive pulmonary disease) Status: Acute DS: Medications - Discharge Medications Prescriptions: pantoprazole 40 mg PO DAILY #30 tab DS: Summary Hospital Course: In summary this is a 77-year-old female patient with a medical history that is significant for hypothyroidism, insomnia, chronic pain who presents to [facility] with altered mental status. Per ER report the patient had apparently taken 36 tablets of Unisom over the past week. Treatment course detailed below: Toxic encephalopathy Seizure disorder Likely suspected overdose on Unasyn Impression: 01/30; patient seems to have normal mental status Per review of EMR, gradual improvement. MRI and EEG negative. IV acyclovir initially given but discontinued Psych was consulted; no admission needed and cleared for DC to rehab Neurology consulted- drug induced encephalopathy suspected. Encephalopathy resolved. The patient is discharged to rehab Weakness, low BMI -Emergency Manager followed. Oral intake improved. Electrolytes replaced. Hemoccult positive Impression: No obvious bleeding. Stable Hgb ~10.7. Distant colonoscopy but no recent studies -GI consulted -EGD- esophagitis, mild gastritis observed (biopsied). Large nonbleeding duodenal ulcers found -Colonoscopy-sessile/flat polyps removed by polypectomy; large hemorrhoids found -Diet as tolerated -PPI- Pantoprazole 40mg daily UTI Urine culture significant for E. coli Cultures and sensitivities resulted, started 01/26 cipro 250 mg BID- will plan to stop 02/02 Tachycardia Impression: Persistent in ~110's; this was previous in hospitalization. Possible decreased IVF overnight. No associated leukocytosis today. Repeat UA negative -will restart maintenance to 125ml/hr -Will repeat EKG- sinus tachycardia -Since seemingly no infectious etiology will monitor at this time for hypovolemia and monitor oral intake; could also be sinus tachycardia which is chronic Depression Impression: reported suicide attempt 01/26; cleared by Psychiatry - Continue Remeron and paroxetine Hypothyroidism - cont synthroid 50 mg daily COPD Impression: breathing well currently -Continue PRN duonebs Chronic back pain Narcotics have been held, patient is doing well without it. Groin rash Impression: will attempt to improve irritation and suspected fungal component with clotrimazole/steroid topical cream BID - Time Spent with Patient Total time spent providing and/or coordinating discharge services: Greater than 30 minutes - Quality: VTE Deep Vein Thrombosis/Pulmonary Embolism Present on Admission: No Exam Vital signs: Vital Signs 01/31/18 20:00 02/01/18 00:00 02/01/18 04:00 Temperature 97.9 F 98.0 F 97.9 F Pulse Rate 108 H 117 H 102 H Respiratory Rate 20 18 18 Blood Pressure 139/76 136/85 123/84 Pulse Oximetry 98 100 99 02/01/18 08:00 02/01/18 11:57 Temperature 98.6 F 98.3 F Pulse Rate 118 H 107 H Respiratory Rate 18 Blood Pressure 127/60 143/82 H Pulse Oximetry 99 99 Intake & Output 01/31/18 02/01/18 02/01/18 18:59 06:59 18:59 Intake Total 2019 2240 / 2240 Output Total Balance 2018 2240 / 2240 Weight 44.5 kg Intake: IV 2019 NS + KCl 20 mEq Inj 1,000 ML @ 1999 125 mls/hr IV.CONT .Q8H JOSEPH Rx# :[id number] Oral 240 / 240 Output: Urine Other: # Voids 3 Date of Last Bowel Movement 01/31/18 01/31/18 # Bowel Movements 1 1 Narrative: GENERAL: Elderly and frail female, in no apparent distress. CARDIOVASCULAR: Normal rate and regular rhythm without murmurs, gallops, or rubs. RESPIRATORY: Good respiratory efforts. Breath sounds equal and clear to auscultation bilaterally. GASTROINTESTINAL: Abdomen soft, non-tender, non-distended. Normal active bowel sounds MUSCULOSKELETAL: Extremities without cyanosis, or edema. NEURO: Alert & Oriented x4 to person, place, time, situation. Moves all ext x4. Generalized weakness PSYCH: Appropriate mood and affect. Results Procedures completed during hospitalization: NONE Labs on day of discharge: Labs from last 24 hours 02/01/18 02/01/18 02/01/18 12:31 08:06 06:28 WBC RBC Hgb Hct MCV MCH MCHC RDW Plt Count MPV Prelim Diff (Auto) Neut % (Auto) Lymph % (Auto) [place] % (Auto) Eos % (Auto) Baso % (Auto) Neut # (Auto) Lymph # (Auto) [place] # (Auto) Eos # (Auto) Baso # (Auto) WBC Differential Diff Scan Differential Comment Platelet Estimate Platelet Morphology Sodium 144 Potassium 4.3 Chloride 116 H Carbon Dioxide 21.1 Anion Gap 7 BUN 6 L Creatinine 0.54 Estimated GFR Greater than 89 POC Glucose 97 88 Random Glucose 90 Calcium 7.0 L* Prot Corrected Calcium 7.7 L Total Protein 5.7 L 02/01/18 01/31/18 01/31/18 06:28 18:02 13:13 WBC 9.7 RBC 3.58 L Hgb 11.0 L Hct 33.4 L MCV 93.1 MCH 30.8 MCHC 33.1 RDW 15.8 Plt Count 239 MPV 8.6 Prelim Diff (Auto) Slide review pending Neut % (Auto) 70.5 H Lymph % (Auto) 17.4 [place] % (Auto) 9.1 H Eos % (Auto) 2.4 Baso % (Auto) 0.6 Neut # (Auto) 6.8 Lymph # (Auto) 1.7 [place] # (Auto) 0.9 Eos # (Auto) 0.2 Baso # (Auto) 0.1 WBC Differential . Diff Scan Auto diff confirmed Differential Comment . Platelet Estimate Normal Platelet Morphology Normal Sodium Potassium Chloride Carbon Dioxide Anion Gap BUN Creatinine Estimated GFR POC Glucose 99 128 H Random Glucose Calcium Prot Corrected Calcium Total Protein - Impressions ITS Impressions Chest X-Ray 01/21/18 23:26 CONCLUSION: No acute cardiopulmonary disease demonstrated. Head CT 01/21/18 23:26 CONCLUSION: Motion degraded study. No acute abnormality demonstrated. . Head MRI 01/23/18 09:17 CONCLUSION: 1. No acute abnormality. 2. Atrophy. Discharge Plan - Discharge Disposition Patient Disposition: 03 Discharge to SNF - Discharge Condition Condition: Stable - Discharge Order Discharge Orders: Discharge Order (Routine); Ordered 02/01/18 Ordered By: Alin Slaughter - Physicians Team Primary Care Provider: Bibi Vilchis Attending Provider: Alin Slaughter Other Providers: Haritha Mg ; Man Bond MD ; Ezra Morales MD ; Irma Mahajan MD ; Maurizio Eaton MD ; Jace Cortes MD ; [facility]ency ; [facility],[place] ; [facility] ,Agency
--- NOTE | 2018-02-01 13:56 | ECG ---
Date Performed: 01/31/2018 Time Performed: 15:49:14 PTAGE: 77 years EKG: SINUS TACHYCARDIA WITH OCCASIONAL SUPRAVENTRICULAR PREMATURE COMPLEXES LOW QRS VOLTAGE IN E XTREMITY LEADS ABNORMAL RHYTHM ECG Since the PREVIOUS TRACING , no significant change noted PREVIOUS TRACIN01/30/2018 19.39 DOCTOR: Tiffany Ngo Interpretating Date/Time 02/01/2018 13:54:30
[2018-02-02] MEDS: Levothyroxine 50 MCG Tablet PO SCH (05:40)
[2018-02-02] MEDS: Ciprofloxacin 250 MG Tablet PO SCH (08:41)
--- NOTE | 2018-02-02 10:41 | P.PNIM ---
Subjective Interval history: Patient discharged on 02/01/18. Awaiting bed at SNF. Patient had one episode of loose stool today. Physical Exam Vital signs: Vital Signs 02/01/18 11:57 02/01/18 16:00 02/01/18 20:00 Temperature 98.3 F 98.2 F 98.1 F Pulse Rate 107 H 95 H 105 H Respiratory Rate 18 20 16 Blood Pressure 143/82 H 151/84 H 126/74 Pulse Oximetry 99 100 96 02/02/18 00:00 02/02/18 04:00 02/02/18 08:00 Temperature 97.8 F 97.5 F L 98.1 F Pulse Rate 91 H 113 H 105 H Respiratory Rate 16 18 20 Blood Pressure 134/76 135/73 126/75 Pulse Oximetry 99 98 99 Intake & Output 02/01/18 02/02/18 02/02/18 18:59 06:59 18:59 Intake Total 1000 / 1000 2301 / 2301 Balance 1000 / 1000 2301 / 2301 Weight 46.5 kg Intake: IV 1000 / 1000 1000 / 1000 NS + KCl 20 mEq Inj 1,000 ML @ 1000 / 1000 1000 / 1000 125 mls/hr IV.CONT .Q8H JOSEPH Rx# :[id number] Oral 1301 / 1301 Other: # Voids 6 Date of Last Bowel Movement 01/31/18 02/01/18 # Bowel Movements 1 Narrative: GENERAL: no distress.Thin CARDIOVASCULAR: Normal rate and regular rhythm. RESPIRATORY: CTAB; normal rate GASTROINTESTINAL: Abdomen soft, non-tender, nondistended MUSCULOSKELETAL: Grossly normal ROM and motor function NEUROLOGICAL: Awake and alert. Grossly normal CN. Results - Labs CBC & Chem 7: 02/01/18 06:28 02/01/18 06:28 Laboratory Results - last 24 hr 02/01/18 02/01/18 02/01/18 12:31 17:24 20:22 POC Glucose 97 103 98 02/02/18 07:52 POC Glucose 124 H - Procedures NONE Assessment and Plan - Assessment (1) Altered mental status Code(s): R41.82 - Altered mental status, unspecified Status: Acute (2) Acute drug overdose Code(s): T50.901A - Poisoning by unspecified drugs, medicaments and biological substances, accidental (unintentional), initial encounter Status: Acute (3) Acute encephalopathy Code(s): G93.40 - Encephalopathy, unspecified Status: Acute (4) Duodenal ulcer disease Code(s): K26.9 - Duodenal ulcer, unspecified as acute or chronic, without hemorrhage or perforation Status: Acute (5) Seizure disorder Code(s): G40.909 - Epilepsy, unspecified, not intractable, without status epilepticus Status: Acute (6) Hypertension Code(s): I10 - Essential (primary) hypertension Status: Acute (7) Hypothyroidism Code(s): E03.9 - Hypothyroidism, unspecified Status: Acute (8) COPD (chronic obstructive pulmonary disease) Code(s): J44.9 - Chronic obstructive pulmonary disease, unspecified Status: Acute - Plan 77-year-old female patient with a medical history that is significant for hypothyroidism, insomnia, chronic pain who presents to [facility] ED with altered mental status. Per ER report the patient had apparently taken 36 tablets of Unisom over the past week. Treatment course detailed below: Toxic encephalopathy Seizure disorder Likely suspected overdose on Unasyn Impression: 01/30; patient seems to have normal mental status Per review of EMR, gradual improvement. MRI and EEG negative. IV acyclovir initially given but discontinued Psych was consulted; no admission needed and cleared for DC to rehab Neurology consulted- drug induced encephalopathy suspected. Encephalopathy resolved. The patient is discharged to rehab once a bed becomes available. Weakness, low BMI -Supervisor Painting Department followed. Oral intake improved. Electrolytes replaced. Hemoccult positive Impression: No obvious bleeding. Stable Hgb ~10.7. Distant colonoscopy but no recent studies -GI consulted -EGD- esophagitis, mild gastritis observed (biopsied). Large nonbleeding duodenal ulcers found -Colonoscopy-sessile/flat polyps removed by polypectomy; large hemorrhoids found -Diet as tolerated -PPI- Pantoprazole 40mg daily UTI Urine culture significant for E. coli Cultures and sensitivities resulted, completed treatment with Cipro. Diarrhea X1: Suspect this is related to antibiotics. No abdominal pain. Only had one episode. - Antibiotics discontinued. Continue to monitor. Imodium PRN. If persist, will obtain C diff. Hypothyroidism - cont synthroid 50 mg daily COPD breathing well currently -Continue PRN duonebs Chronic back pain Narcotics have been held, patient is doing well without it. Discharge Planning: Patient is discharged. Awaiting acceptance to [facility]. (1) Altered mental status Qualifiers: Altered mental status type: disorientation Qualified Code(s): R41.0 - Disorientation, unspecified (2) Acute drug overdose Qualifiers: Encounter type: initial encounter Injury intent: undetermined intent Qualified Code(s): T50.904A - Poisoning by unspecified drugs, medicaments and biological substances, undetermined, initial encounter
[2018-02-02] MEDS: Loperamide 2 MG Capsule PO PRN (15:05)
[2018-02-03] MEDS: Levothyroxine 50 MCG Tablet PO SCH (06:01)
--- NOTE | 2018-02-03 10:29 | P.DCO ---
- Diagnosis (1) Acute drug overdose - Physical Therapy Order: Evaluate and treat, Improve ambulation, Strength and gait training - Home Health Nursing Order: Medical education, Medication education-adverse effect, Nursing assessment with vital signs - Certification I have seen patient Sarah Roth on 02/03/18. My clinical findings support the need for the requested home health care services because: Deconditioned with increased weakness I certify that my clinical findings support that this patient is homebound because: Unsteady gait/balance (1) Acute drug overdose Qualifiers: Encounter type: initial encounter Injury intent: undetermined intent Qualified Code(s): T50.904A - Poisoning by unspecified drugs, medicaments and biological substances, undetermined, initial encounter
--- NOTE | 2018-02-03 10:33 | P.PNIM ---
Subjective Interval history: The patient reports she is feeling much better. No longer having diarrhea. She wants to go home. She adamantly refused going to SNF. She states she is feeling stronger and can manage at home she has a lot of help at home. Physical Exam Vital signs: Vital Signs 02/02/18 12:00 02/02/18 16:00 02/02/18 20:00 Temperature 97.8 F 98.9 F 97.5 F L Pulse Rate 117 H 113 H 117 H Respiratory Rate 14 12 18 Blood Pressure 132/79 125/75 126/71 Pulse Oximetry 100 99 96 02/03/18 00:00 02/03/18 04:00 02/03/18 08:00 Temperature 97.8 F 97.2 F L 97.4 F L Pulse Rate 98 H 102 H 126 H Respiratory Rate 18 18 14 Blood Pressure 124/72 123/72 127/75 Pulse Oximetry 96 96 98 Intake & Output 02/02/18 02/03/18 02/03/18 18:59 06:59 18:59 Other: Date of Last Bowel Movement 02/02/18 02/02/18 # Incontinent Bowel Movements 2 Narrative: GENERAL: no distress.Thin CARDIOVASCULAR: Normal rate and regular rhythm. RESPIRATORY: CTAB; normal rate GASTROINTESTINAL: Abdomen soft, non-tender, nondistended MUSCULOSKELETAL: Grossly normal ROM and motor function NEUROLOGICAL: Awake and alert. Grossly normal CN. Results - Labs CBC & Chem 7: 02/01/18 06:28 02/01/18 06:28 Laboratory Results - last 24 hr 02/02/18 02/02/18 02/03/18 12:52 17:52 08:43 POC Glucose 122 H 110 113 H - Procedures NONE Assessment and Plan - Assessment (1) Acute drug overdose Code(s): T50.901A - Poisoning by unspecified drugs, medicaments and biological substances, accidental (unintentional), initial encounter Status: Acute (2) Acute encephalopathy Code(s): G93.40 - Encephalopathy, unspecified Status: Acute (3) Toxic encephalopathy Code(s): G92 - Toxic encephalopathy Status: Acute (4) Weakness Code(s): R53.1 - Weakness Status: Acute (5) Esophagitis Code(s): K20.9 - Esophagitis, unspecified Status: Acute (6) Duodenal ulcer disease Code(s): K26.9 - Duodenal ulcer, unspecified as acute or chronic, without hemorrhage or perforation Status: Acute (7) Altered mental status Code(s): R41.82 - Altered mental status, unspecified Status: Acute (8) COPD (chronic obstructive pulmonary disease) Code(s): J44.9 - Chronic obstructive pulmonary disease, unspecified Status: Acute (9) Hypothyroidism Code(s): E03.9 - Hypothyroidism, unspecified Status: Acute (10) Hypertension Code(s): I10 - Essential (primary) hypertension Status: Acute (11) Seizure disorder Code(s): G40.909 - Epilepsy, unspecified, not intractable, without status epilepticus Status: Acute - Plan 77-year-old female patient with a medical history that is significant for hypothyroidism, insomnia, chronic pain who presents to [facility] ED with altered mental status. Per ER report the patient had apparently taken 36 tablets of Unisom over the past week. Treatment course detailed below: Toxic encephalopathy Seizure disorder Likely suspected overdose on Unasyn Impression: 01/30; patient seems to have normal mental status Per review of EMR, gradual improvement. MRI and EEG negative. IV acyclovir initially given but discontinued Psych was consulted; no admission needed and cleared for DC to rehab Neurology consulted- drug induced encephalopathy suspected. Encephalopathy resolved. The patient significantly improved. Initially was waiting for bed SNF. However she improved and stable enough to go home with home health. She is discharged home with home health. Weakness, low BMI -Flame Burner followed. Oral intake improved. Electrolytes replaced. Strength improved. Hemoccult positive Impression: No obvious bleeding. Stable Hgb ~10.7. Distant colonoscopy but no recent studies -GI consulted -EGD- esophagitis, mild gastritis observed (biopsied). Large nonbleeding duodenal ulcers found -Colonoscopy-sessile/flat polyps removed by polypectomy; large hemorrhoids found -Diet as tolerated -PPI- Pantoprazole 40mg daily to be continued at home. Follow-up outpatient with GI. UTI Urine culture significant for E. coli Cultures and sensitivities resulted, completed treatment with Cipro. Diarrhea X1: Suspect this was related to antibiotics. No abdominal pain. Only had one episode. - Antibiotics discontinued. No further episodes. Hypothyroidism - cont synthroid 50 mg daily COPD breathing well currently -Continue PRN duonebs Chronic back pain Narcotics have been held, patient is doing well without it. She was advised to use Tylenol as needed for pain. Discharge Planning: Patient can be discharged home with home health today in good condition Condition on discharge: Improved Regular Diet as tolerated Ad Justine activity Rx written: Per med rec Follow-up with primary care physician (1) Acute drug overdose Qualifiers: Encounter type: initial encounter Injury intent: undetermined intent Qualified Code(s): T50.904A - Poisoning by unspecified drugs, medicaments and biological substances, undetermined, initial encounter (7) Altered mental status Qualifiers: Altered mental status type: disorientation Qualified Code(s): R41.0 - Disorientation, unspecified
[2018-02-04] MEDS ORDERED: Metoprolol Tartrate 25 MG Tablet PO ONE (01:01)
[2018-02-04] MEDS: Levothyroxine 50 MCG Tablet PO SCH (06:18)
[2018-02-04] MEDS: Loperamide 2 MG Capsule PO PRN (13:36)
--- NOTE | 2018-02-04 14:09 | P.PNIM ---
Subjective Interval history: Patient discharge but could not go home yesterday because home health and DME could not be set up. She has no complaints today. Eager to go home. Physical Exam Vital signs: Vital Signs 02/03/18 16:00 02/03/18 20:00 02/04/18 00:00 Temperature 97.3 F L 98.0 F 98.0 F Pulse Rate 112 H 77 129 H Respiratory Rate 14 17 16 Blood Pressure 111/71 117/71 114/73 Pulse Oximetry 98 97 97 02/04/18 04:00 02/04/18 08:00 02/04/18 12:00 Temperature 97.7 F 98.1 F 98.1 F Pulse Rate 91 H 96 H 100 H Respiratory Rate 17 20 20 Blood Pressure 116/74 109/80 117/70 Pulse Oximetry 97 98 97 Intake & Output 02/03/18 02/04/18 02/04/18 18:59 06:59 18:59 Weight 43.9 kg Other: Date of Last Bowel Movement 02/02/18 02/02/18 # Incontinent Bowel Movements 2 Narrative: GENERAL: no distress.Thin CARDIOVASCULAR: Normal rate and regular rhythm. RESPIRATORY: CTAB; normal rate GASTROINTESTINAL: Abdomen soft, non-tender, nondistended MUSCULOSKELETAL: Grossly normal ROM and motor function NEUROLOGICAL: Awake and alert. Grossly normal CN. Results - Labs CBC & Chem 7: 02/01/18 06:28 02/01/18 06:28 - Procedures NONE Assessment and Plan - Assessment (1) Acute drug overdose Code(s): T50.901A - Poisoning by unspecified drugs, medicaments and biological substances, accidental (unintentional), initial encounter Status: Acute (2) Acute encephalopathy Code(s): G93.40 - Encephalopathy, unspecified Status: Acute (3) Toxic encephalopathy Code(s): G92 - Toxic encephalopathy Status: Acute (4) Weakness Code(s): R53.1 - Weakness Status: Acute (5) Esophagitis Code(s): K20.9 - Esophagitis, unspecified Status: Acute (6) Duodenal ulcer disease Code(s): K26.9 - Duodenal ulcer, unspecified as acute or chronic, without hemorrhage or perforation Status: Acute (7) Altered mental status Code(s): R41.82 - Altered mental status, unspecified Status: Acute (8) COPD (chronic obstructive pulmonary disease) Code(s): J44.9 - Chronic obstructive pulmonary disease, unspecified Status: Acute (9) Hypothyroidism Code(s): E03.9 - Hypothyroidism, unspecified Status: Acute (10) Hypertension Code(s): I10 - Essential (primary) hypertension Status: Acute (11) Seizure disorder Code(s): G40.909 - Epilepsy, unspecified, not intractable, without status epilepticus Status: Acute - Plan 77-year-old female patient with a medical history that is significant for hypothyroidism, insomnia, chronic pain who presents to [facility] ED with altered mental status. Per ER report the patient had apparently taken 36 tablets of Unisom over the past week. Treatment course detailed below: Toxic encephalopathy Seizure disorder Likely suspected overdose on Unasyn Impression: 01/30; patient seems to have normal mental status Per review of EMR, gradual improvement. MRI and EEG negative. IV acyclovir initially given but discontinued Psych was consulted; no admission needed and cleared for DC to rehab Neurology consulted- drug induced encephalopathy suspected. Encephalopathy resolved. The patient significantly improved. Initially was waiting for bed SNF. However she improved and stable enough to go home with home health. She is discharged home with home health. Patient can be discharged as soon as arrangements made for home health and DME. Weakness, low BMI -Program Support Specialist followed. Oral intake improved. Electrolytes replaced. Strength improved. Hemoccult positive Impression: No obvious bleeding. Stable Hgb ~10.7. Distant colonoscopy but no recent studies -GI consulted -EGD- esophagitis, mild gastritis observed (biopsied). Large nonbleeding duodenal ulcers found -Colonoscopy-sessile/flat polyps removed by polypectomy; large hemorrhoids found -Diet as tolerated -PPI- Pantoprazole 40mg daily to be continued at home. Follow-up outpatient with GI. UTI Urine culture significant for E. coli Cultures and sensitivities resulted, completed treatment with Cipro. Diarrhea X1: Suspect this was related to antibiotics. No abdominal pain. Only had one episode. - Antibiotics discontinued. No further episodes. Hypothyroidism - cont synthroid 50 mg daily COPD breathing well currently -Continue PRN duonebs Chronic back pain Narcotics have been held, patient is doing well without it. She was advised to use Tylenol as needed for pain. Discharge Planning: Patient can be discharged home with home health once arrangements are made Condition on discharge: Improved Regular Diet as tolerated Ad Justine activity Rx written: Per med rec Follow-up with primary care physician (1) Acute drug overdose Qualifiers: Encounter type: initial encounter Injury intent: undetermined intent Qualified Code(s): T50.904A - Poisoning by unspecified drugs, medicaments and biological substances, undetermined, initial encounter (7) Altered mental status Qualifiers: Altered mental status type: disorientation Qualified Code(s): R41.0 - Disorientation, unspecified
== END 2018-02-04 15:40 | disposition home health service (06) ==
LOC: NEPC 23:00 → NEDA 23:00 → NEDH 01-22 09:47 → NEPHCDU 01-22 11:07 → N05 01-25 21:04
PROVIDERS: ADMIT Family Medicine; ATTEND Family Medicine
PROC: COLONOS (2018-01-29 11:46)
PROC: PANENDO (2018-01-29 11:46)